=== PATIENT | male | born 1940 | race Caucasian/White ===

== ENCOUNTER → 2016-08-31 | Outpatient (CLI) | payer MEDICARE ==
[~2016-08-31] MED LIST: /TAMS4CA PO; ALLO300T PO; ASPI1TAB PO; BABY81CH OR; CARV3.12 PO; CEFT500T OR; CIPR25SS OR; CIPR500T4 OR; CITRTAB15 PO; CORE6.25 OR; COUM1TAB14 PO; FEBU40TA PO; FISH OIL CAPS PO; FLAG500T OR; HYDR25TA6 PO; LEVA250T PO; LISI20TA5 PO; PRIL40CA OR; SIMV10TA2 PO; TAMS0.4C2 PO; TYL PO; ZOCO40TA PO
[2016-08-31 19:35] LABS: CALCIUM LEVEL 8.3 MG/DL (8.8-10.2); CREATININE FOR GFR 8.26 MG/DL (0.70-1.30); GLOMERULAR FILTRATION RATE 6.7 (>42); POTASSIUM SERUM 3.9 MEQ/L (3.5-5.1)
== END ==
LOC: M SMT 15:10
PROVIDERS: ATTEND Urology
DX: N28.89 Other specified disorders of kidney and ureter (principal)

== ENCOUNTER → 2016-08-31 | Outpatient (CLI) | payer MEDICARE | LOC: M SMT 15:15 | PROVIDERS: ATTEND Internal Medicine Nephrology | DX: Z01.818 Encounter for other preprocedural examination (principal); N28.89 Other specified disorders of kidney and ureter ==

== ENCOUNTER 2016-09-14 20:25 | Emergency (ER) | payer MEDICARE ==
[~2016-09-14] VITALS: Ht 182.9 cm; Wt 81.6 kg
[2016-09-14] MEDS ORDERED: RENATAB5 (20:49)
[2016-09-14] MEDS ORDERED: MAGN400T2 (20:49)
[2016-09-14] MEDS ORDERED: SENE8.6T (20:49)
[2016-09-14] MEDS ORDERED: FOSR1000 (20:49)
[2016-09-14] MEDS ORDERED: WARF-58 (20:49)
[2016-09-14] MEDS ORDERED: CITRTAB15 PO (20:49)
[2016-09-14] MEDS ORDERED: ASPIRIN 81 MG CHEW TABLET PO ONE (21:30)
[2016-09-14 21:37] LABS: BASO % 0.5 % (0.0-1.0); EOS # 0.2 K/mm3 (0.0-0.50); EOS % 1.6 % (0.0-3.0); LARGE UNSTAINED CELL # 0.3 K/mm3 (0.0-0.4); LARGE UNSTAINED CELL % 2.6 % (0.0-4.0); LYMPH # 1.1 K/mm3 (1.5-4.5); LYMPH % 8.8 % (24.0-44.0); MEAN CORPUSCULAR HEMOGLOBIN 29.9 pg (27.0-33.0); MEAN CORPUSCULAR HGB CONC 32.1 g/dl (32.0-36.5); MEAN CORPUSCULAR VOLUME 93.2 fl (80.0-96.0); MONO # 0.8 K/mm3 (0.0-0.8); MONO % 7.9 % (0.0-5.0); NEUTROPHILS # 7.5 K/mm3 (1.8-7.7); NEUTROPHILS % 78.6 % (36.0-66.0); PLATELET COUNT, AUTOMATED 159 k/mm3 (150-450); WHITE BLOOD COUNT 9.5 K/mm3 (4.0-10.0)
[2016-09-14 21:43] LABS: INR 2.03
[2016-09-14 21:53] LABS: CALCIUM LEVEL 8.5 MG/DL (8.8-10.2); CREATININE FOR GFR 8.69 MG/DL (0.70-1.30); GLOMERULAR FILTRATION RATE 6.3 (>42); POTASSIUM SERUM 3.2 MEQ/L (3.5-5.1)
[2016-09-15 04:34] VITALS: BP 98/55
--- NOTE | 2016-09-15 06:16 | ECGEPIP ---
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
--- NOTE | 2016-09-19 19:49 | ECGEPIP ---
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 ATRIAL FIBRILLATION ELECTRONIC VENTRICULAR PACEMAKER -- CONTOUR ANALYSIS BASED ON INTRINSIC RHYTHM INTRAVENTRICULAR CONDUCTION DELAY PVCS CW 09/14/16 RATE INCREASED Electronically Signed On 09-19-2016 19:49:34 EDT by Kelin Hagen
== END 2016-09-15 04:44 | disposition home or self-care (01) ==
LOC: M ED 21:36
DX: R07.89 Other chest pain (principal); I48.91 Unspecified atrial fibrillation; I25.10 Atherosclerotic heart disease of native coronary artery without angina pectoris; N18.9 Chronic kidney disease, unspecified; Z99.2 Dependence on renal dialysis; Z79.899 Other long term (current) drug therapy; Z79.01 Long term (current) use of anticoagulants; Z79.82 Long term (current) use of aspirin; Z88.8 Allergy status to other drugs, medicaments and biological substances

== ENCOUNTER 2016-11-09 09:23 | Inpatient (IN) | payer MEDICARE ==
[~2016-11-09] VITALS: Ht 183.5 cm; Wt 87.9 kg
[~2016-11-09 09:23] MED LIST changes: +FOSR1000 PO; +MAGN400T2 PO; +RENATAB5 PO; +SENE8.6T PO; +WARF-58
[2016-11-09] MEDS ORDERED: ACETAMINOPHEN TAB 650MG DOSE (2X325MG) PO PRN (10:00)
[2016-11-09] MEDS ORDERED: zolPIDEM TARTRATE 5 MG TAB PO PRN (10:00)
[2016-11-09 10:10] VITALS: BP 99/62
[2016-11-09] MEDS ORDERED: WARF-58 PO ×2 (10:46→10:47)
[2016-11-09] MEDS ORDERED: FLOM5CAP PO (10:46)
[2016-11-09] MEDS ORDERED: CALC1CAP31 PO (10:52)
[2016-11-09] MEDS ORDERED: ISON300T4 PO (10:52)
[2016-11-09] MEDS ORDERED: VITA100066 PO (10:52)
[2016-11-09] MEDS: MULTIVITAMINS/MINERALS THERAP 1 TAB PO SCH (11:27)
[2016-11-09] MEDS: DOCUSATE SODIUM 100 MG CAP PO SCH ×2 (11:27→21:32)
[2016-11-09] MEDS: AMIODARONE 200 MG TAB (PACERONE) PO SCH ×3 (11:27→21:31)
[2016-11-09 12:00] VITALS: BP 83/50
[2016-11-09 12:11] LABS: BASO % 0.3 % (0.0-1.0); EOS # 0.1 K/mm3 (0.0-0.50); EOS % 1.8 % (0.0-3.0); LARGE UNSTAINED CELL # 0.3 K/mm3 (0.0-0.4); LARGE UNSTAINED CELL % 4.2 % (0.0-4.0); LYMPH # 0.9 K/mm3 (1.5-4.5); LYMPH % 12.2 % (24.0-44.0); MEAN CORPUSCULAR HEMOGLOBIN 30.6 pg (27.0-33.0); MEAN CORPUSCULAR VOLUME 95.7 fl (80.0-96.0); MONO # 0.7 K/mm3 (0.0-0.8); MONO % 8.7 % (0.0-5.0); NEUTROPHILS # 5.7 K/mm3 (1.8-7.7); NEUTROPHILS % 72.9 % (36.0-66.0); PLATELET COUNT, AUTOMATED 141 k/mm3 (150-450); RED CELL DISTRIBUTION WIDTH 14.4 % (11.5-14.5); WHITE BLOOD COUNT 7.8 K/mm3 (4.0-10.0)
[2016-11-09 12:16] LABS: INR 2.7
[2016-11-09 12:27] LABS: ALBUMIN 2.2 GM/DL (3.2-5.2); ALBUMIN/GLOBULIN RATIO 0.47 (1.00-1.93); BILIRUBIN,TOTAL 0.5 MG/DL (0.2-1.0); CALCIUM LEVEL 9.1 MG/DL (8.8-10.2); CREATININE FOR GFR 8.36 MG/DL (0.70-1.30); GLOMERULAR FILTRATION RATE 6.6 (>42); MAGNESIUM LEVEL 2.5 MG/DL (1.8-2.4); PHOSPHORUS LEVEL 6.7 MG/DL (2.5-4.9); POTASSIUM SERUM 4.1 MEQ/L (3.5-5.1); TOTAL PROTEIN 6.9 GM/DL (6.4-8.2)
--- NOTE | 2016-11-09 12:38 | REP ---
CHEST, TWO VIEWS: Two views of the chest are performed and compared to prior studies of 03/28/2015 as well as other prior exams. There is chronic mild elevation of the right hemidiaphragm. There is chronic mild bibasilar fibroatelectatic change. Ill-defined parenchymal opacity in the right costophrenic angle region is of uncertain significance and could represent a more acute area of atelectasis or infiltrate. Heart is normal in size. Mediastinal silhouette is unchanged. Left dual lead pacemaker is again noted. There are degenerative changes of the spine. IMPRESSION: Chronic fibroatelectatic changes. There appears to be a small ill-defined density in the right costophrenic angle region which may represent a small area of atelectasis or infiltrate. Followup recommended. Signed by Sesar Gregory MD 11/09/2016 12:44 P
[2016-11-09] MEDS ORDERED: AMIODARONE 200 MG TAB (PACERONE) PO ONE (12:45)
[2016-11-09] MEDS: LANTHANUM CARBONATE 500 MG CHEW TABLET PO SCH ×2 (12:54→17:36)
[2016-11-09 16:00] VITALS: BP 108/50
[2016-11-09] MEDS: VITAMIN D 1,000 INTERNATIONAL UNITS TABLET PO SCH (17:36)
[2016-11-09 19:18] VITALS: BP 90/60
--- NOTE | 2016-11-09 19:58 | HPE ---
DATE OF ADMISSION: 11/09/2016 ADMISSION HISTORY AND PHYSICAL ATTENDING PHYSICIAN: Dr. Chung Olivares CHIEF COMPLAINT: Increasing shortness of breath and positional lightheadedness. HISTORY: This 76-year-old father of five grown children, retired h[employer] , resident of [place], is well known to my cardiology practice with ischemic, hypertensive, and valvular heart disease complicated by abnormal EKG, conduction tissue disease/paroxysmal atrial fibrillation/dual-chamber pacemaker in situ and heart failure (systolic and diastolic). He presented to my office earlier today for a followup appointment and pacemaker check prior to tentative elective colonoscopy November 18, 2016. Upon his examination, he was in no apparent distress and actually walked into the office. Vital signs showed a heart rate of up to 150 beats per minute and regular with irregularity, blood pressure supine 88/50. Neck veins were not elevated. He did not have inspiratory rales or systemic edema but EKG showed underlying atrial fibrillation with recurrent runs of nonsustained ventricular tachycardia with average heart rate of 157 beats per minute. Appropriate ventricular sensing and pacing was documented. In light of his arrhythmia, reported symptoms and hypotension, he was transported to [facility] by ambulance and admitted to the telemetry floor for antiarrhythmic therapy. OTHER CARDINAL CARDIAC SYMPTOMS: Admits at this point to have increasing shortness of breath and ease of fatigue since his last appointment April 2016. Remarkably, he would still walk at his own pace for up to half an hour! With peritoneal dialysis, his weight has been stable. Claims to sleep well. Awakened at 4:00 a.m. with leg cramps. Has remained free of any effort related chest, jaw, or arm discomfort. Has been unaware of his heart action, though he reports his daily vital signs have shown heart rates ranging from 45-172 with systolic blood pressures ranging from 95-130. Despite this, he had not reported this to his providers. Admits to momentary positional lightheadedness but has not fallen. Some bruising but no significant bleeding problems on his current warfarin and aspirin therapies. Denies symptoms or sign of embolic phenomenon. Denies claudication. KNOWN PAST CARDIAC DISEASE/EVENTS/TESTS: Silent prior inferior wall myocardial infarction (IWMI). Serial pharmacological stress heart scans, last study September 01, 2016, showed no inducible chest pain or EKG change. The peak heart rate was up to 133 beats per minute, blood pressure 105/55 and note was made of frequent PVCs with appropriate pacemaker function. Nuclear imaging showed a mildly dilated left ventricle with inferior akinesis, left ventricular ejection fraction (LVEF) 35% question, moderate fixed inferior myocardial perfusion defect but no reversible abnormality. Left ventricular size appears to have increased and ejection fraction decreased since his last study of October 17, 2014, likely related to his increased ventricular ectopy. Last echocardiogram September 22, 2016, showed borderline left ventricular hypertrophy with inferior akinesis and moderate impairment of global resting left ventricular systolic function. Left atrium was mildly enlarged with Doppler evidence of an impairment of left ventricular (LV) diastolic function but only mildly elevated mean left atrial pressure. Normal right heart chamber sizes and contraction with only mild pulmonary hypertension. Normal inferior vena cava (IVC) size and collapse. Mildly dilated aortic root with mild to moderate aortic stenosis and very mild aortic insufficiency. Moderate mitral annular calcification without functional valvular abnormality. No pericardial effusion. Underwent dual-chamber pacemaker implantation September 24, 2010 ([employer], model [id number]) for intermittent high-grade atrioventricular (AV) block. CORONARY RISK FACTORS: Male gender. Age. Hypertension. Hypercholesterolemia. Prior smoker (1-1/2 packs per day for 50 years, quit in 2007) and family history of premature coronary heart disease. OTHER PAST MEDICAL/SURGICAL HISTORY: Appendectomy. Prior inguinal and umbilical herniorrhaphies. Prior hospitalization for peptic ulcer disease - nonhemorrhagic. Postcholecystectomy February 2011. Circumcision October 2012. Chronic renal insufficiency with AV fistula formation right upper arm June, and peritoneal dialysis catheter placement January 29, 2015. Currently peritoneal dialysis dependent renal failure. History of polycystic kidney disease. Prior prostatism. Smoking-induced chronic obstructive pulmonary disease(COPD). Bilateral carotid bruits. Lower extremity arterial ultrasound October 28, 2016 was technically difficult because of calcific shadowing with poor visualization of the left iliacs due to shadowing from his peritoneal dialysis catheter. No hemodynamically significant stenosis was suspected. SYSTEMS REVIEW: Denies any fever, chills or weight loss. Has reduced visual acuity. Wears glasses for reading. Some hearing loss, wears hearing aids in both ears. Effort dyspnea as mentioned, but no cough, hemoptysis or sputum. Denies any change in appetite, abdominal pain or change in bowel habit. No apparent GI bleeding. Reduced urinary stream but no dysuria or hematuria. Intermittent leg cramps as mentioned. Bilateral hip arthralgia. History of psoriasis. Intolerance to cold. Bruises easily. All other systems review is negative. MEDICATIONS: Carvedilol 3.125 mg twice a day, aspirin 81 mg daily, warfarin 3 mg as directed by Dr. Han, isoniazid 300 mg daily, magnesium oxide 400 mg twice a day, Flomax 0.4 mg daily, Uloric 40 mg three times a week by mouth, Fosrenol 1 gram by mouth three times a day, Heidi-Nayla one tablet daily, calcitriol 0.25 mcg daily, vitamin D3 1000 units daily, LiquaCel 1 ounce daily and Senexon-S 8.6-50 one tablet twice a day ALLERGIES: None known. PHYSICAL EXAMINATION: Constitutional: Pleasant, bright elderly male of medium body build. Did not appear in any acute distress as mentioned. Vital signs: Heart rate 150 beats per minute and regular with frequent irregularities. Blood pressure 88/50 supine and 95/45 measured in his left arm (right upper arm AV fistula) using a medium size cuff. Respiratory rate 16 per minute, weight 183 pounds, height 72 inches, body mass index (BMI) 25.1. Afebrile. Eyes: No conjunctival pallor or icterus. No xanthelasma. ENT/Mouth: Edentulous with upper and lower dentures. Normal oral moisture. No central cyanosis. Neck: Trachea midline. Thyroid normal in size. Jugular veins appear to be at the level of the sternal angle. Respiratory: Slightly increased anteroposterior chest diameter with well-healed pacemaker incision left subclavian region. Chest expansion was symmetrical. No inspiratory rales. Slight prolongation of expiration but no audible wheeze. Cardiovascular: Apical impulse not palpable. Heart sounds were quite variable related to his arrhythmia. No audible gallop or murmur. Normal carotid upstrokes but variable volume related to his arrhythmia. Has right upper arm dialysis arteriovenous (AV) fistula. Slightly reduced right radial but normal left radial pulse. Femoral pulses were symmetrical and normal. Pedal pulses appear to be slightly reduced. No current dependent edema. Extremities: No clubbing, peripheral cyanosis or splinter hemorrhages. GI: Soft, nontender abdomen, slightly protuberant because of dialysis fluid, dialysis catheter lower abdomen. No hepatosplenomegaly with liver span measuring 9 cm in the right midclavicular line. Rectal examination not indicated. Musculoskeletal: Normal gait. No obvious joint deformities. Normal appearing muscular strength and tone. Normal spine. Skin: Ecchymotic lesions over both forearms with some chronic atrophic changes both lower extremities. Neurologic/Psychologic: Bright, alert and oriented, gave a lucid history. Eye, facial and extremity movements appeared to be symmetrical and normal. LABORATORY DATA: Hemoglobin 11.9. Normal white blood cell count and platelet count. PT/INR 28.7/2.7 on his current warfarin therapy. Slight hyponatremia, sodium 133. Other electrolytes appear to be normal. BUN 117, creatinine 8.36, fasting glucose 106. Serum albumin 2.2 with serum calcium of 9.1 with phosphorus 6.7. Magnesium level was slightly elevated at 2.5. Troponin I was indeterminate at 0.27. Ultrasensitive TSH was normal at 2.6, total cholesterol 109, triglycerides 101. Normal total bilirubin. Marginally elevated SGOT but normal SGPT and alkaline phosphatase. Slightly elevated lactate dehydrogenase at 300 and total creatinine kinase was slightly elevated at 406. Chest x-ray: PA and left lateral study reviewed independently shows at least borderline cardiomegaly with CT ratio of 16.3:33.4. Slightly unfolded thoracic aorta but normal appearing pulmonary vasculature. Well inflated lung iraheta with slightly flattened diaphragms on the lateral projection. Dual-chamber pacemaker with pulse generator left subclavian region and stable bipolar pacing leads in the right atrium and right ventricular apex. Slight degenerative changes of his thoracic spine on the lateral projection. EKG: My office tracing at 8:48 a.m. showed underlying atrial fibrillation/flutter with appropriate ventricular paced beats alternating with frequent nonsustained runs of ventricular tachycardia (marked rightward axis and left bundle branch block configuration). Average heart rate was 157 beats per minute. His pacemaker was sensing and pacing appropriately. There was no question this ectopy was new from September 01, 2016. IMPRESSION/PLAN: 1. Recurrent nonsustained ventricular tachycardia: No clear etiology for his ventricular arrhythmia is identifiable. No acute ischemia. Current electrolytes are in balance. Ultrasensitive thyroid-stimulating hormone (TSH) is normal. Blood pressure is well controlled and he is compensated. The patient has been admitted to a telemetry unit for close observation, and the introduction of amiodarone antiarrhythmic therapy starting at 200 mg four times a day. Our plan is to monitor in the hospital for the next 4-5 days during amiodarone loading. 2. Paroxysmal atrial fibrillation: From his EKG today, he has developed recurrent atrial tachyarrhythmia since his EKG August 2016. Again, this may be contributing to his impaired sense of well being. His current rapid heart rates are actually due to his ventricular tachycardia not his atrial fibrillation. Has been free of any thromboembolic event or significant hemorrhagic complication on his current oral anticoagulation. He will remain on carvedilol, but our plan is to switch him from warfarin to Xarelto in light of the introduction of amiodarone therapy. 3. AV block/dual-chamber pacemaker in situ: We were unable to evaluate his pacemaker in light of his ventricular ectopy earlier today. Prior to his discharge home with regularization of his rhythm, I am confident we will be able to accomplish this. 4. 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 EKG abnormalities observed today are primarily related to his ventricular arrhythmia. His troponin I level was indeterminate. Followup EKG and Troponin I level will be obtained in the morning. For the time being, he remains on combination carvedilol and low dose aspirin. His simvastatin therapy was discontinued because of myalgia. 5. 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 I am cautiously optimistic this will improve with restorationism of his rhythm. Current blood pressure was somewhat soft because of his ventricular arrhythmia. As mentioned, electrolytes are in balance. 6. Chronic renal insufficiency/Peritoneal dialysis dependent. I have spoken with Dr. Han who has kindly agreed to be consulted to manage his peritoneal dialysis in hospital. As mentioned, he will remain on his low-dose carvedilol. 7. Nonrheumatic aortic valve disorder: Last echocardiogram earlier this year showed mild to moderate aortic stenosis with very mild aortic insufficiency along with moderate mitral annular calcification but no functional mitral valvular abnormality. In light of his arrhythmia today, I did not detect any significant murmur. No symptoms or signs of endocarditis. 8. Thoracic aortic aneurysm without rupture: An incidental finding on prior echocardiographic study last echocardiogram earlier this year showed again no change in the size of his aorta from previous echocardiographic examinations. I have discussed my plan with the patient who appears to understand and agree. Further investigations and treatment will depend on his response to these initial measures. Copy To: MIGDALIA Melendez Dr[address] Nephrology Dr. Michael Yoo, Gastroenterology [facility]
[2016-11-09] MEDS: MAGNESIUM OXIDE 400 MG TAB (MAG-OX) PO SCH (21:00)
--- NOTE | 2016-11-09 21:07 | CR ---
DATE OF CONSULTATION: 11/09/2016 Nephrology consultation for Chung Olivares MD REASON FOR CONSULTATION: Is to assist in the management of end-stage renal disease. HISTORY OF PRESENT ILLNESS: Mr. Cordova is a 76-year-old gentleman with multiple chronic medical problems. He has known history of end-stage renal disease secondary to polycystic kidneys. He also has history of systolic and diastolic congestive heart failure. He was seen in cardiology office by Dr. Olivares for a routine followup. He was noticed to have ventricular tachycardia on EKG due to which he is admitted to progressive care unit. The patient does have chronic history of congestive heart failure. He is scheduled for colonoscopy and needed cardiology clearance prior to procedure. Due to ventricular tachycardia he is now admitted to progressive care unit. The patient needs his peritoneal dialysis due to which nephrology consultation was requested. PAST MEDICAL AND SURGICAL HISTORY: Significant for: 1. History of coronary artery disease with prior inferior wall myocardial infarction (CT). 2. History of end-stage renal disease secondary to polycystic kidneys. 3. Anemia of chronic kidney disease. 4. Ischemic cardiomyopathy. 5. History of systolic and diastolic congestive heart failure. 6. History of secondary hyperparathyroidism. 7. History of appendectomy. 8. Inguinal and umbilical hernia repair. 9. History of cholecystectomy. 10. History of circumcision. 11. History of AV fistula creation. 12. History of peritoneal dialysis catheter placement. 13. History of chronic obstructive pulmonary disease (COPD). 14. History of carotid artery stenosis. MEDICATIONS: His home medications include Coreg 3.125 mg twice a day, aspirin 81 mg daily, warfarin 3 mg daily, INH 300 mg daily, magnesium oxide 400 mg twice a day, Flomax 0.4 mg daily, Uloric 40 mg three times a week, Fosrenol 1 gram three times a day, Heidi-Nayla one tablet daily, calcitriol 0.25 mcg daily, vitamin D 1000 units daily, Senokot one tablet twice a day, and Liqui-Gricelda 1 ounce daily. REVIEW OF SYSTEMS: The patient denies any fever or chills. He is slightly hard of hearing. He denies any nose or throat problems. Cardiovascular system is significant for frequent episodes of tachycardia even at home. He has chronic mild hypotension. Respiratory system is significant for COPD. Gastrointestinal (GI) system is negative for nausea, vomiting or diarrhea. Genitourinary () system is negative for dysuria or hematuria. Endocrine system is negative for diabetes or thyroid problems. Hematological system is significant for anemia of chronic kidney disease. Psychosocial system is negative for depression, anxiety. Neurological system is negative for seizures. Skin is negative for rash or ulcers. Musculoskeletal system is significant for chronic degenerative arthritis. PHYSICAL EXAMINATION: The patient is awake and alert and without any acute distress. Temperature is 97 degrees Fahrenheit, heart rate 130 per minute and respiratory rate 18 per minute. Blood pressure 99/62 mmHg and oxygen saturation 94%. He is currently on 2 liters oxygen. His head is atraumatic. Ears, nose and throat are unremarkable. Pupils equal and reactive to light and sclerae is anicteric. Neck is supple and JVD is mildly elevated. Heart sounds are tachycardiac and irregular. Lungs with diminished breath sounds at bases. Abdomen is distended with peritoneal dialysis fluid. There is no tenderness and bowel sounds are normal. Peritoneal dialysis catheter is intact without any signs of infection. Extremities have no cyanosis or clubbing. Skin has no rash or ulcers. Neurologically he is awake, alert and oriented times three. LABORATORY DATA: WBC count 7.8, hemoglobin 11.9 and hematocrit 37.1. Platelets 141. Sodium 133 and potassium 4.1. BUN 117 and creatinine 8.36. Phosphorus 6.7 and calcium 9.1. Magnesium 2.5. AST 42, ALT 18, alkaline phosphatase 58, LDH 300 and CPK 406. Total protein is 6.9 and albumin 2.2. TSH 2.59. PROBLEMS: 1. End-stage renal disease. The patient has been on peritoneal dialysis at home. We will continue with peritoneal dialysis and perform five exchanges per day with 2 liters bag. His adequacy testing has been done every 3 months and he seems to have adequate peritoneal dialysis with current prescription even though his BUN and creatinine look somewhat high. The patient does not have any overt uremic symptoms. 2. Hyponatremia. This is mild and related to end-stage renal disease. At present no intervention is indicated and will continue to monitor his electrolytes as indicated. 3. Anemia. His anemia is mild and does not need any intervention. 4. Ventricular tachycardia. Most likely related to ischemic heart disease. His electrolytes including calcium and magnesium are within normal range. His volume status also is reasonably well-compensated. The patient is being started on amiodarone by Dr. Olivares. 5. Gout. The patient has been doing well on Uloric 40 mg three times a week which will be continued. 6. BPH. The patient remains on Flomax 0.4 mg daily. 7. Hyperphosphatemia. The patient is on Fosrenol 1000 mg three times a day with meals. He will continue with low phosphorus diet. I thank you for involving me in the care of Mr. Cordova. I will follow him along with you.
[2016-11-09 21:27] VITALS: BP 95/57
[2016-11-09] MEDS: TAMSULOSIN 0.4 MG CAP PO SCH (21:32)
[2016-11-09] MEDS: CARVedilol 3.125 MG TAB PO SCH (21:32)
--- NOTE | 2016-11-09 21:53 | ECGEPIP ---
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
[2016-11-09] MEDS ORDERED: SLF 3 ML SYR IV PRN (22:30)
[2016-11-09 23:41] VITALS: BP 88/52
[2016-11-10] VITALS (7 sets, daily range): BP systolic 82–96; BP diastolic 52–62
[2016-11-10 06:33] LABS: INR 3.05
[2016-11-10 06:43] LABS: MAGNESIUM LEVEL 2.2 MG/DL (1.8-2.4)
[2016-11-10] MEDS: SLF 3 ML SYR IV SCH ×3 (06:47→20:14)
[2016-11-10] MEDS: LANTHANUM CARBONATE 500 MG CHEW TABLET PO SCH ×3 (07:13→17:21)
[2016-11-10] MEDS: AMIODARONE 200 MG TAB (PACERONE) PO SCH ×4 (09:02→20:13)
[2016-11-10] MEDS: CARVedilol 3.125 MG TAB PO SCH ×2 (09:03→20:15)
[2016-11-10] MEDS: ASPIRIN 81 MG CHEW TABLET PO SCH (09:03)
[2016-11-10] MEDS: CALCITRIOL 0.25 MCG CAP (S0169) PO SCH (09:03)
[2016-11-10] MEDS: DOCUSATE SODIUM 100 MG CAP PO SCH ×2 (09:03→20:13)
[2016-11-10] MEDS: MAGNESIUM OXIDE 400 MG TAB (MAG-OX) PO SCH ×2 (09:04→20:14)
[2016-11-10] MEDS: MULTIVITAMINS/MINERALS THERAP 1 TAB PO SCH (09:04)
[2016-11-10] MEDS: ISONIAZID 300 MG TAB PO SCH (09:09)
[2016-11-10 09:38] LABS: CALCIUM LEVEL 8.4 MG/DL (8.8-10.2); CREATININE FOR GFR 8.22 MG/DL (0.70-1.30); GLOMERULAR FILTRATION RATE 6.8 (>42); POTASSIUM SERUM 3.1 MEQ/L (3.5-5.1)
[2016-11-10] MEDS ORDERED: HEPARIN SOD (PORCINE) 5000 UNITS/ML VIAL PD ONE (10:30)
[2016-11-10] MEDS ORDERED: HEPARIN 1,000 UNITS/ML 10ML VIAL (FOR RADIOLOGY& DIALYSIS ONLY) XX ONE (13:00)
[2016-11-10] MEDS ORDERED: POTASSIUM CHLORIDE 10 MEQ SR TABLET PO ONE (14:45)
--- NOTE | 2016-11-10 16:16 | ECGEPIP ---
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
[2016-11-10] MEDS: VITAMIN D 1,000 INTERNATIONAL UNITS TABLET PO SCH (17:21)
[2016-11-10] MEDS: TAMSULOSIN 0.4 MG CAP PO SCH (20:14)
--- NOTE | 2016-11-10 20:22 | IPN ---
DATE: 11/10/2016 CARDIOLOGY PROGRESS NOTE SUBJECTIVE: The patient continues to be literally free of cardiovascular complaint on his limited activity in the room. Has been up to the bathroom without lightheadedness, shortness of breath, or chest discomfort. Appears to tolerate his medications at this point without adverse effect. OBJECTIVE: Pleasant, elderly male of medium body build laying comfortably flat. Heart rate currently 90 beats per minute and regular with regular irregularity. Blood pressure 102/60 supine, 90/54 sitting with legs dependent, respiratory rate 18, oxygen saturation 96% on room air. Afebrile. His weight today is slightly up from yesterday related to his peritoneal dialysis in situ. Slight peripheral cyanosis but no pallor or central cyanosis. Neck veins remain at the level of the sternal angle. Good air entry over both lung iraheta with no more than subtle bibasilar inspiratory rales that clear with a deep breath. No dependent edema. 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 No further strings of ventricular tachycardia as we have seen yesterday. EKG: Today's tracing reviewed independently again shows underlying atrial fibrillation with considerably more ventricular pacing with his amiodarone therapy, bigeminal PVCs. Underlying paced complexes showing left vera axis and LVBD configuration as before. This appearance did not appear to be changed. LABORATORY DATA PT/INR today was actually higher than yesterday at 31.6 and INR 3.05. Electrolytes showed a serum potassium of 3.1, but normal serum bicarbonate. Other electrolytes were normal with magnesium down to 2.2, holding his magnesium replacement at this time. BUN 108, creatinine 8.2, fasting glucose 104. Troponin I remains indeterminate at 0.24. IMPRESSION AND PLAN: 1. Recurrent nonsustained ventricular tachycardia: Gratifyingly, with amiodarone antiarrhythmic therapy, continues to still have fairly frequent low grade ventricular ectopic activity but no ventricular tachycardia. At this point, I believe it is safe for him to begin ambulating at least in his room. We will continue with amiodarone loading at 200 mg four times a day. 2. Paroxysmal atrial fibrillation: Tracing today again shows a sustained atrial fibrillation. I am hoping the course of this may respond to amiodarone therapy as well. His PT/INR today remains quite elevated, so we will not consider starting his Xarelto at this time. 3. AV block/dual-chamber pacemaker in situ: His device continues to function appropriately. Currently mode switched to VVI setting because of his underlying atrial fibrillation. The device is sensing and pacing appropriately. 4. 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 Troponin I level remains indeterminate because of his renal insufficiency. Remains on carvedilol and low-dose aspirin at this time. 5. 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 Slight hypokalemia but otherwise electrolyte balance. Blood pressure is somewhat soft on very low-dose carvedilol and Flomax. I am cautiously optimistic with control of his arrhythmia, left ventricular systolic function will improve. As mentioned, I believe it is safe at this point to allow the patient to begin to ambulate, but we will continue to keep him on classroom monitor with our amiodarone loading the next 4 days. MTDD
--- NOTE | 2016-11-10 20:53 | IPN ---
DATE: 11/10/2016 Mr. Cordova is seen this morning on his bedside. He is feeling well and denies any complaints. He reports that his peritoneal dialysis has been functioning very well. He denies any nausea, vomiting, dyspnea or chest pain. PHYSICAL EXAMINATION: Temperature 98.4 degrees Fahrenheit, heart rate 90 per minute and respiratory rate 18 per minute. Blood pressure 96/62 mmHg and oxygen saturation 96% on room air. Head is atraumatic. Neck is supple and without jugular venous distention (JVD) or thyroid enlargement. Ears, nose and throat are unremarkable. Pupils equal and reactive to light and sclerae is anicteric. Heart sounds are irregular in rhythm. Lungs clear to auscultation. Abdomen soft and filled with peritoneal dialysis solution. Bowel sounds are normal. Extremities have no cyanosis or clubbing. Skin has no rash or ulcers. Neurologically he is awake, alert and oriented times three. Today's labs show sodium level 134, potassium 3.1, BUN 108 and creatinine 8.22. Calcium 8.4 and phosphorus 6.0. Troponin is 0.24. Albumin 2.0. PROBLEMS: 1. End-stage renal disease. Patient will continue with peritoneal dialysis five exchanges per day. He is tolerating his dialysis treatment very well. 2. Hypokalemia, most likely related to decreased oral intake of potassium. The patient will be given one dose of 40 mEq potassium chloride today and we will recheck his electrolytes tomorrow morning. 3. Hyperphosphatemia. Slight improvement in the phosphorus level is noticed. We will continue with current phosphate binder and low phosphorus diet. Renal profile will be checked tomorrow morning. 4. Anemia. We will repeat his complete blood count (CBC) tomorrow and continue to monitor. No intervention is indicated at this point. 5. Ventricular tachycardia. The patient has improved ventricular rate and remains on amiodarone. 6. Hypotension. This is a chronic issue and the patient is asymptomatic. I will defer any intervention to cardiology.
[2016-11-11 03:55] VITALS: BP 86/52
[2016-11-11 05:34] LABS: MEAN CORPUSCULAR HEMOGLOBIN 30.7 pg (27.0-33.0); MEAN CORPUSCULAR HGB CONC 32.3 g/dl (32.0-36.5); MEAN CORPUSCULAR VOLUME 95.2 fl (80.0-96.0); RED CELL DISTRIBUTION WIDTH 14.5 % (11.5-14.5); WHITE BLOOD COUNT 5.6 K/mm3 (4.0-10.0)
[2016-11-11] MEDS: SLF 3 ML SYR IV SCH ×3 (05:45→21:37)
[2016-11-11 05:59] LABS: CALCIUM LEVEL 7.9 MG/DL (8.8-10.2); CREATININE FOR GFR 8.84 MG/DL (0.70-1.30); GLOMERULAR FILTRATION RATE 6.2 (>42); PHOSPHORUS LEVEL 5.8 MG/DL (2.5-4.9); POTASSIUM SERUM 3.7 MEQ/L (3.5-5.1)
[2016-11-11] MEDS: LANTHANUM CARBONATE 500 MG CHEW TABLET PO SCH ×3 (07:11→17:39)
[2016-11-11 08:00] VITALS: BP 87/52
[2016-11-11] MEDS: ASPIRIN 81 MG CHEW TABLET PO SCH (08:49)
[2016-11-11] MEDS: ISONIAZID 300 MG TAB PO SCH (08:49)
[2016-11-11] MEDS: MULTIVITAMINS/MINERALS THERAP 1 TAB PO SCH (08:49)
[2016-11-11] MEDS: FEBUXOSTAT 40 MG TABLET (ULORIC) PO SCH (08:49)
[2016-11-11] MEDS: MAGNESIUM OXIDE 400 MG TAB (MAG-OX) PO SCH ×2 (08:50→21:38)
[2016-11-11] MEDS: POTASSIUM CHLORIDE 10 MEQ SR TABLET PO SCH (08:50)
[2016-11-11] MEDS: CARVedilol 3.125 MG TAB PO SCH ×2 (08:50→21:38)
[2016-11-11] MEDS: DOCUSATE SODIUM 100 MG CAP PO SCH ×2 (08:50→21:37)
[2016-11-11] MEDS: AMIODARONE 200 MG TAB (PACERONE) PO SCH ×4 (08:50→21:38)
[2016-11-11] MEDS: CALCITRIOL 0.25 MCG CAP (S0169) PO SCH (08:50)
--- NOTE | 2016-11-11 10:29 | IPN ---
DATE: 11/11/2016 CARDIOLOGY PROGRESS NOTE SUBJECTIVE: The patient was up in the hallway walking short distance with assistance and claims to have felt somewhat unsteady, but otherwise has been feeling well. Denies chest discomfort, palpitations or shortness of breath. OBJECTIVE: Pleasant elderly male of medium body build, laying comfortably flat. Heart rate 82 beats per minute and regular with frequent irregularities. Blood pressure 86/50 supine, 90/50 sitting with legs dependent. respiratory rate 18 per minute, O2 saturation 98% on room air. Remains afebrile. His weight today is slightly higher than yesterday. Normal oral moisture. Trachea midline. Neck veins at the level of the sternal angle. Has no dependent edema. Good air entry over both lung iraheta with no adventitious sounds at this time. 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 Remains free of further ventricular tachycardia. LABORATORY DATA: Hemoglobin today is down to 10.4, normal white blood cell count. Platelet count 121,000. No PT/INR was drawn today. Serum sodium stable at 133, potassium improved from yesterday at 3.7. Other electrolytes are in balance, BUN is down to 96, creatinine stable at 8.8, serum calcium 7.9, but albumin is 2.0, phosphorus is down to 5.8. IMPRESSION/PLAN: 1. Recurrent nonsustained ventricular tachycardia: Remains free of further runs of ventricular tachycardia and is tolerating his amiodarone well at this time. Continue with amiodarone loading at 200 mg q.i.d. Will plan on monitoring him for an additional 2-3 days. 2. Paroxysmal atrial fibrillation: Unfortunately at this point, he still remains in atrial fibrillation, but his ventricular response is controlled on low-dose carvedilol and amiodarone. No PT/INR was obtained today as his value was quite elevated yesterday. A followup study has been requested the morning. 3. AV block/dual-chamber pacemaker in situ: His device continues to be functioning appropriately - pacing mode currently VVI. Will plan on completing a pacemaker check during this admission. 4. 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 No followup EKG was obtained today. At this point remains on low-dose carvedilol and aspirin antiplatelet therapy. 5. Hypertensive heart disease with heart failure (systolic and diastolic dysfunction): Remains compensated with his peritoneal dialysis. Somewhat soft blood pressure on his low-dose carvedilol and Flomax. I plan to speak with Dr. Han regarding his Flomax therapy. Will continue with the same amiodarone loading plan as mentioned above for additional 2-3 days.
[2016-11-11] MEDS: BISACODYL 5 MG TAB PO SCH (10:31)
[2016-11-11 12:00] VITALS: BP 70/50
[2016-11-11 13:30] VITALS: BP 82/54
[2016-11-11 16:00] VITALS: BP 84/58
[2016-11-11] MEDS: VITAMIN D 1,000 INTERNATIONAL UNITS TABLET PO SCH (17:39)
--- NOTE | 2016-11-11 18:19 | IPN ---
DATE: 11/11/2016 Mr. Cordova is seen this morning on his bedside. He is feeling well and denies any complaints at the time of my visit. His blood pressure has been below 100 mmHg systolic. The patient denies any nausea, vomiting, dyspnea or chest pain. He is receiving peritoneal dialysis five exchanges per day. PHYSICAL EXAMINATION: Temperature 97.0 degrees Fahrenheit, heart rate 109 per minute and respiratory rate 18 per minute. Blood pressure 87/52 mmHg and oxygen saturation 96% on room air. Head is atraumatic. Neck is supple and without jugular venous distension (JVD) or thyroid enlargement. Ears, nose and throat are unremarkable. Heart sounds are irregular and lungs clear to auscultation. Abdomen soft and nontender. Peritoneal dialysis catheter is intact. Extremities have no cyanosis or clubbing. Skin has no rash or ulcers. Neurologically, he is awake, alert and oriented times three. Today's labs show white blood cell (WBC) count 5.6, hemoglobin 10.4 and hematocrit 32.2. Sodium 133 and potassium 3.7. BUN 96 and creatinine 8.84. Calcium 7.9 and phosphorus 5.8. PROBLEMS: 1. End-stage renal disease. The patient continues with peritoneal dialysis five times per day. We are using 1.5% solution for all exchanges. 2. Hyponatremia. This is mild and stable. No intervention is indicated at this point. 3. Hypokalemia. Slight improvement in potassium level noted. The patient has been placed on potassium chloride 20 mEq daily and electrolytes will be checked again tomorrow morning. 4. Hypotension. This is a chronic issue which is slightly worse now due to the use of amiodarone and low-dose beta lico. The patient is receiving only 1.5% dialysis solution and volume status is well-compensated. We can give him a cup of broth and change his diet to regular in order to improve his blood pressure. His Flomax has already been stopped. I would defer to cardiology to consider stopping beta lico and continue with amiodarone alone for rate control. 5. Anemia. Anemia is stable and we will continue to monitor closely. We will give him a dose of Aranesp if he has any further drop in his hemoglobin level.
[2016-11-11 20:00] VITALS: BP 96/67
[2016-11-12] VITALS: BP 90/52
[2016-11-12 04:00] VITALS: BP 88/56
[2016-11-12] MEDS: SLF 3 ML SYR IV SCH ×3 (05:32→20:39)
[2016-11-12 05:44] LABS: MEAN CORPUSCULAR HEMOGLOBIN 30.6 pg (27.0-33.0); MEAN CORPUSCULAR HGB CONC 32.3 g/dl (32.0-36.5); RED CELL DISTRIBUTION WIDTH 14.4 % (11.5-14.5); WHITE BLOOD COUNT 6.1 K/mm3 (4.0-10.0)
[2016-11-12 05:50] LABS: INR 2.21
[2016-11-12 05:58] LABS: CALCIUM LEVEL 8.1 MG/DL (8.8-10.2); CREATININE FOR GFR 9.12 MG/DL (0.70-1.30); PHOSPHORUS LEVEL 5.4 MG/DL (2.5-4.9); POTASSIUM SERUM 3.7 MEQ/L (3.5-5.1)
[2016-11-12] MEDS: LANTHANUM CARBONATE 500 MG CHEW TABLET PO SCH ×3 (07:30→17:10)
[2016-11-12 08:00] VITALS: BP 91/64
[2016-11-12] MEDS: BISACODYL 5 MG TAB PO SCH ×2 (09:00→20:41)
[2016-11-12] MEDS: MAGNESIUM OXIDE 400 MG TAB (MAG-OX) PO SCH (09:00)
[2016-11-12] MEDS: DOCUSATE SODIUM 100 MG CAP PO SCH ×2 (09:08→20:38)
[2016-11-12] MEDS: ASPIRIN 81 MG CHEW TABLET PO SCH (09:08)
[2016-11-12] MEDS: CARVedilol 3.125 MG TAB PO SCH ×2 (09:08→20:38)
[2016-11-12] MEDS: MULTIVITAMINS/MINERALS THERAP 1 TAB PO SCH (09:08)
[2016-11-12] MEDS: CALCITRIOL 0.25 MCG CAP (S0169) PO SCH (09:08)
[2016-11-12] MEDS: ISONIAZID 300 MG TAB PO SCH (09:08)
[2016-11-12] MEDS: POTASSIUM CHLORIDE 10 MEQ SR TABLET PO SCH (09:09)
[2016-11-12] MEDS: AMIODARONE 200 MG TAB (PACERONE) PO SCH ×4 (09:09→20:37)
[2016-11-12 12:00] VITALS: BP 96/65
--- NOTE | 2016-11-12 13:55 | IPN ---
DATE: 11/12/2016 Mr. Cordova is seen this morning on his bedside. He is feeling well and denies any dyspnea, chest pain, nausea, vomiting or dizziness. He reports that he did not feel dizzy yesterday when his blood pressure was low. PHYSICAL EXAMINATION Temperature 98 degrees Fahrenheit, heart rate 70 per minute and respiratory rate 18 per minute. Blood pressure 91/64 mmHg and oxygen saturation 95% on room air. Head is atraumatic. Ears, nose and throat are unremarkable. Neck is supple and without jugular venous distention (JVD) or thyroid enlargement. Heart sounds are irregular rhythm. Lungs are clear to auscultation. Abdomen is soft and distended with peritoneal dialysis solution. There is no palpable organomegaly. Bowel sounds are normal. Extremities have no cyanosis or clubbing. Skin has no rash or ulcers. Neurologically, he is awake, alert, oriented times three. Today's labs show WBC count 6.1, hemoglobin 10.2 with hematocrit 31.6. Platelets 136. Sodium 133 and potassium 3.7. BUN 19 and creatinine 9.12. Magnesium level is 2.5. PROBLEMS: 1. End-stage renal disease. The patient has been on peritoneal dialysis, and we will continue with current prescription of five exchanges per day. 2. Hyponatremia. This is mild and stable and does not need any intervention. 3. Hypokalemia, potassium level is stable and the patient will continue with potassium chloride 20 mEq daily, which was started just yesterday. 4. Hypermagnesemia. The patient has been receiving magnesium supplement, which is now being stopped today as his magnesium level was 2.5 yesterday. 5. Hypotension. This is a chronic issue, which is made worse with low-dose of beta lico. His volume status is well-compensated. He has been switched to regular sodium diet and I have already stopped his Flomax. In case of any symptoms. We can consider adding low-dose midodrine. 6. Ventricular tachycardia. He is doing well now with amiodarone and low-dose beta lico. 7. Anemia. His anemia is slightly worse. I will give him one dose of Aranesp 100 mcg tomorrow morning.
[2016-11-12 16:00] VITALS: BP 109/67
[2016-11-12] MEDS: VITAMIN D 1,000 INTERNATIONAL UNITS TABLET PO SCH (17:10)
[2016-11-12 20:00] VITALS: BP 107/65
--- NOTE | 2016-11-12 20:43 | IPN ---
CARDIOLOGY PROGRESS NOTE: 11/12/2016 SUBJECTIVE: Today, the patient feels much improved. He has been able to walk in the [place] without shortness of breath and renewed energy. Has remained free of chest discomfort. Remains unaware of his heart action. No dizziness. Continues to tolerate his amiodarone without apparent adverse effect. OBJECTIVE: Pleasant elderly male of medium body build laying comfortably flat. Heart rate currently 70 beats per minute and regular, blood pressure 108/50 supine. Respiratory rate 18 per minute, O2 saturation 94% on room air. Afebrile. His weight is currently stable. Normal oral moisture. Trachea midline. Neck veins appear to be at the level of sternal angle, supine. Normal chest configuration and chest expansion. Remains free of dependent edema. 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 Has virtually no premature ventricular contractions (PVCs) at this time. LABORATORY DATA: Hemoglobin stable at 10.2. Normal white blood cell count and platelet count. PT/INR today off Coumadin since his admission is still in a therapeutic range and INR measuring 2.2. Electrolytes are in balance with a BUN currently 90, creatinine 9.1, fasting glucose was normal at 90. Serum calcium 8.1, with phosphorus at 5.4, albumin 2.0. IMPRESSION/PLAN: 1. Recurrent nonsustained ventricular tachycardia: At this point, following amiodarone loading, he is completely free of ventricular arrhythmia. This has had an obvious positive hemodynamic effect as mentioned above. We will plan on continuing his amiodarone for an additional 24 hours at 2 mg four times a day and plan on tentative discharge tomorrow with reduction of the dose to 2 mg three times a day for 2 weeks and then 200 mg twice a day for 1 month prior to considering one a tablet daily. 2. Paroxysmal atrial fibrillation: Happily with his amiodarone he is also converted from his atrial fibrillation to a sinus mechanism/atrially paced rhythm. His PT/INR remains in a therapeutic range having been off Coumadin for 3 days. Continues on low-dose carvedilol and aspirin. I did a fairly extensive online search regarding anticoagulation in patients on dialysis and interestingly studies to date have actually suggested no benefit of oral anticoagulation with respect to reduction in stroke risk in patients on hemodialysis or peritoneal dialysis. Eliquis oral anticoagulation has been used with the lower risk of bleeding than warfarin, but again no significant reduction in stroke risk in this population. At this point, my plan is to continue with aspirin antiplatelet therapy alone. His warfarin will not be resumed. We are hoping that amiodarone will preserve his organized atrial contraction and reduce his risk of stroke anyway. 3. AV block/dual-chamber pacemaker in situ: With his zoroastrian of sinus mechanism, we were able to perform a complete pacemaker testing and show that his intracardiac electrograms both of the atrium and ventricles are excellent at 4.4 mv and greater than 12 mv respectively. His pacing thresholds are also exceptionally low to 0.625 volts/0.4 ms in the atrium and 0.875 volts in the ventricle and 0.4 ms. Today, I activated his atrial fibrillation suppression program and I have also programmed on his auto intrinsic search hoping to favor spontaneous AV conduction. Continues to have ample battery voltage with estimated battery longevity of 5 years. 4. 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 I am very pleased with his freedom from symptomatic myocardial ischemia. A followup EKG will be obtained tomorrow morning. Will remain on low-dose carvedilol and aspirin. 5. Hypertensive heart disease with heart failure (systolic and diastolic dysfunction): Remains compensated on peritoneal dialysis. Blood pressure today off his Flomax and with zoroastrian of his normal rhythm has substantially improved from yesterday. I intend to discharge him tomorrow morning if he remains stable and we will arrange for an office followup appointment with EKG in approximately 2 weeks.
[2016-11-13] VITALS: BP 110/61
[2016-11-13 04:00] VITALS: BP 84/54
[2016-11-13] MEDS: SLF 3 ML SYR IV SCH (05:02)
[2016-11-13 05:54] LABS: ALBUMIN 2.1 GM/DL (3.2-5.2); ALBUMIN/GLOBULIN RATIO 0.49 (1.00-1.93); BILIRUBIN,TOTAL 0.5 MG/DL (0.2-1.0); CREATININE FOR GFR 9.26 MG/DL (0.70-1.30); GLOMERULAR FILTRATION RATE 5.9 (>42); POTASSIUM SERUM 4.3 MEQ/L (3.5-5.1); TOTAL PROTEIN 6.4 GM/DL (6.4-8.2)
[2016-11-13 07:20] VITALS: BP 90/57
[2016-11-13] MEDS: CALCITRIOL 0.25 MCG CAP (S0169) PO SCH (08:31)
[2016-11-13] MEDS: DOCUSATE SODIUM 100 MG CAP PO SCH (08:31)
[2016-11-13] MEDS: ASPIRIN 81 MG CHEW TABLET PO SCH (08:31)
[2016-11-13] MEDS: AMIODARONE 200 MG TAB (PACERONE) PO SCH ×2 (08:31→11:22)
[2016-11-13] MEDS: BISACODYL 5 MG TAB PO SCH (08:31)
[2016-11-13] MEDS: MULTIVITAMINS/MINERALS THERAP 1 TAB PO SCH (08:31)
[2016-11-13] MEDS: POTASSIUM CHLORIDE 10 MEQ SR TABLET PO SCH (08:31)
[2016-11-13] MEDS: FEBUXOSTAT 40 MG TABLET (ULORIC) PO SCH (08:32)
[2016-11-13] MEDS ORDERED: AMIO200T37 PO (08:54)
[2016-11-13 09:00] VITALS: BP 90/57
[2016-11-13] MEDS ORDERED: DARBEPOETIN 100 MCG/0.5 ML *NON-DIALYSIS* SYRINGE (J0881) SC SCH (09:00)
[2016-11-13] MEDS: CARVedilol 3.125 MG TAB PO SCH (09:00)
[2016-11-13] MEDS: LANTHANUM CARBONATE 500 MG CHEW TABLET PO SCH (09:02)
[2016-11-13] MEDS: ISONIAZID 300 MG TAB PO SCH (09:03)
--- NOTE | 2016-11-13 09:09 | REP ---
Chest x-ray: Two views. History: Followup atelectasis. Comparison chest x-ray November 09, 2016. Findings: There are mild fibrotic and interstitial markings in the bases bilaterally. These are slightly more prominent but not new when compared with the March 28, 2015 prior study. No acute infiltrate is appreciated. Pacemaker is noted in the right heart as before. The heart is at the upper range of normal in size. No free pleural effusion seen. No diffuse pulmonary edema noted. The aorta is calcific and tortuous. EKG electrodes are seen. 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 Pacemaker noted in borderline heart. Signed by Conrad Salter MD 11/13/2016 09:37 A
--- NOTE | 2016-11-13 09:14 | DSES ---
DATE OF ADMISSION: 11/09/2016 DATE OF DISCHARGE: ATTENDING PHYSICIAN: Dr. Chung Olivares CLINICAL SUMMARY: This 76-year-old retired resident of [place] is well-known to us with ischemic, hypertensive and valvular heart disease complicated by abnormal EKG, tachybrady syndrome/paroxysmal atrial fibrillation with dual-chamber pacemaker in situ. In the past 6 months, he has had considerable ventricular ectopy, which we believe this provoked left ventricular dysfunction recently documented on noninvasive testing. He presented for a followup appointment in my office on 11/09/2016 and despite the lack of palpitations or dizziness, was found to have a recurrent long runs of nonsustained ventricular tachycardia at 157 beats per minute. He was transferred to [facility] by ambulance. INVESTIGATIONS/COURSE IN HOSPITAL: He was admitted to a telemetry unit and following a baseline investigations, was started on amiodarone antiarrhythmic therapy at 200 mg four times a day. In light of the interaction between amiodarone and warfarin, we have discontinued his anticoagulation. Other medications continued the same. Dr. Han was consulted to help manage his peritoneal dialysis. Admission chest x-ray showed cardiomegaly with permanent pacemaker in stable position. No pulmonary venous congestion, chronic mild right hemidiaphragm elevation with chronic bibasilar fibroatelectatic changes. There was also the ill-defined parenchymal opacity, suspected to be an area of atelectasis. His EKG showed underlying atrial fibrillation, which is new from our last tracing April 2016 and recurrent nonsustained runs of ventricular tachycardia as mentioned above. His complete blood count shows stable normocytic normochromic anemia of 11.9. Normal white blood cell count, slightly low platelet count. His PT/INR on admission was 28.7/2.7. Electrolytes were in balance with slightly elevated serum magnesium of 2.5 on supplemental therapy. Serial Troponin I levels were all in indeterminate range of 0.27. Admission BUN 117, creatinine 8.4, random glucose 109. Liver function studies were normal except for lactate dehydrogenase, which was mildly elevated. His total CK was elevated 406, but serum albumin was low at 2.2. TSH was normal at 2.6, total cholesterol 109, triglyceride 101. His hemoglobin remained essentially stable having stopped his oral anticoagulation. Interestingly, 3 days after following stopping his oral anticoagulation, his PT/INR was still elevated at 2.2. Chemistries today at the time of his discharge again shows electrolyte balance. Magnesium is not measured. BUN 81, creatinine 9.3, fasting glucose 93. In light of relative hypotension, his Flomax was discontinued and adjustments were made to his peritoneal dialysis. However, today his blood pressure remains soft at 90/50 so I plan to discontinue his carvedilol as well. With his amiodarone loading therapy, his ventricular ectopy completely resolved and his atrial fibrillation converted to a consistent atrially paced rhythm. Complete pacemaker interrogation was performed showing excellent intracardiac electrograms and pacing thresholds. His slow rate is set at 70, we have activated the atrial fibrillation suppression mode. I have also programmed the auto intrinsic surge hoping to preserve spontaneous AV conduction with a narrower QRS complexes, likely to be associated with more effective left ventricular performance. In order to facilitate this and improve his blood pressure, his carvedilol therapy has been discontinued. At this point, he has been ambulating on the vera without problems and feels much more energetic at this point compared to his admission. FINAL DIAGNOSIS 1. Recurrent nonsustained ventricular tachycardia -- now resolved on amiodarone therapy. 2. Paroxysmal atrial fibrillation - converted with amiodarone therapy. As the literature currently suggests no benefit from oral anticoagulation in reducing stroke risk in patients is on dialysis, anticoagulation will not be administered. 3. Tachybrady syndrome/dual-chamber pacemaker in situ: His pacemaker is functioning appropriately with modifications to the program as mentioned above. In order to facilitate spontaneous AV conduction, his carvedilol has been discontinued at this time. 4. 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 Not a candidate for ANNETTE inhibition, intolerant of statin therapy, and now his carvedilol beta-lico has been discontinued because of relative hypotension and his AV conduction problems. Remains on aspirin alone. 5. Hypertensive heart disease (benign with heart failure)/heart failure (systolic and diastolic dysfunction/chronic) - fluid status managed well with peritoneal dialysis. Soft blood pressure as mentioned. Electrolytes currently remain in balance. DISCHARGE MEDICATIONS AND RECOMMENDATIONS: He will remain on his current modest salt and fluid intake restriction. Activity can be as tolerated. He will continue his peritoneal dialysis as directed by Dr. Han, nephrology. We will plan on seeing him in followup in our office in approximately 2 weeks' time. Current medications will include: - amiodarone 200 mg three times a day for the next 2 weeks, then 200 mg twice a day for 1 month then ultimately 200 mg daily. He is no longer on oral anticoagulation. He will be taking aspirin 81 mg daily. Other medications include: - isoniazid 300 mg daily - Uloric 40 mg three times a week by mouth - Fosrenol 1 gram by mouth three times a day - Renovite one tablet daily - calciferol 0.25 mcg daily - vitamin D3 1000 units daily - LiquaCel 1 ounce daily - Senexon-S 8.6/50 one tablet twice a day Should he notice any problems with dizziness, increasing shortness of breath, or chest pain, he has been encouraged contact our office promptly.
--- NOTE | 2016-11-13 17:27 | IPN ---
DATE: 11/13/2016 SUBJECTIVE: Mr. Cordova is seen this morning on his bedside. He is feeling well and denies any nausea, vomiting, dyspnea, chest pain, dizziness or lightheadedness. His peritoneal dialysis has been functioning well. He was initially admitted with ventricular tachycardia and over last couple of days, he has been without any arrhythmias. Dr. Olivares called me this morning and he has already stopped his Coumadin. The patient is also now going to be off Carvedilol and he remains on amiodarone alone. His blood pressure has been running on the low side and his Flomax was stopped a few days ago. He has been receiving peritoneal dialysis which is functioning very well. PHYSICAL EXAMINATION: VITAL SIGNS: Temperature 98 degrees Fahrenheit, heart rate 70 per minute, respiratory rate 20 per minute. Blood pressure 90/57 mmHg and oxygen saturation 96% on room air. HEENT: His head is atraumatic. Ears, nose and throat are unremarkable. NECK: Supple and without jugular venous distention (JVD) or thyroid enlargement. CARDIOVASCULAR: Heart sounds are regular now. LUNGS: With slightly diminished breath sounds at bases. ABDOMEN: Soft and nontender and bowel sounds are normal. Peritoneal dialysis catheter is intact. He does have peritoneal fluid in the form of ascites. EXTREMITIES: Have no cyanosis or clubbing. SKIN: Has no rash or ulcers. NEUROLOGIC: He is awake, alert and oriented times three. LABORATORY DATA: Today's labs show WBC count 6.1, hemoglobin 10.2 and hematocrit 31.6. Sodium 134 and potassium 4.3. BUN 81 and creatinine 9.26. Calcium level 8.0. Total protein 6.4 and albumin 2.1. PROBLEMS: 1. End-stage renal disease. The patient continues with peritoneal dialysis. He will return to his home dialysis prescription after discharge today. At present, his volume status is well-compensated and he will continue with 1.5% solution due to chronic hypotension. 2. Hypokalemia. Potassium level has improved and the patient will continue with potassium supplement of 20 mEq every day. His electrolytes will be rechecked next week. 3. Hyponatremia. This is very mild and slightly improved since yesterday. No intervention is indicated. 4. Anemia. His anemia slightly worsened over last few days. The patient will be given Aranesp 100 mcg one dose today. We will monitor him as outpatient. 5. Hypotension. This a chronic issue and all antihypertensives have already been stopped. He remains on amiodarone alone. The patient is asymptomatic so does not need any further intervention. DISPOSITION The patient is being discharged by cardiology. He will be followed up in dialysis clinic next week.
--- NOTE | 2016-11-14 10:41 | ECGEPIP ---
Stationary ECG Study 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
== END 2016-11-13 11:36 | disposition home or self-care (01) | DRG 308 ==
LOC: M PCU 10:00
PROVIDERS: ADMIT Internal Medicine Cardiovascular Disease; ATTEND Internal Medicine Cardiovascular Disease
DX: I47.2 Ventricular tachycardia (principal); N18.6 End stage renal disease; E87.1 Hypo-osmolality and hyponatremia; I13.2 Hypertensive heart and chronic kidney disease with heart failure and with stage 5 chronic kidney disease, or end stage renal disease; I50.42 Chronic combined systolic (congestive) and diastolic (congestive) heart failure; Q61.3 Polycystic kidney, unspecified; N25.81 Secondary hyperparathyroidism of renal origin; I48.0 Paroxysmal atrial fibrillation; Z95.0 Presence of cardiac pacemaker; Z79.899 Other long term (current) drug therapy; I35.0 Nonrheumatic aortic (valve) stenosis; I71.2 Thoracic aortic aneurysm, without rupture; D63.1 Anemia in chronic kidney disease; I25.5 Ischemic cardiomyopathy; J44.9 Chronic obstructive pulmonary disease, unspecified; N40.0 Benign prostatic hyperplasia without lower urinary tract symptoms; E83.39 Other disorders of phosphorus metabolism; E87.6 Hypokalemia; I95.9 Hypotension, unspecified

== ENCOUNTER → 2017-04-24 | Outpatient (CLI) | payer MEDICARE ==
[~2017-04-24] MED LIST changes: +AMIO200T PO; +AMIO200T37 PO; +CALC1CAP31 PO; +FLOM5CAP PO; +ISON300T4 PO; +LEVA1TAB PO; -LEVA250T PO; +MAG400TA PO; +VITA100066 PO; +WARF-58 PO
--- NOTE | 2017-04-27 11:11 | SLEEPCENT ---
DATE OF PROCEDURE: 04/24/2017 ORDERED BY: MIGDALIA Stack Nocturnal polysomnography was performed for assessment of sleep physiology in this patient with a history of excessive somnolence and nonrestorative sleep and extensive comorbidities. 4 hours and 16 minutes of data were reviewed. There were 133 minutes of sleep identified. Sleep latency was short at 3.5 minutes. Rapid eye movement (REM) was mildly prolonged at 152 minutes. Sleep architecture showed severe fragmentation. Overall sleep efficiency was 53.2%. The electrocardiogram showed what appeared to be atrial fibrillation with small complexes. In other portions of the records there was a bigeminal rhythm. Average heart rate 72 beats per minute. EEG showed fairly normal waveforms for awake and sleep stages. There were 111 respiratory events identified of 10 seconds in duration or greater for an apnea hypopnea index of 49.9. The events were primarily obstructive, not exclusive to sleep stage nor body posture. They were associated with oxygen desaturations into the 80s. There was some activity in the limb leads. Limb movement arousal index was 4.9. At 1230 hours, the watch repair technician was summoned to the room as the patient was experiencing abdominal pain. His was quite persistent and testing was stopped at this point and he was taken to the emergency department for further evaluation. IMPRESSION: Severe obstructive sleep apnea syndrome (G47.33). Apnea hypopnea index 49.9. RECOMMENDATION: The patient should be encouraged to return to the sleep disorder center for pressure therapy. In the interim, alcohol and sedative avoidance should be practiced and caution exercised during the operation of motor vehicles.
== END ==
LOC: M SLEEP 20:00
PROVIDERS: ATTEND Nurse Practitioner Adult Health
DX: G47.33 Obstructive sleep apnea (adult) (pediatric) (principal)

== ENCOUNTER 2017-04-25 01:46 | Inpatient (IN) | payer MEDICARE ==
[~2017-04-25] VITALS: Ht 182.9 cm; Wt 86.2 kg
[~2017-04-25 01:46] MED LIST changes: -AMIO200T PO; -MAG400TA PO
[2017-04-25] MEDS ORDERED: FLOM5CAP PO (02:06)
[2017-04-25] MEDS ORDERED: METOCLOPRAMIDE INJ 10MG/2ML VIAL (J2765) IV ONE (03:30)
[2017-04-25 03:38] LABS: BASO % 0.1 % (0.0-1.0); EOS # 0.1 10^3/uL (0.0-0.50); EOS % 0.5 % (0.0-3.0); IMMATURE GRANULOCYTE % 0.3 % (0-0); LYMPH # 1.4 10^3/uL (1.5-4.5); LYMPH % 9.6 % (24.0-44.0); MEAN CORPUSCULAR HEMOGLOBIN 31.7 pg (27.0-33.0); MEAN CORPUSCULAR HGB CONC 31.8 g/dl (32.0-36.5); MEAN CORPUSCULAR VOLUME 99.4 fl (80.0-96.0); MONO # 0.6 10^3/uL (0.0-0.8); MONO % 3.7 % (0.0-5.0); NEUTROPHILS # 12.7 10^3/uL (1.8-7.7); NEUTROPHILS % 85.8 % (36.0-66.0); PLATELET COUNT, AUTOMATED 186 10^3/uL (150-450); RED CELL DISTRIBUTION WIDTH 14.5 % (11.5-14.5); WHITE BLOOD COUNT 14.8 10^3/uL (4.0-10.0)
[2017-04-25 03:48] LABS: ALKALINE PHOSPHATASE 69 U/L (45-117); ALT/SGPT 16 U/L (12-78); ANION GAP 12 MEQ/L (8-16); AST/SGOT 32 U/L (7-37); BLOOD UREA NITROGEN 97 MG/DL (7-18); CALCIUM LEVEL 8.8 MG/DL (8.8-10.2); CARBON DIOXIDE LEVEL 29 MEQ/L (21-32); CHLORIDE LEVEL 96 MEQ/L (98-107); CREATININE FOR GFR 8.97 MG/DL (0.70-1.30); GLOMERULAR FILTRATION RATE 6.1 (>42); GLUCOSE, FASTING 175 MG/DL (83-110); POTASSIUM SERUM 3.3 MEQ/L (3.5-5.1); SODIUM LEVEL 137 MEQ/L (136-145)
[2017-04-25 03:49] LABS: ALBUMIN 2.4 GM/DL (3.2-5.2); ALBUMIN/GLOBULIN RATIO 0.56 (1.00-1.93); BILIRUBIN,DIRECT < 0.1 MG/DL (0.0-0.2); BILIRUBIN,TOTAL 0.3 MG/DL (0.2-1.0); TOTAL PROTEIN 6.7 GM/DL (6.4-8.2)
[2017-04-25] MEDS: MORPHINE 4 MG/ML 1ML SYRINGE IV PRN ×2 (04:06→05:40)
--- NOTE | 2017-04-25 04:10 | REPUSA ---
CLINICAL HISTORY: Abdominal pain. TECHNIQUE: Multiple axial, sagittal and coronal CT images were obtained through the abdomen and pelvi s without administration of oral or IV contrast material. COMMENTS: Comparison to prior exam on 03/24/2015. There is bilateral peribronchial interstitial thickening suggestive of bronchitis. Bilateral basilar interstitial by pleural thickening. Interval appearance of bilateral groundglass densities in the bases. Liver cirrhosis. Unchanged multiple hepatic cysts. Polycystic kidney disease. Unchanged. Enlarged kidneys with a large number of bilateral renal cysts. Prior cholecystectomy. Interval appearance of small amount of free fluid in the abdomen and pelvis. Peritoneal dialysis catheter is again noted. Multifocal thickening of the cord more prominent at the level of the transverse colon. Not present on prior exam. Unchanged prostatomegaly. Unchanged diffuse thickening of the wall of the bladder. Unchanged bilateral fat containing inguinal hernias. There is no intra or extrahepatic biliary ductal dilatation. The spleen is normal. The pancreas is of normal contour and attenuation characteristics. There is no evidence of adrenal mass. No renal or ureteral calculi are identified. There is no hydroureter or hydronephrosis. There is no evidence for appendicitis. There is no bowel wall thickening. No evidence for small or la rge bowel obstruction. There is no evidence of intrinsic or extrinsic bladder mass. Images of the lung bases show no evidence of pleural or parenchymal mass. There are no pleural effusi ons. The bony structures are free of lytic or blastic lesions. Multilevel degenerative changes are seen in volving the thoracolumbar spine. Scattered calcifications are seen involving the aorta and major branches compatible with atherosclero sis. IMPRESSION: Comparison to prior exam on 03/24/2015. Chronic bronchitis. Bilateral basilar interstitial by pleural thickening. Interval appearance of bilateral groundglass densities in the bases. Liver cirrhosis. Unchanged multiple hepatic cysts. Polycystic disease. Polycystic kidney disease. Unchanged. Enlarged kidneys with a large number of bilateral renal cysts. Prior cholecystectomy. Interval appearance of small amount of free fluid in the abdomen and pelvis. Peritoneal dialysis catheter is again noted. Multifocal thickening of the cord more prominent at the level of the transverse colon. Not present on prior exam. Unchanged prostatomegaly. Unchanged diffuse thickening of the wall of the bladder. Unchanged bilateral fat containing inguinal hernias. Thank you for your kind referral of this patient.
[2017-04-25 04:39] LABS: INR 1.01
[2017-04-25] MEDS ORDERED: ACETAMINOPHEN TAB 650MG DOSE (2X325MG) PO PRN (05:00)
[2017-04-25 05:02] LABS: BF MONONUCLEAR CELL % 5.5 % (0-0); BF POLYMORPHONUCLEAR CELL % 94.5 % (0-0); RBC BODY FLUID < 2 10^3/uL (<2); WBC BODY FLUID 9523 /uL (0-10)
[2017-04-25] MEDS ORDERED: RENATAB5 PO (05:02)
[2017-04-25] MEDS ORDERED: ISON300T4 PO (05:02)
[2017-04-25] MEDS ORDERED: AMIO200T PO (05:02)
[2017-04-25] MEDS ORDERED: MAG400TA PO (05:02)
[2017-04-25 05:06] LABS: BF DIFF IF INDICATED? YES (NO)
[2017-04-25] MEDS ORDERED: MEROPENEM INJ 1 GM in APPROPRIATE DILUENT 1 EA IV SCH ×6 (06:00)
[2017-04-25 06:21] VITALS: BP 125/61
[2017-04-25] MEDS ORDERED: VANCOMYCIN HCL 1,000 MG, VIAL MATE ADAPTER 1 EACH in D5W 250 ML IV ONE (08:30)
[2017-04-25] MEDS ORDERED: DILUENT IV SCH (09:00)
[2017-04-25] MEDS ORDERED: CEFOTAXIME SOD IV SCH (09:00)
[2017-04-25] MEDS: LANTHANUM CARBONATE 500 MG CHEW TABLET PO SCH ×3 (10:22→18:32)
[2017-04-25] MEDS: MORPHINE 2 MG/ML 1ML SYRINGE IV SCH ×2 (10:26→16:57)
[2017-04-25] MEDS: SENOKOT S TAB PO SCH ×2 (10:26→21:59)
[2017-04-25] MEDS: CALCITRIOL 0.25 MCG CAP (S0169) PO SCH (10:26)
[2017-04-25] MEDS: PANTOPRAZOLE 40MG TAB (PROTONIX) PO SCH (10:26)
[2017-04-25] MEDS: ASPIRIN 81 MG ENTERIC TAB PO SCH (10:26)
[2017-04-25] MEDS: AMIODARONE 200 MG TAB (PACERONE) PO SCH ×2 (10:27→21:59)
[2017-04-25] MEDS: ISONIAZID 300 MG TAB PO SCH (10:27)
[2017-04-25] MEDS ORDERED: GENTAMICIN SULF INJ 80MG/2ML VIAL (J1580) IP ONE (10:45)
[2017-04-25] MEDS ORDERED: VANCOMYCIN INTERMITTENT/PULSE DOSING BY CLINICAL PHARMACIST PER DOSING PROTOCOL XX SCH (11:15)
[2017-04-25] MEDS: POTASSIUM CHLORIDE 10 MEQ SR TABLET PO SCH (12:32)
--- NOTE | 2017-04-25 12:45 | HPE ---
DATE OF ADMISSION: 04/25/2017 The patient, Regine Cordova, is a 77-year-old male. The patient comes for chief complaint of sudden abdominal pain. HISTORY OF PRESENT ILLNESS: The patient was at a sleep study in our facility when he woke up suddenly in the middle of the night with screaming of abdominal pain. Onset was sudden with no apparent reason. The patient came down to the emergency department for evaluation. The patient stated that he believes that he is having bacterial peritonitis, although he has never had it before. In discussion with his gas generator operator, they told him that when he would get bacterial peritonitis that this is the way that it would present itself. The patient is obviously at risk at bacterial peritonitis, as the patient undergoes peritoneal dialysis. The patient is here in the emergency department. He noted that his family is not yet aware of his presence in the emergency department. The patient notes that his pain is diffuse. He ranks it as "very bad." He notes that he has not been feeling any better. The patient notes that the pain is present when he tries to move. The patient has a previous medical history of coronary artery disease, myocardial infarction with a dual chamber pacemaker. The patient also is a former smoker, quit in 2007, has 75 pack years. Patient with hypertension and hyperlipidemia. Patient also, as noted, gets hemodialysis with peritoneal dialysis. History of peptic ulcer disease. Surgical history is appendectomy, inguinal and umbilical hernias. Positive medical history with a history of polycystic kidney disease, chronic obstructive pulmonary disease (COPD), vascular disease. Patient with allergies to atorvastatin. The patient denies significant family history. We will review earlier documentation to see if any other findings are present. The patient's home medications include: - amiodarone - aspirin - calcitriol - cholecalciferol - Uloric - phosphoenol - cinoxacin - tamsulosin REVIEW OF SYSTEMS: Patient without any other acute complaints aside from the sudden onset of abdominal pain. PHYSICAL EXAMINATION: The patient is resting comfortably when I came in. Last vitals on telemetry show within normal limits on multiple checks. As documented, blood pressure 103/51, pulse oximetry 95% on room air, temperature 97.9, pulse rate is 77. The patient is alert and oriented times three. Normal affect. Normal mood. Patient unable to move without extreme pain. Patient is having difficulty sitting up for appropriate pulmonary examination; however, rolling on the side hurts more so pulmonary examination on the peripheral lung iraheta on both the left and the right show good air movement; however, cannot ascertain full lung field examination. Patient without any shortness of breath and in extreme discomfort. Do not believe it necessary at this time to do a full lung field examination. Abdomen is exquisitely tender to even the lightest palpation in all quadrants of the abdomen. Patient is able to move both right and left leg with good strength. Patient with good range of motion on his right and left arm. Patient with obvious AV graft on his right arm, not clotted. The patient's abdomen shows where there is peritoneal dialysis it is distended. The port appears clean. There is however a small red eschar at the entrance to the port. LABORATORY EXAM: WBC is 14.8, RBC 3.38, hemoglobin and hematocrit is 10.7/33.6, platelet count is 186. Chemistry shows sodium 137, potassium 3.3, chloride 96, carbon dioxide 29, BUN and creatinine 9.7/8.97, fasting glucose 175. Liver enzymes within normal limits. PT 13.5, INR 1.02, PTT 28.2. Other body sources: Abdominal fluid pending. IMAGING: Abdominal and pelvic CT impression: Comparison from prior examination on 03/24/2017, chronic bronchitis, bilateral basilar interstitial and pleural thickening, interval appearance of bilateral ground glass densities at the base, liver cirrhosis, unchanged multiple hepatic cysts, polycystic disease, polycystic kidney disease, unchanged enlarged kidneys from large number of bilateral renal cysts, prior cholecystectomy. Interval appearance, a small amount of free fluid in the abdomen and pelvis. Peritoneal dialysis catheter is again noted. Multifocal thickening of the cord, prominent level of transverse colon, not present on prior examination. Unchanged prostatomegaly. Unchanged diffuse thickening of the wall of the bladder. Unchanged bilateral fat containing inguinal hernias. Thank you for your kind referral of the patient. ASSESSMENT AND PLAN: The patient is a 77-year-old male who comes in with sudden onset of abdominal pain. We are admitting under the strong impression that the patient may be having early onset of sudden bacterial peritonitis. Sending abdominal fluid for analysis. Initial plan is to start cefotaxime, replaced with meropenem secondary to restriction of the nature of cefotaxime and lack of large supply at this time. No need for bolus fluid at this time. The patient is hemodialysis patient and the patient is not septic, lactic acid is normal, the patient is not febrile or have tachycardia. For the patient's coronary artery disease, continue home medications as noted. For the patient's chronic kidney disease, continue home medications. For the patient's benign prostatic hypertrophy (BPH), continue home medications. For the patient's chronic constipation, continue home medications. Given the patient's need for IV antibiotics and severe nature of SBP, I believe the patient most likely to be here for greater than two midnights. Deep vein thrombosis (DVT) prophylaxis. The patient will be on intermittent pneumatic compression. There is a strong possibility of the need for intervention and therefore chemical anticoagulation would not be the appropriate step at this time. Consider GI versus surgical consultation in the morning.
[2017-04-25 14:00] VITALS: BP 123/59
[2017-04-25] MEDS: BISACODYL 5 MG TAB PO PRN (17:57)
--- NOTE | 2017-04-25 18:57 | CR ---
DATE OF CONSULTATION: 04/25/2017 REQUESTING PHYSICIAN: Kari Arnold MD CONSULTING PHYSICIAN: Cait Cullen MD REASON FOR CONSULTATION: Management of end-stage renal disease on peritoneal dialysis, and peritonitis. CHIEF COMPLAINT: Patient presented to the hospital yesterday with sudden onset of abdominal pain. HISTORY OF PRESENT ILLNESS: Regine Cordova is a 77-year-old male with a past medical history of polycystic kidney disease, end-stage renal disease on peritoneal dialysis, and multiple other comorbidities as mentioned below. Patient was actually getting a sleep study at [facility] overnight, but he suddenly woke up at night screaming of abdominal pain with associated nausea. There was no vomiting, patient also reported chills. Patient was brought to the emergency room for further workup. Initial peritoneal fluid cell count and culture were sent and patient was started on empiric antibiotics. Today morning, peritoneal fluid cell count came back to be more than 9000. Nephrology service was called for further help in the management of end-stage renal disease, peritoneal dialysis, and acute peritonitis in this patient. Patient reports that about 3-4 days ago, he briefly disconnected, manipulated his arteriovenous (AV) catheter, and reconnected it during the peritoneal process and he thinks that that might have caused peritonitis. Patient reported that ever since he came to the emergency room with the IV antibiotics there is slight improvement in his abdominal pain and his comfort. PAST MEDICAL HISTORY: Patient has a past medical history of polycystic kidney disease, polycystic liver disease, end-stage renal disease, coronary artery disease, and congestive heart failure, along with peptic ulcer disease. PAST SURGICAL HISTORY: Patient has a history of dual chamber pacemaker placement, status post peritoneal dialysis (PD) catheter placement, status post right upper arm AV fistula placement, history of appendectomy in the past, status post inguinal and umbilical hernia repairs. ALLERGIES: Patient is allergic to ATORVASTATIN. FAMILY HISTORY: Patient denies any significant family history of cancers or inherited disorder. SOCIAL HISTORY: Patient lives at home. He denies any illicit drug abuse or alcohol abuse. REVIEW OF SYSTEMS: CONSTITUTIONAL: Patient reported chills when he came to the hospital. He denies any recent weight loss or weight gain. EYES: He denies any blurry vision or double vision. EARS/NOSE/THROAT (ENT): He denies any dysphagia, odynophagia, or ear discharge. CARDIOVASCULAR: He denies any chest pain or palpitations at this time. RESPIRATORY: He denies any shortness of breath or cough. GASTROINTESTINAL (GI): Patient reports a moderate amount of abdominal pain tenderness. GENITOURINARY: He denies any dysuria or hematuria. MUSCULOSKELETAL: He denies any muscle aches and pains. CENTRAL NERVOUS SYSTEM: He denies any history of stroke or seizures. SKIN: He denies any rashes or ulcers. HEMATOLOGICAL/ONCOLOGICAL: Patient denies any easy bleeding or bruising. ENDOCRINE: Patient reports secondary hyperparathyroidism. PSYCHIATRIC: He denies any depression or anxiety. All other review of systems is negative. PHYSICAL EXAMINATION: GENERAL: Patient is awake, alert, oriented times three, laying in bed, mild painful distress. VITAL SIGNS: Temperature is 99 degrees Fahrenheit, blood pressure 123/59, pulse is 70, respiratory rate of 18, saturating 99% on nasal cannula at 3 liters. Intake and output: Urine output recorded so far is 100 mL since overnight. HEAD and NECK EXAM: Extraocular muscles intact. Pupils equally round and reactive to light. Mucous membranes are moist. Neck is supple, there is no jugular venous distention (JVD). CARDIOVASCULAR: S1, S2, irregular rate. No murmur, rub, or gallop. RESPIRATORY: Chest is clear to auscultation bilaterally. Bilateral equal air entry. No rales or rhonchi. ABDOMEN: Soft, mildly distended, diffusely tender all over to deep palpation. There is rebound tenderness as well. Left lower quadrant peritoneal dialysis catheter was observed. There is no bleeding or discharge from the PD access site. MUSCULOSKELETAL: No clubbing or cyanosis. Pulses are 2+. CENTRAL NERVOUS SYSTEM: No focal neurological deficit. Power is 5/5 in all extremities. SKIN: No rashes or ulcers. LYMPH NODES: No significant cervical, axillary, or inguinal lymphadenopathy. PSYCHIATRIC: Normal mood and affect. LABORATORY REVIEW: CBC showed a WBC 14.8, hemoglobin 10.7, platelets 186. INR is 1. Peritoneal fluid was cloudy, WBC count is 9523, and polymorphonuclear cells were 94%. BMP showed sodium 137, potassium 3.3, chloride 96, bicarbonate 29, BUN 97, creatinine is 8.9, lactic acid 1.9, albumin is 2.4. Microbiology: Peritoneal fluid and blood culture are pending at this time. IMAGING: CT scan of the abdomen and pelvis was done overnight that showed liver cirrhosis, multiple hepatic cysts, polycystic kidney disease, status post cholecystectomy, bilateral fat containing inguinal hernias. CURRENT INPATIENT MEDICATIONS: Patient's medications were all reviewed by me. He was on meropenem 1 gram IV every 8 hours, I changed the dose to 1 gram IV daily because of renal failure. He was also given one dose of vancomycin 1 gram IV. He is on amiodarone 200 mg by mouth twice a day, aspirin 81 mg daily, calcitriol 0.25 mcg by mouth daily, Senokot one tablet by mouth twice a day, Uloric 40 mg by mouth Wednesday, Wednesday, Wednesday, isoniazid 300 mg by mouth daily, gentamicin one dose was ordered by me 80 mg intraperitoneal times one dose. He is on lanthanum 1 gram by mouth with meals, magnesium oxide 400 mg by mouth daily, Reglan as needed, morphine 2 mg IV every 4 hours as needed for pain, Protonix 40 mg by mouth daily, he was also given potassium chloride 20 mEq by mouth daily, Flomax 0.4 mg by mouth every evening, and vitamin D 1000 units by mouth daily. ASSESSMENT: 77-year-old male with past medical history of end-stage renal disease on hemodialysis secondary to polycystic kidney disease admitted at this time because of acute peritonitis. PLAN: 1. Acute peritonitis. Patient has more than 9000 white blood cells (WBCs) and 94% of them are polymorphonuclear which is diagnostic of acute peritonitis. The patient has been empirically started on IV meropenem, I have decreased the dose to 1 gram IV daily. I am going to give him a dose of intraperitoneal gentamicin 80 mg today and 40 mg daily. I would have preferred giving intraperitoneal vancomycin, however patient has already received IV vancomycin 1 gram times one dose so I am not going to repeat it at this time. Continue peritoneal fluid cell count daily. Followup the blood cultures and peritoneal cultures. If the cell counts do not drop below 3000 by , then I would add an antifungal as well. Patient admits to using wrong technique about 3-4 days ago, however given the sudden nature of the severe abdominal pain during sleep study, cyst rupture is a possibility as well, however treatment will be the same. 2. End-stage renal disease on peritoneal dialysis. Peritoneal dialysis regimen at home is peritoneal dialysis (PD) cycler. He uses 18 liters of fluid at nighttime and 1500 mL of daytime fill. However, over here he has been started on five exchanges of 2 liters each, all 1.5%. Further change in the regimen will be done as needed. 3. Secondary hyperparathyroidism. Continue current dose of calcitriol 0.25 mcg by mouth daily. 4. 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 Continue current dose of Uloric 40 mg by mouth every Wednesday, Wednesday, Wednesday. 5. Chronic kidney disease-mineral bone disease. Continue current dose lanthanum 1 gram by mouth twice a day with meals for hyperphosphatemia. 6. Hypokalemia. It is secondary to end-stage renal disease and peritoneal dialysis. I have started the patient on low dose of potassium chloride 20 mEq by mouth daily. 7. Anemia in end-stage renal disease. Patient's hemoglobin is 10.7 which is optimal at this time. No need of Aranesp administration at this time. Thank you for involving us in the care of this patient. We shall be happy to follow the patient along with you tomorrow morning.
[2017-04-25] MEDS ORDERED: DOCUSATE SODIUM 100 MG CAP PO SCH (21:00)
--- NOTE | 2017-04-25 21:40 | ECGEPIP ---
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
[2017-04-25 22:00] VITALS: BP 115/61
[2017-04-25] MEDS: VITAMIN D 1,000 INTERNATIONAL UNITS TABLET PO SCH (22:00)
[2017-04-25] MEDS: TAMSULOSIN 0.4 MG CAP PO SCH (22:00)
[2017-04-25] MEDS: MAGNESIUM OXIDE 400 MG TAB (MAG-OX) PO SCH (22:00)
[2017-04-26 06:00] VITALS: BP 102/57
[2017-04-26] MEDS: MEROPENEM INJ 1 GM in APPROPRIATE DILUENT 1 EA IV SCH (06:45)
[2017-04-26 08:29] LABS: RBC BODY FLUID < 2 10^3/uL (<2); WBC BODY FLUID 4586 /uL (0-10)
[2017-04-26] MEDS: LANTHANUM CARBONATE 500 MG CHEW TABLET PO SCH ×3 (08:40→18:18)
[2017-04-26] MEDS: AMIODARONE 200 MG TAB (PACERONE) PO SCH ×2 (08:48→21:21)
[2017-04-26] MEDS: SENOKOT S TAB PO SCH ×2 (08:48→21:21)
[2017-04-26] MEDS: CALCITRIOL 0.25 MCG CAP (S0169) PO SCH (08:48)
[2017-04-26] MEDS: ASPIRIN 81 MG ENTERIC TAB PO SCH (08:49)
[2017-04-26] MEDS: POTASSIUM CHLORIDE 10 MEQ SR TABLET PO SCH (08:49)
[2017-04-26] MEDS: FEBUXOSTAT 40 MG TABLET (ULORIC) PO SCH (08:49)
[2017-04-26] MEDS: PANTOPRAZOLE 40MG TAB (PROTONIX) PO SCH (08:49)
[2017-04-26] MEDS: ISONIAZID 300 MG TAB PO SCH (08:50)
[2017-04-26] MEDS ORDERED: DARBEPOETIN 100 MCG/0.5 ML *NON-DIALYSIS* SYRINGE (J0881) SC SCH (09:00)
[2017-04-26] MEDS ORDERED: GENTAMICIN SULF INJ 80MG/2ML VIAL (J1580) IP SCH (09:00)
[2017-04-26 09:20] LABS: BASO % 0.2 % (0.0-1.0); EOS # 0.1 10^3/uL (0.0-0.50); IMMATURE GRANULOCYTE % 0.4 % (0-0); LYMPH # 0.9 10^3/uL (1.5-4.5); LYMPH % 7.3 % (24.0-44.0); MEAN CORPUSCULAR HEMOGLOBIN 32.1 pg (27.0-33.0); MEAN CORPUSCULAR HGB CONC 32.2 g/dl (32.0-36.5); MEAN CORPUSCULAR VOLUME 99.7 fl (80.0-96.0); MONO % 8.3 % (0.0-5.0); NEUTROPHILS # 9.7 10^3/uL (1.8-7.7); NEUTROPHILS % 82.8 % (36.0-66.0); PLATELET COUNT, AUTOMATED 142 10^3/uL (150-450); RED CELL DISTRIBUTION WIDTH 14.9 % (11.5-14.5); WHITE BLOOD COUNT 11.7 10^3/uL (4.0-10.0)
[2017-04-26 09:23] LABS: ALBUMIN 1.9 GM/DL (3.2-5.2); CALCIUM LEVEL 8.2 MG/DL (8.8-10.2); CREATININE FOR GFR 9.65 MG/DL (0.70-1.30); GLOMERULAR FILTRATION RATE 5.6 (>42); PHOSPHORUS LEVEL 5.3 MG/DL (2.5-4.9); POTASSIUM SERUM 4.2 MEQ/L (3.5-5.1)
--- NOTE | 2017-04-26 09:52 | PHACANCOPD ---
PHARMACY VANCOMYCIN DOSING Pt Demographics Demographics Patient Age:77 , Weight:83.000 , Gender: male Adjusted Body Weight Date: 04/26/17, Adjusted Body Weight: Kg Events Past 24 Hours Events Past 24 Hours: YES: Fever, Elevation in WBC, NO: Dialysis, Diuretic Therapy, Change in CrCl, Pending Diagnostics, Pending Procedures, Other Vancomycin Vancomycin Target Ranges: 15-20 mcg/ml Vancomycin Load Y/N: Yes Load Dose Date Time Vancomycin Load Dose: 1G Date: 04/25 Time: 1030 Vancomycin Dose Date: 04/26/17. Current Vancomycin Dose: [INTERMITTENT] Intermittent Dosing?: Yes Labs Labs Vital Signs Label Value Date Time Patient Temperature 99.5 degrees F 04/25/17 2200 Temperature Source Temporal 04/25/17 2200 Patient Temperature 98.4 degrees F 04/26/17 0600 Temperature Source Temporal 04/26/17 0600 Patient Temperature 99.0 degrees F 04/25/17 1400 Temperature Source Temporal 04/25/17 1400 Item Value Date Time White Blood Count 14.8 10^3/uL H 04/25/17 0256 White Blood Count 11.7 10^3/uL H 04/26/17 0618 Random Vancomycin Level 11.0 UG/ML 04/26/17 0621 Creatinine 8.97 MG/DL H 04/25/17 0256 Creatinine 9.65 MG/DL H 04/26/17 0621 Micro Microbiology 04/25/17 Blood Culture - Preliminary, Resulted No growth after 24 hours . All specim... 04/25/17 Blood Culture - Preliminary, Resulted No growth after 24 hours . All specim... 04/25/17 Body Fluid Culture, Received Pending Creatinine Clearance Date:04/26/17. Creatinine Clearance: . Assessment and Plan Maintaining Current Dose?: No Reason for dose change: Trough too low Pharmacist Note Pharmacist Note Date: 04/26/17. Pharmacist note: Patient received 1G Vanco on 04/25@1030 in the ED Patient's random came back this AM at 11mcg/dl. This is below our target goal of 15-20mcg/ml. Pt was receiving peritoneal dialysis. I have dosed another 500mg dose for 1000 and have scheduled another random for tomorrow AM. We will continue to monitor and dose as needed [facility] Apr 26, 2017 09:52
[2017-04-26] MEDS ORDERED: VANCOMYCIN HCL 500 MG in D5W MINI-BAG PLUS 100 ML IV ONE (10:00)
--- NOTE | 2017-04-26 10:21 | IPNPDOC ---
Date Seen The patient was seen on 04/26/17. Progress Note SUBJECTIVE: Patient is a 77-year-old male with past medical history of : ESRD on PD; CAD; BPH; chronic constipation; ; presenting on 04/25/2017 with sudden abdominal pain. Today patient was seen bedside and states he is feeling much better. At this time he still complains of some abdominal pain when moving or sitting up, but denies pain at rest. He states he was nauseous and vomited last night. Presently he denies any nausea. He has not had a bowel movement since Wednesday, but normally has one every day. He denies lightheadedness, dizziness, headache , shortness of breath, difficulty breathing, chest pain. OBJECTIVE PHYSICAL EXAMINATION: VITAL SIGNS: Please see below. GENERAL: Elderly male lying supine in bed in no apparent distress HEENT: Atraumatic, normocephalic. EOMI CARDIOVASCULAR: Normal s1/s2, no noted rubs, murmurs, or gallops RESPIRATORY: Crackles appreciated in the right lower lung zonel, adequate inspiratory and expiratory airway excursion ABDOMINAL: Tender to touch with mild guarding. Distended. Normoactive bowel sounds. Peritoneal dialysis port noted in lower left, with some erythema noted EXTREMITIES: Moves all extremities. No peripheral edema noted. AV fistula noted with strong thrill and bruit in right upper arm NEUROLOGICAL: CN II-XII grossly intact PSYCHOLOGICAL: Very pleasant mood and affect. LABORATORY DATA: Please see below. MICROBIOLOGY: Please see below. IMAGING: CT Abdomen & Pelvis without contrast Impression: Comparison to prior exam on 03/24/2015. Chronic bronchitis. Bilateral basilar interstitial by pleural thickening. Interval appearance of bilateral groundglass densities in the bases. Liver cirrhosis. Unchanged multiple hepatic cysts. Polycystic disease. Polycystic kidney disease. Unchanged. Enlarged kidneys with a large number of bilateral renal cysts. Prior cholecystectomy. Interval appearance of small amount of free fluid in the abdomen and pelvis. Peritoneal dialysis catheter is again noted. Multifocal thickening of the cord more prominent at the level of the transverse colon. Not present on prior exam. Unchanged prostatomegaly. Unchanged diffuse thickening of the wall of the bladder. Unchanged bilateral fat containing inguinal hernias. DVT prophylaxis ordered?: Sequentials ASSESSMENT AND PLAN: This is a 77-year-old male with acute peritonitis. PROBLEMS: 1. Acute PD peritonitis: - Nephrology consulted - Meropenem 1gm IV 50mL at 100mLs/hr every 24 hours - Vancomycin 500mg infused over 1 hour IV; one dose - Gentamicin 40mg intraperitoneal every day - Morphine 2mg IV every 4 hours 2. ESRD: - Continue peritoneal dialysis 3. Secondary hyperparathyroidism - Following nephrology recommendation, continue current dose of calcitriol 0.25mcg by mouth daily 4. 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 Hypokalemia - Secondary to ESRD and peritoneal dialysis - Nephrology started potassium chloride 20mEq by mouth daily 7. Anemia - Secondary to ESRD - Following nephrology recommendation, no intervention is needed at this time 8. Coronary artery disease - Amiodarone 200mg by mouth twice a day - Aspirin 81mg by mouth daily 9. Benign prostatic hypertrophy - Tamsulosin 0.4mg by mouth every day at nighttime 10. Chronic constipation - Magnesium 400mg by mouth every day at nighttime - Bisacodyl 5mg by mouth every day as needed for constipation - Senna/Docusate 1 tablet by mouth twice a day 11. PPI Prophylaxis - Pantoprazole 40mg by mouth daily 12. Pain or fever - Acetaminophen 650mg by mouth every 4 hours as needed for mild pain or fever DISPOSITION: Admitted to the medical-surgical unit. Continue with daily peritoneal fluid analysis. If not < 3000 by then could consider initiating anti-fungal. VS, I&O, 24H, Fishbone Vital Signs/I&O Vital Signs Date Time Temp Pulse Resp B/P (MAP) Pulse Ox O2 Delivery O2 Flow Rate FiO2 04/26/17 06:00 98.4 75 18 102/57 (72) 98 Nasal Cannula 2.0 I&O- Last 24 Hours up to 6 AM 04/27/17 06:00 Intake Total 2000 ml Output Total 1635 ml Balance 365 ml Laboratory Data 24H LABS Laboratory Tests 2 04/26/17 06:18: Immature Granulocyte % (Auto) 0.4H, White Blood Count 11.7H, Red Blood Count 2.99L, Hemoglobin 9.6L, Hematocrit 29.8L, Mean Corpuscular Volume 99.7H, Mean Corpuscular Hemoglobin 32.1, Mean Corpuscular Hemoglobin Concent 32.2, Red Cell Distribution Width 14.9H, Platelet Count 142L, Neutrophils (%) (Auto) 82.8H, Lymphocytes (%) (Auto) 7.3L, Monocytes (%) (Auto) 8.3H, Eosinophils (%) (Auto) 1.0, Basophils (%) (Auto) 0.2, Neutrophils # (Auto) 9.7H, Lymphocytes # (Auto) 0.9L, Monocytes # (Auto) 1.0H, Eosinophils # (Auto) 0.1, Basophils # (Auto) 0.0 , Immature Granulocyte # (Auto) 0.1H, Nucleated Red Blood Cells % (auto) 0.0 04/26/17 06:21: Blood Urea Nitrogen 99H, Creatinine 9.65H, Sodium Level 137, Potassium Level 4.2 #, Chloride Level 98, Carbon Dioxide Level 29, Anion Gap 10, Glomerular Filtration Rate 5.6L, Calcium Level 8.2L, Phosphorus Level 5.3H, Albumin 1.9#L, Random Vancomycin Level 11.0 04/26/17 06:50: Body Fluid WBC (Auto) 4586H, Body Fluid RBC (Auto) < 2, Body Fluid Mononuclear Cells % Auto 375.0H, Fluid Polymorphonuclear Cell % Auto 4211.0H, Peritoneal Fluid Source PERITONEAL, Peritoneal Fluid Color WHITE, Peritoneal Fluid Appearance HAZY CBC/BMP Laboratory Tests 04/26/17 06:18 Red Blood Count 2.99 L, Mean Corpuscular Volume 99.7 H, Mean Corpuscular Hemoglobin 32.1, Mean Corpuscular Hemoglobin Concent 32.2, Red Cell Distribution Width 14.9 H, Neutrophils (%) (Auto) 82.8 H, Lymphocytes (%) (Auto ) 7.3 L, Monocytes (%) (Auto) 8.3 H, Eosinophils (%) (Auto) 1.0, Basophils (%) ( Auto) 0.2, Neutrophils # (Auto) 9.7 H, Lymphocytes # (Auto) 0.9 L, Monocytes # ( Auto) 1.0 H, Eosinophils # (Auto) 0.1, Basophils # (Auto) 0.0 04/26/17 06:21 Anion Gap 10 Microbiology Microbiology 04/25/17 Blood Culture - Preliminary, Resulted No growth after 24 hours . All specim... 04/25/17 Blood Culture - Preliminary, Resulted No growth after 24 hours . All specim... 04/25/17 Body Fluid Culture, Received Pending JD ROSALES DO Apr 26, 2017 09:53 MALINA SPRINGER MD Apr 27, 2017 06:34
--- NOTE | 2017-04-26 12:55 | IPN ---
DATE: 04/26/2017 SUBJECTIVE: The patient was seen and examined at the bedside this morning. Over the last 24 hour has been noted. The patient's peritoneal fluid cell count is improving. He also reports that his abdominal pain is better. He does report an episode of nausea and vomiting last night. REVIEW OF SYSTEMS: The patient denies any fever, chills or rigors. He denies any chest pain or shortness of breath. He does report moderate amount of pain in the abdomen but it is significantly better as compared with yesterday. He does report increased appetite. The rest of the review of system is negative. OBJECTIVE: VITAL SIGNS: Temperature 98.4 degrees Fahrenheit, blood pressure 102/57, pulse 75, respiratory rate 18, saturating 98% on nasal cannula at 2 liters. Intake and output: Urine output is recorded as 300 mL and he is 460 mL negative according to the peritoneal dialysis. Bedside weight is not available. GENERAL: The patient is awake, alert, oriented times three laying in bed. No apparent distress. HEAD/NECK: Extraocular muscles intact. Pupils equal, round, and reactive to light. Mucous membranes are moist. Neck is supple. There is no jugular venous distention. CARDIOVASCULAR: S1, S2, regular rate. No murmur, rub or gallop. RESPIRATORY: Chest is clear to auscultation bilaterally. Bilateral clear air entry. No rales or rhonchi. ABDOMEN: Soft, moderately tender to deep palpation in the right lower quadrant. Left lower quadrant tenderness is better. He has a catheter in the left lower quadrant with no signs of infection at the exit site. MUSCULOSKELETAL: No clubbing or cyanosis. Pulses are 2+. 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 Power is 5/5 in all extremities. SKIN: No rashes or ulcers. PSYCH: Normal mood and affect. LAB REVIEW: CBC showed a WBC of 11.7 which is better than yesterday. Hemoglobin 9.6, platelets 142. Peritoneal fluid cell count is 4586 and out of that polymorphonuclear cells were 4200. BMP showed sodium 137, potassium 4.2, chloride 98, bicarbonate 29, BUN 99, creatinine 9.6, calcium 8.2, phosphorus 5.3, albumin 1.9. Random vancomycin was 11 this morning. Microbiology: Blood cultures is negative so far. Peritoneal fluid culture is pending. CURRENT INPATIENT MEDICATIONS: Patient's medications are all reviewed by me. He got 500 mg of IV vancomycin today. He continues to be on IV meropenem. I have given him another dose of gentamicin 40 mg intraperitoneally today. There is no other change in the medications today as compared with yesterday. ASSESSMENT: 77-year-old male with a past medical history of endstage renal disease on peritoneal dialysis secondary to polycystic kidney disease admitted this time because of acute peritonitis. PLAN: 1. Acute peritonitis associated with peritoneal dialysis: The patient's symptoms are getting better. His white cell count is coming down. Continue empiric treatment with IV vancomycin and IV meropenem. The patient is getting intraperitoneal gentamicin as well. He got another dose today. Follow the cultures and will taper the antibiotics as needed according to the cultures. 2. Endstage renal disease and peritoneal dialysis: His PD regimen was changed yesterday. Six exchanges of 2 liters each all 1.5%. 3. Anemia secondary to endstage renal disease: Patient will be given a dose of Aranesp today. 4. Hyperphosphatemia: Secondary to mineral bone disease. Continue current dose of lanthanum 1 gram by mouth with meals. 5. Latent tuberculosis: I checked the outpatient PD center records. The patient follows up with infectious disease in [place]. He has finished 6 months of isoniazid. He needs 3 more months of isoniazid therapy.
[2017-04-26] MEDS: BISACODYL 5 MG TAB PO PRN (13:24)
[2017-04-26 14:00] VITALS: BP 118/60
[2017-04-26] MEDS: MORPHINE 2 MG/ML 1ML SYRINGE IV SCH (14:38)
[2017-04-26 15:07] LABS: BF MONONUCLEAR CELL % 8.2 % (0-0)
[2017-04-26 15:08] LABS: BF POLYMORPHONUCLEAR CELL % 91.8 % (0-0)
[2017-04-26 15:09] LABS: BF DIFF IF INDICATED? YES (NO)
[2017-04-26] MEDS: TAMSULOSIN 0.4 MG CAP PO SCH (21:21)
[2017-04-26] MEDS: MAGNESIUM OXIDE 400 MG TAB (MAG-OX) PO SCH (21:21)
[2017-04-26] MEDS: VITAMIN D 1,000 INTERNATIONAL UNITS TABLET PO SCH (21:21)
[2017-04-26 22:00] VITALS: BP 131/65
[2017-04-27] MEDS: MEROPENEM INJ 1 GM in APPROPRIATE DILUENT 1 EA IV SCH (05:54)
[2017-04-27 06:00] VITALS: BP 120/64
[2017-04-27 06:11] LABS: BASO % 0.2 % (0.0-1.0); EOS # 0.2 10^3/uL (0.0-0.50); EOS % 2.8 % (0.0-3.0); IMMATURE GRANULOCYTE % 0.2 % (0-0); LYMPH # 0.4 10^3/uL (1.5-4.5); LYMPH % 4.5 % (24.0-44.0); MEAN CORPUSCULAR HEMOGLOBIN 31.7 pg (27.0-33.0); MEAN CORPUSCULAR HGB CONC 32.3 g/dl (32.0-36.5); MONO # 0.5 10^3/uL (0.0-0.8); MONO % 6.3 % (0.0-5.0); NEUTROPHILS # 7.3 10^3/uL (1.8-7.7); PLATELET COUNT, AUTOMATED 140 10^3/uL (150-450); RED CELL DISTRIBUTION WIDTH 14.6 % (11.5-14.5); WHITE BLOOD COUNT 8.5 10^3/uL (4.0-10.0)
[2017-04-27 06:29] LABS: CALCIUM LEVEL 8.3 MG/DL (8.8-10.2); CREATININE FOR GFR 8.72 MG/DL (0.70-1.30); GLOMERULAR FILTRATION RATE 6.3 (>42); POTASSIUM SERUM 4.2 MEQ/L (3.5-5.1); VANCOMYCIN RANDOM 12.5 UG/ML
[2017-04-27] MEDS: LANTHANUM CARBONATE 500 MG CHEW TABLET PO SCH ×3 (07:39→17:55)
--- NOTE | 2017-04-27 08:09 | PHACANCOPD ---
PHARMACY VANCOMYCIN DOSING Pt Demographics Demographics Patient Age:77 , Weight:83.000 , Gender: male Adjusted Body Weight Date: 04/26/17, Adjusted Body Weight: Kg Events Past 24 Hours Events Past 24 Hours: YES: Dialysis, Diuretic Therapy, Change in CrCl, Fever, Elevation in WBC, Pending Diagnostics, Pending Procedures, Other Vancomycin Vancomycin Target Ranges: 15-20 mcg/ml Vancomycin Load Y/N: Yes Load Dose Date Time Vancomycin Load Dose: 1G Date: 04/25 Time: 1030 Vancomycin Dose Date: 04/26/17. Current Vancomycin Dose: [INTERMITTENT] Intermittent Dosing?: Yes Labs Micro Microbiology 04/25/17 Blood Culture - Preliminary, Resulted 04/25/17 Blood Culture - Preliminary, Resulted No Growth after 48 hours. All Specime... 04/25/17 Body Fluid Culture - Final, Complete Streptococcus Viridans Group Creatinine Clearance Date:04/26/17. Creatinine Clearance: . Assessment and Plan Maintaining Current Dose?: Yes Reason for dose change: No Dose Change Pharmacist Note Pharmacist Note Date: 04/27/17. Pharmacist note: patient random vancomycin level came in this AM at 12.5mcg/ml. A 500mg dose is scheduled this morning @1000 and another random is scheduled for tomorrow AM. We will continue to monitor and adjust dose as needed. Date: 04/26/17. Pharmacist note: Patient received 1G Vanco on 04/25@1030 in the ED Patient's random came back this AM at 11mcg/dl. This is below our target goal of 15-20mcg/ml. Pt was receiving peritoneal dialysis. I have dosed another 500mg dose for 1000 and have scheduled another random for tomorrow AM. We will continue to monitor and dose as needed LYNN [facility]IVER [facility] Apr 27, 2017 08:09
[2017-04-27] MEDS: ASPIRIN 81 MG ENTERIC TAB PO SCH (09:43)
[2017-04-27] MEDS: CALCITRIOL 0.25 MCG CAP (S0169) PO SCH (09:44)
[2017-04-27] MEDS: AMIODARONE 200 MG TAB (PACERONE) PO SCH ×2 (09:44→20:50)
[2017-04-27] MEDS: POTASSIUM CHLORIDE 10 MEQ SR TABLET PO SCH (09:44)
[2017-04-27] MEDS: ISONIAZID 300 MG TAB PO SCH (09:44)
[2017-04-27] MEDS: PANTOPRAZOLE 40MG TAB (PROTONIX) PO SCH (09:44)
[2017-04-27] MEDS: SENOKOT S TAB PO SCH ×2 (09:45→20:49)
[2017-04-27] MEDS: MIRALAX *UNIT DOSE* 17GM PACKET PO PRN (09:48)
[2017-04-27 10:00] VITALS: BP 120/62
[2017-04-27] MEDS: CEFTRIAXONE SOD 1 GM in APPROPRIATE DILUENT 1 EA IV SCH (10:00)
[2017-04-27] MEDS ORDERED: VANCOMYCIN HCL 500 MG in D5W MINI-BAG PLUS 100 ML IV ONE (10:00)
--- NOTE | 2017-04-27 10:18 | IPNPDOC ---
Date Seen The patient was seen on 04/27/17. Progress Note SUBJECTIVE: Patient is a 77-year-old male with past medical history of : ESRD on PD; CAD; BPH; chronic constipation; ; presenting on 04/25/2017 with sudden abdominal pain. Today, the patient was seen bedside; while concerned with his peritonitis, he is also very concerned about his constipation, as he has not had a bowel movement since 04/23/2017 and normally has one everyday. He also maintains the complaint of shortness of breath; he has an appointment at the pulmonary clinic (he is not sure which physician) on Wednesday04/30/2017 to follow up on the sleep study performed 04/24/2017. He states that although the sleep study was interrupted by the onset of the peritonitis, he was informed that they still collected enough information to make a determination on the results. At present , he denies fever, chills, lightheadedness, dizziness, headache, chest pain, nausea, vomiting. OBJECTIVE PHYSICAL EXAMINATION: VITAL SIGNS: Please see below. GENERAL: Elderly appearing male lying supine in bed in no apparent distress. HEENT: Atraumatic normocephalic. EOMI. Neck supple CARDIOVASCULAR: Regular rate; Grade III/ holosystolic murmur best heard over the apex. RESPIRATORY: Crackles noted bilaterally in the bases; lung sounds clear on the right middle and upper lobes and left upper lobe. ABDOMINAL: Distended, tender, some guarding. Normoactive bowel sounds EXTREMITIES: Moves all extremities NEUROLOGICAL: CN II-XII grossly intact. PSYCHOLOGICAL: Very pleasant mood and affect. LABORATORY DATA: Please see below. MICROBIOLOGY: Please see below. IMAGING: CT Abdomen & Pelvis without contrast Impression: Comparison to prior exam on 03/24/2015. Chronic bronchitis. Bilateral basilar interstitial by pleural thickening. Interval appearance of bilateral groundglass densities in the bases. Liver cirrhosis. Unchanged multiple hepatic cysts. Polycystic disease. Polycystic kidney disease. Unchanged. Enlarged kidneys with a large number of bilateral renal cysts. Prior cholecystectomy. Interval appearance of small amount of free fluid in the abdomen and pelvis. Peritoneal dialysis catheter is again noted. Multifocal thickening of the cord more prominent at the level of the transverse colon. Not present on prior exam. Unchanged prostatomegaly. Unchanged diffuse thickening of the wall of the bladder. Unchanged bilateral fat containing inguinal hernias. DVT prophylaxis ordered?: Sequentials ASSESSMENT AND PLAN: This is a 77-year-old male with acute peritonitis. PROBLEMS: 1. Acute PD peritonitis: - Nephrology consulted - Abdominal cultures returned with Streptococcus viridans; antibiotic changed to IV Rocephin - Gentamicin and Meropenem discontinued based culture results - Morphine 2mg IV every 4 hours - Pending daily peritoneal cell count 2. ESRD: - Continue peritoneal dialysis as directed by nephrology 3. Constipation - Dulcolax 5mg by mouth daily as needed for constipation - Senokot 1 tablet by mouth twice a day - Add Miralax for continued constipation - Magnesium 400mg by mouth every day at nighttime 4. Secondary hyperparathyroidism - Following nephrology recommendation, continue current dose of calcitriol 0.25mcg by mouth daily 5. 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 Hypokalemia - Secondary to ESRD and peritoneal dialysis - Repeated labs yesterday and today both returned at 4.2mEq/L 8. Anemia - Secondary to ESRD - Following nephrology recommendation, Aranesp 100mcg subcutaneous injection was given yesterday 9. Coronary artery disease - Aspirin 81mg by mouth daily 10. Benign prostatic hypertrophy - Tamsulosin 0.4mg by mouth every day at nighttime 11. Latent tuberculosis - Managed by infectious disease in [place] - On Isoniazid 300mg by mouth daily; has completed 6 months of therapy, and requires 3 more months of therapy 12. Chronic atrial fibrillation - Rate is currently noted to be regular - Amiodarone 200mg by mouth twice a day 12. PPI Prophylaxis - Pantoprazole 40mg by mouth daily 13. Pain or fever - Acetaminophen 650mg by mouth every 4 hours as needed for mild pain or fever DISPOSITION: Admitted to the medical-surgical unit. Continue with daily peritoneal fluid analysis. If not < 3000 by then could consider initiating anti-fungal. VS, I&O, 24H, Fishbone Vital Signs/I&O Vital Signs Date Time Temp Pulse Resp B/P (MAP) Pulse Ox O2 Delivery O2 Flow Rate FiO2 04/27/17 06:00 97.7 84 19 120/64 (82) 94 Nasal Cannula 2.0 Laboratory Data 24H LABS Laboratory Tests 2 04/27/17 05:48: Immature Granulocyte % (Auto) 0.2H, White Blood Count 8.5, Red Blood Count 3.03L , Hemoglobin 9.6L, Hematocrit 29.7L, Mean Corpuscular Volume 98.0H, Mean Corpuscular Hemoglobin 31.7, Mean Corpuscular Hemoglobin Concent 32.3, Red Cell Distribution Width 14.6H, Platelet Count 140L, Neutrophils (%) (Auto) 86.0H, Lymphocytes (%) (Auto) 4.5L, Monocytes (%) (Auto) 6.3H, Eosinophils (%) (Auto) 2.8, Basophils (%) (Auto) 0.2, Neutrophils # (Auto) 7.3, Lymphocytes # (Auto) 0.4L, Monocytes # (Auto) 0.5, Eosinophils # (Auto) 0.2, Basophils # (Auto) 0.0, Immature Granulocyte # (Auto) 0.0, Nucleated Red Blood Cells % (auto) 0.0, Anion Gap 10, Glomerular Filtration Rate 6.3L, Blood Urea Nitrogen 90H, Creatinine 8.72H, Sodium Level 136, Potassium Level 4.2, Chloride Level 97L, Carbon Dioxide Level 29, Calcium Level 8.3L, Random Vancomycin Level 12.5 CBC/BMP Laboratory Tests 04/27/17 05:48 Red Blood Count 3.03 L, Mean Corpuscular Volume 98.0 H, Mean Corpuscular Hemoglobin 31.7, Mean Corpuscular Hemoglobin Concent 32.3, Red Cell Distribution Width 14.6 H, Neutrophils (%) (Auto) 86.0 H, Lymphocytes (%) (Auto ) 4.5 L, Monocytes (%) (Auto) 6.3 H, Eosinophils (%) (Auto) 2.8, Basophils (%) ( Auto) 0.2, Neutrophils # (Auto) 7.3, Lymphocytes # (Auto) 0.4 L, Monocytes # ( Auto) 0.5, Eosinophils # (Auto) 0.2, Basophils # (Auto) 0.0, Calcium Level 8.3 L Microbiology Microbiology 04/25/17 Blood Culture - Preliminary, Resulted 04/25/17 Blood Culture - Preliminary, Resulted No Growth after 48 hours. All Specime... 11/19/17 Body Fluid Culture, Received Pending JD ROSALES DO Apr 27, 2017 07:25
[2017-04-27 11:32] LABS: BF MONONUCLEAR CELL % 49.7 % (0-0); BF POLYMORPHONUCLEAR CELL % 50.3 % (0-0); RBC BODY FLUID < 2 10^3/uL (<2); WBC BODY FLUID 133 /uL (0-10)
[2017-04-27 11:35] LABS: BF DIFF IF INDICATED? YES (NO); PERITONEAL FL COLOR COLORLESS (COLORLESS)
[2017-04-27 14:00] VITALS: BP 130/70
--- NOTE | 2017-04-27 14:45 | IPN ---
DATE: 04/27/2017 SUBJECTIVE: Patient was seen and examined at the bedside today morning. Patient reports that he is significantly getting better. His pain in the abdomen is improving. His WBC count and cell count in the peritoneal fluid is also improving; however, patient does report constipation. REVIEW OF SYSTEMS: The patient denies any fever, chills or rigors. He denies any chest pain, shortness of breath or cough. He does report a mild amount of pain. He denies any dysuria or hematuria. Patient reports constipation and he has not moved his bowels for the last four days. The rest of review of systems is negative. OBJECTIVE: VITAL SIGNS: Temperature 98.4 degrees Fahrenheit, blood pressure 120/62, pulse 70, respiratory rate 16, saturating 94% on nasal cannula at 2 liters. INTAKE AND OUTPUT: Patient is 965 mL negative according to PD intake and output yesterday. Bed scale weight is not available. PHYSICAL EXAMINATION: GENERAL: Patient is awake, alert, oriented times three laying in bed. No apparent distress. HEAD/NECK: Extraocular muscles intact. Pupils equally round and reactive to light. Mucous membranes are moist. Neck is supple. There is no jugular venous distention. CARDIOVASCULAR: S1, S2, regular rate. No murmur, rub or gallop. RESPIRATORY: Chest is clear to auscultation bilaterally. Bilateral equal air entry. No rales or rhonchi. ABDOMEN: Soft, mildly tender to deep palpation in the right lower quadrant. He has a left lower quadrant peritoneal dialysis catheter. No drainage or crusting on the exit site. MUSCULOSKELETAL: No clubbing or cyanosis. Pulses are 2+. 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 Power is 5/5 in all extremities. SKIN: No rashes or ulcers. PSYCH: Normal mood and affect. LAB REVIEW: CBC showed a WBC of 8.5, hemoglobin 9.6, platelets 140. Peritoneal fluid cell count is 133 and 50% were polymorphonuclear. BMP done today showed sodium 136, potassium 4.2, chloride 97, bicarbonate 29, BUN 90, creatinine 8.7, calcium 8.3. Random vancomycin level today morning is 12.5. Microbiology: Peritoneal fluid culture came back positive for Streptococcus viridans which is sensitive penicillin, clindamycin, Levaquin, vancomycin and third generation cephalosporins. CURRENT INPATIENT MEDICATIONS: Patient's medications were all reviewed by me. I stopped the meropenem and IV vancomycin now. Intraperitoneal gentamicin has also been stopped. The patient has been switched to IV Rocephin at this time. Patient was also given a dose of MiraLAX today morning. ASSESSMENT: 77-year-old male with a past medical history of endstage renal disease on peritoneal dialysis secondary to polycystic kidney disease admitted this time because of acute peritonitis. PLAN: 1. Acute peritonitis. Patient was empirically being treated with meropenem, IV vancomycin and intraperitoneal gentamicin. Cultures came back positive for Streptococcus viridans. Antibiotic has been switched to IV ceftriaxone. I would have preferred to give fluoroquinolones to this patient, but he is on amiodarone and there is a high risk of QT prolongation in combination with amiodarone, so when the patient is discharged home he has to be discharged on oral cephalosporin. The patient needs to finish a total of two weeks course of antibiotic for streptococcal infection. 2. Endstage renal disease on peritoneal dialysis. Continue current PD regimen, six exchanges of 2 liters each all 1.5%. 3. Anemia secondary to endstage renal disease. Patient was given a dose of Aranesp yesterday. Hemoglobin is 9.6, which is slightly suboptimal. 4. Constipation. Patient was given a dose of MiraLAX. I also ordered one dose of soap suds enema after PD exchange today in the afternoon. DISPOSITION: Patient's peritonitis is improving. If the patient feels better by tomorrow morning he should be able to be discharged on oral antibiotics within the next 24-48 hours.
[2017-04-27] MEDS: MORPHINE 2 MG/ML 1ML SYRINGE IV SCH (14:57)
--- NOTE | 2017-04-27 20:25 | ECHO ---
DATE OF PROCEDURE: 04/27/2017 AGE: 77 GENDER: Male HEIGHT: 72 inches WEIGHT: 183 pounds BODY SURFACE AREA: 2.05 m2 PATIENT LOCATION: Inpatient, [address] [place] [address], room 4230 REFERRING PHYSICIAN: Dr. Juno Wood INDICATION: Bacteremia. 2-D MEASUREMENTS: RV: 4.5 cm LV: 5.8 cm Septum: 1.2 cm Posterior wall: 1.2 cm Aortic root: 4.3 cm LA: 4.7 cm LVEF: 60 - 65% DOPPLER MEASUREMENTS: AV: 3.5 m/s LVOT: 0.84 m/s LVOT diameter: 2.4 cm Mean AV gradient: 28 mmHg MV-E: 95, A: 110, EA ratio: 0.8 Early mitral deceleration time: 144 ms E prime: 7.1, A prime: 12, E/A prime ratio: 13.4 PV: 0.8 cm/s Pulmonary artery acceleration time: 88 ms RVSP: 46 mmHg IVC: 2.0 cm COMMENTS: Consistent atrially paced rhythm with spontaneous AV conduction and narrow QRS complexes. Moderately dilated left atrium and mildly dilated left ventricle. Moderately dilated right heart chambers. LV wall thickness was borderline hypertrophied symmetrically. On real-time imaging from the parasternal and apical projections there appeared to be a localized area of hypo- to akinesis in the inferolateral wall, but other left ventricular tavares move normally or were hyperkinetic. Slightly thickened mitral annulus, but normal leaflet thickness and excursion with no posterior systolic buckling. Three equal size aortic cusps with moderately thickened cusp edges and what appeared to be slight reduction in cusp separation. At least mildly dilated aortic root, but normal proximal ascending aorta. Pacing leads could be visualized traversing right heart structures. No separate intracardiac mass or pericardial effusion. Color flow Doppler study taken from the parasternal and apical projections showed mild aortic, trace mitral and mild tricuspid insufficiency. Guided continuous wave Doppler of his aortic valve and pulsed Doppler study of his LV outflow tract taken from the apical long axis and five chamber projection showed an increased peak systolic velocity and mean gradient with dimensionless index of 0.24 in keeping with at least a moderate degree of calcific aortic stenosis. Pulsed and continuous wave Doppler of his LV inflow tract taken from the apical four-chamber projection showed normal diastolic filling velocities against mitral stenosis. There was a more prominent late diastolic/atrial dependent filling pattern. Diastolic dysfunction was further confirmed by tissue Doppler of his mitral annulus with current estimated mean left atrial pressure upper limits of normal to slightly increased. Pulsed and continuous wave Doppler of his pulmonary trunk showed a normal peak systolic velocity against RV outflow tract obstruction, but an abbreviated pulmonary artery acceleration time in keeping with a degree of pulmonary vascular hypertension. Guided continuous wave Doppler of his tricuspid valve allowed our estimation of his right ventricular systolic pressure (at least moderately increased). His inferior vena cava was currently of normal size with normal respiratory collapse against an elevated central venous pressure. CONCLUSIONS: Moderate calcific aortic stenosis with mild insufficiency. Could not visualize a pedunculated vegetation but could not rule out a sessile vegetation with certainty. Normal appearing and functioning mitral valve. Other valvular structures also appeared to be normal. Borderline hypertrophied and at least mildly dilated left ventricle with localized inferolateral wall motion abnormality in keeping with prior myocardial injury. Preserved global resting systolic function. Moderately dilated left atrium with Doppler evidence of an impairment of LV diastolic function with a current estimated mean left atrial pressure upper limits of normal to slightly increased. Moderately dilated right heart chambers with Doppler evidence of at least moderate pulmonary retention. Normal IVC size and collapse against an elevated central venous pressure at this time.
[2017-04-27] MEDS: VITAMIN D 1,000 INTERNATIONAL UNITS TABLET PO SCH (20:49)
[2017-04-27] MEDS: MAGNESIUM OXIDE 400 MG TAB (MAG-OX) PO SCH (20:50)
[2017-04-27] MEDS: TAMSULOSIN 0.4 MG CAP PO SCH (20:50)
[2017-04-27 22:00] VITALS: BP 138/65
[2017-04-28] MEDS: BISACODYL 5 MG TAB PO PRN (02:41)
[2017-04-28 06:00] VITALS: BP 139/66
[2017-04-28 06:21] LABS: BASO % 0.1 % (0.0-1.0); EOS # 0.2 10^3/uL (0.0-0.50); IMMATURE GRANULOCYTE % 0.6 % (0-0); LYMPH # 0.5 10^3/uL (1.5-4.5); MEAN CORPUSCULAR HEMOGLOBIN 32.2 pg (27.0-33.0); MEAN CORPUSCULAR HGB CONC 32.7 g/dl (32.0-36.5); MEAN CORPUSCULAR VOLUME 98.7 fl (80.0-96.0); MONO # 0.6 10^3/uL (0.0-0.8); MONO % 7.6 % (0.0-5.0); NEUTROPHILS # 6.7 10^3/uL (1.8-7.7); NEUTROPHILS % 82.7 % (36.0-66.0); PLATELET COUNT, AUTOMATED 147 10^3/uL (150-450); RED CELL DISTRIBUTION WIDTH 14.6 % (11.5-14.5); WHITE BLOOD COUNT 8.1 10^3/uL (4.0-10.0)
[2017-04-28 06:29] LABS: CALCIUM LEVEL 8.1 MG/DL (8.8-10.2); CREATININE FOR GFR 8.39 MG/DL (0.70-1.30); GLOMERULAR FILTRATION RATE 6.6 (>42); POTASSIUM SERUM 3.9 MEQ/L (3.5-5.1)
[2017-04-28 08:07] LABS: BF MONONUCLEAR CELL % 63.6 % (0-0); BF POLYMORPHONUCLEAR CELL % 36.4 % (0-0); RBC BODY FLUID < 2 10^3/uL (<2); WBC BODY FLUID 22 /uL (0-10)
[2017-04-28 08:08] LABS: BF DIFF IF INDICATED? YES (NO); PERITONEAL FL COLOR COLORLESS (COLORLESS)
[2017-04-28] MEDS: ISONIAZID 300 MG TAB PO SCH (08:32)
[2017-04-28] MEDS: CALCITRIOL 0.25 MCG CAP (S0169) PO SCH (08:32)
[2017-04-28] MEDS: PANTOPRAZOLE 40MG TAB (PROTONIX) PO SCH (08:32)
[2017-04-28] MEDS: AMIODARONE 200 MG TAB (PACERONE) PO SCH ×2 (08:32→21:12)
[2017-04-28] MEDS: LANTHANUM CARBONATE 500 MG CHEW TABLET PO SCH ×3 (08:32→17:57)
[2017-04-28] MEDS: POTASSIUM CHLORIDE 10 MEQ SR TABLET PO SCH (08:32)
[2017-04-28] MEDS: SENOKOT S TAB PO SCH ×2 (08:32→21:12)
[2017-04-28] MEDS: FEBUXOSTAT 40 MG TABLET (ULORIC) PO SCH (08:32)
[2017-04-28] MEDS: ASPIRIN 81 MG ENTERIC TAB PO SCH (08:32)
--- NOTE | 2017-04-28 10:46 | IPNPDOC ---
Date Seen The patient was seen on 04/28/17. Progress Note SUBJECTIVE: Patient is a 77-year-old male with past medical history of : ESRD on PD; CAD; BPH; chronic constipation; presenting on 04/25/2017 with sudden abdominal pain. Today, he was seen bedside and reported no complaints. He states he did have a bowel movement yesterday; he also vomited once this morning. He states the abdominal discomfort/distention is less than previous days. During our conversation, he also stated that he has become short of breath at significantly shorter distances over the last month, from walking 15 minutes at a time without weakness, where as now he becomes weak at less than 20-25 feet; however, it is currently stable with no acute change. He states he already has an appointment scheduled with pulmonology on Wednesday; he also states he has an appointment with cardiology next week. At this time he denies lightheadedness, dizziness, headache, chest pain, shortness of breath, difficulty breathing, abdominal pain, nausea. OBJECTIVE PHYSICAL EXAMINATION: VITAL SIGNS: Please see below. GENERAL: Elderly appearing male lying supine in bed in no apparent distress. HEENT: Atraumatic normocephalic. EOMI. Neck supple CARDIOVASCULAR: Regular rate; Grade III/ holosystolic murmur best heard over the apex. RESPIRATORY: Crackles noted bilaterally in the bases; lung sounds clear on the right middle and upper lobes and left upper lobe. ABDOMINAL: Decreased distention compared to previous days; tender only to deep palpation of the lower left quadrant. No noted guarding. Normoactive bowel sounds EXTREMITIES: Moves all extremities NEUROLOGICAL: CN II-XII grossly intact. PSYCHOLOGICAL: Very pleasant mood and affect. LABORATORY DATA: Please see below. MICROBIOLOGY: Please see below. IMAGING: CT Abdomen & Pelvis without contrast Impression: Comparison to prior exam on 03/24/2015. Chronic bronchitis. Bilateral basilar interstitial by pleural thickening. Interval appearance of bilateral groundglass densities in the bases. Liver cirrhosis. Unchanged multiple hepatic cysts. Polycystic disease. Polycystic kidney disease. Unchanged. Enlarged kidneys with a large number of bilateral renal cysts. Prior cholecystectomy. Interval appearance of small amount of free fluid in the abdomen and pelvis. Peritoneal dialysis catheter is again noted. Multifocal thickening of the cord more prominent at the level of the transverse colon. Not present on prior exam. Unchanged prostatomegaly. Unchanged diffuse thickening of the wall of the bladder. Unchanged bilateral fat containing inguinal hernias. ECHOCARDIOGRAM: Moderate calcific aortic stenosis with mild insufficiency. Could not visualize a pedunculated vegetation but could not rule out a sessile vegetation with certainty. Normal appearing and functioning mitral valve. Other valvular structures also appeared to be normal. Borderline hypertrophied and at least mildly dilated left ventricle with localized inferolateral wall motion abnormality in keeping with prior myocardial injury. Preserved global resting systolic function. Moderately dilated left atrium with Doppler evidence of an impairment of LV diastolic function with a current estimated mean left atrial pressure upper limits of normal to slightly increased. Moderately dilated right heart chambers with Doppler evidence of at least moderate pulmonary retention. Normal IVC size and collapse against an elevated central venous pressure at this time. DVT prophylaxis ordered?: Sequentials ASSESSMENT AND PLAN: This is a 77-year-old male with acute peritonitis. PROBLEMS: 1. Acute PD peritonitis: - Nephrology consulted - Continue IV Rocephin - Continue with exchange transfusion of six exchanges of 2L each, totaling 12L daily; currently at equilibrium; could consider concentrating exchanges - Peritoneal cell count of 22; no need for anti-fungal coverage - Blood culture results positive, one tube; if positive for Streptococcus viridans could consider extended antibiotic therapy for endocarditis; see TTE results 2. ESRD: - Continue peritoneal dialysis as directed by nephrology 3. Constipation - Received soap-suds enema; bowel movement recorded - Dulcolax 5mg by mouth daily as needed for constipation - Senokot 1 tablet by mouth twice a day - Magnesium 400mg by mouth every day at nighttime 4. Secondary hyperparathyroidism - Following nephrology recommendation, continue current dose of calcitriol 0.25mcg by mouth daily 5. 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 Anemia - Secondary to ESRD - Continue with Aranesp 8 Coronary artery disease - Aspirin 81mg by mouth daily 9. Benign prostatic hypertrophy - Tamsulosin 0.4mg by mouth every day at nighttime 10. Latent tuberculosis - Managed by infectious disease in [place] - On Isoniazid 300mg by mouth daily; has completed 6 months of therapy, and requires 3 more months of therapy 11. Chronic atrial fibrillation - Rate is currently noted to be regular - Amiodarone 200mg by mouth twice a day 12. PPI Prophylaxis - Pantoprazole 40mg by mouth daily 13. Pain or fever - Acetaminophen 650mg by mouth every 4 hours as needed for mild pain or fever DISPOSITION: Admitted to the medical-surgical unit. Continue with daily peritoneal fluid analysis. Could consider extended antibiotic therapy based on blood culture results. VS, I&O, 24H, Fishbone Vital Signs/I&O Vital Signs Date Time Temp Pulse Resp B/P (MAP) Pulse Ox O2 Delivery O2 Flow Rate FiO2 04/28/17 06:00 98.3 89 19 139/66 (90) 90 Room Air 04/27/17 22:00 2.0 Laboratory Data 24H LABS Laboratory Tests 2 04/27/17 11:15: Body Fluid WBC (Auto) 133H, Body Fluid RBC (Auto) < 2, Body Fluid Mononuclear Cells % Auto 49.7H, Fluid Polymorphonuclear Cell % Auto 50.3H, Peritoneal Fluid Source PERITONEAL, Peritoneal Fluid Color COLORLESS, Peritoneal Fluid Appearance CLEAR 04/28/17 05:54: Immature Granulocyte % (Auto) 0.6H, White Blood Count 8.1, Red Blood Count 3.01L , Hemoglobin 9.7L, Hematocrit 29.7L, Mean Corpuscular Volume 98.7H, Mean Corpuscular Hemoglobin 32.2, Mean Corpuscular Hemoglobin Concent 32.7, Red Cell Distribution Width 14.6H, Platelet Count 147L, Neutrophils (%) (Auto) 82.7H, Lymphocytes (%) (Auto) 6.0L, Monocytes (%) (Auto) 7.6H, Eosinophils (%) (Auto) 3.0, Basophils (%) (Auto) 0.1, Neutrophils # (Auto) 6.7, Lymphocytes # (Auto) 0.5L, Monocytes # (Auto) 0.6, Eosinophils # (Auto) 0.2, Basophils # (Auto) 0.0, Immature Granulocyte # (Auto) 0.1H, Nucleated Red Blood Cells % (auto) 0.0, Anion Gap 8, Glomerular Filtration Rate 6.6L, Blood Urea Nitrogen 77H, Creatinine 8.39H, Sodium Level 134L, Potassium Level 3.9, Chloride Level 96L, Carbon Dioxide Level 30, Calcium Level 8.1L 04/28/17 06:45: Body Fluid WBC (Auto) 22H, Body Fluid RBC (Auto) < 2, Body Fluid Mononuclear Cells % Auto 63.6H, Fluid Polymorphonuclear Cell % Auto 36.4H, Peritoneal Fluid Source PERITONEAL, Peritoneal Fluid Color COLORLESS, Peritoneal Fluid Appearance CLEAR CBC/BMP Laboratory Tests 04/28/17 05:54 Red Blood Count 3.01 L, Mean Corpuscular Volume 98.7 H, Mean Corpuscular Hemoglobin 32.2, Mean Corpuscular Hemoglobin Concent 32.7, Red Cell Distribution Width 14.6 H, Neutrophils (%) (Auto) 82.7 H, Lymphocytes (%) (Auto ) 6.0 L, Monocytes (%) (Auto) 7.6 H, Eosinophils (%) (Auto) 3.0, Basophils (%) ( Auto) 0.1, Neutrophils # (Auto) 6.7, Lymphocytes # (Auto) 0.5 L, Monocytes # ( Auto) 0.6, Eosinophils # (Auto) 0.2, Basophils # (Auto) 0.0, Calcium Level 8.1 L Microbiology Microbiology 04/25/17 Blood Culture - Preliminary, Resulted 04/25/17 Blood Culture - Preliminary, Resulted No Growth after 72 hours. All specime... 04/25/17 Body Fluid Culture - Final, Complete Streptococcus Viridans Group JD ROSALES DO Apr 28, 2017 09:37
[2017-04-28] MEDS: CEFTRIAXONE SOD 1 GM in APPROPRIATE DILUENT 1 EA IV SCH (11:19)
[2017-04-28] MEDS: EUCERIN 120GM CREAM TOP SCH ×2 (12:30→21:13)
[2017-04-28 14:00] VITALS: BP 127/62
--- NOTE | 2017-04-28 15:24 | REP ---
Clinical: Bacterial peritonitis. Technique: PA and lateral. Comparison: 11/13/2016. Findings: Bibasilar atelectasis/infiltrates and small pleural effusions are appreciated (right greater than left). Mediastinum and cardiac silhouette are stable. Underlying chronic interstitial changes noted. No pneumothorax. Skeletal structures are intact. Impression: Acute bibasilar infiltrates and pleural effusions consistent with pneumonia. Signed by Farhan Berman MD 04/28/2017 03:05 P
[2017-04-28] MEDS: VITAMIN D 1,000 INTERNATIONAL UNITS TABLET PO SCH (21:12)
[2017-04-28] MEDS: MAGNESIUM OXIDE 400 MG TAB (MAG-OX) PO SCH (21:12)
[2017-04-28] MEDS: TAMSULOSIN 0.4 MG CAP PO SCH (21:12)
[2017-04-28 22:00] VITALS: BP 143/71
[2017-04-29 06:00] VITALS: BP 117/64
[2017-04-29 07:02] LABS: BASO % 0.6 % (0.0-1.0); EOS # 0.6 10^3/uL (0.0-0.50); EOS % 8.1 % (0.0-3.0); IMMATURE GRANULOCYTE % 0.8 % (0-0); LYMPH # 0.8 10^3/uL (1.5-4.5); LYMPH % 11.7 % (24.0-44.0); MEAN CORPUSCULAR HEMOGLOBIN 31.3 pg (27.0-33.0); MEAN CORPUSCULAR HGB CONC 31.5 g/dl (32.0-36.5); MEAN CORPUSCULAR VOLUME 99.4 fl (80.0-96.0); MONO # 0.7 10^3/uL (0.0-0.8); NEUTROPHILS # 4.9 10^3/uL (1.8-7.7); NEUTROPHILS % 68.8 % (36.0-66.0); PLATELET COUNT, AUTOMATED 159 10^3/uL (150-450); RED CELL DISTRIBUTION WIDTH 14.3 % (11.5-14.5); WHITE BLOOD COUNT 7.1 10^3/uL (4.0-10.0)
[2017-04-29 07:16] LABS: CALCIUM LEVEL 8.1 MG/DL (8.8-10.2); CREATININE FOR GFR 8.25 MG/DL (0.70-1.30); GLOMERULAR FILTRATION RATE 6.7 (>42); POTASSIUM SERUM 4.2 MEQ/L (3.5-5.1)
[2017-04-29] MEDS: LANTHANUM CARBONATE 500 MG CHEW TABLET PO SCH ×3 (07:43→17:38)
[2017-04-29] MEDS: EUCERIN 120GM CREAM TOP SCH ×2 (09:00→21:13)
--- NOTE | 2017-04-29 09:18 | IPN ---
DATE OF SERVICE: 04/28/2017 SUBJECTIVE: Patient was seen and examined at the bedside today morning. Patient reports that he got enemas and MiraLAX yesterday. He moved his bowels. His pain in abdomen is getting better. His peritonitis is also improving. White cell count is coming down. Patient is afebrile and hemodynamically stable. REVIEW OF SYSTEMS: Patient denies any fever, chills, rigors, headache, chest pain, shortness of breath. He reports mild abdominal pain and he reports constipation revealed yesterday. Rest of review of system is negative. OBJECTIVE: VITAL SIGNS: Temperature is 97.7 degrees Fahrenheit. Blood pressure is 128/65. Pulse is 69. Respiratory rate of 19. Saturating 96% on nasal cannula at 2 liters. INTAKE AND OUTPUT: Urine output is not recorded well. He is 100 mL negative so far, since last night with peritoneal dialysis. Weight on the bed scale is 89.9 kg. PHYSICAL EXAMINATION: GENERAL: Patient is awake, alert, oriented times three, laying in bed, in no apparent distress. HEAD/NECK EXAM: Extraocular muscles intact. Pupils equally round and reactive to light. Mucous membranes are moist. Neck is supple. There is no jugular venous distention (JVD). CARDIOVASCULAR: S1, S2, regular rate. No murmur, rub or gallop. RESPIRATORY: Chest is clear to auscultation bilaterally. Bilateral equal air entry. No rales or rhonchi. ABDOMEN: Is soft, mildly tender to deep palpation in the suprapubic region. Patient has a left lower quadrant peritoneal dialysis catheter. No drainage at the exit site. MUSCULOSKELETAL: No clubbing or cyanosis. Pulses are 2+. CENTRAL NERVOUS SYSTEM (ASSISTANT MANAGER): No focal neurological deficit. Power is 5/5 in all extremities. SKIN: No rashes or ulcers. PSYCHIATRIC: Normal mood and affect. LABORATORY REVIEW: CBC showed a WBC 8.1, hemoglobin 9.7, platelets are 147. Peritoneal fluid: WBC count is 22. BMP done today showed sodium 134, potassium 3.9, chloride 96, bicarbonate is 30, BUN 77, creatinine is 8.3, calcium 8.1. Microbiology: Peritoneal fluid with Streptococcus viridans and 1 of 2 blood cultures drawn on 04/25/2017 preliminary is growing gram-positive cocci in pairs and clusters. IMAGING: A chest x-ray was done today morning, which showed acute bibasilar infiltrates. CURRENT INPATIENT MEDICATIONS: Patient's medications were all reviewed by me. Patient is currently on IV Rocephin. IV vancomycin, intraperitoneal gentamicin and IV meropenem have been stopped at this time. There is no other change in the medications today as compared with yesterday. ASSESSMENT: 77-year-old male with past medical history of end-stage renal disease on peritoneal dialysis secondary to polycystic kidney disease admitted this time because of acute peritonitis. PLAN: 1. Acute peritonitis. Patient's peritoneal fluid cultures are growing Staphylococcus viridans. Antibiotic was changed to ceftriaxone. Patient has to finish a total of 2 weeks of antibiotics for peritonitis. 2. Positive blood cultures. Patient has 1 out of 2 positive blood cultures. Preliminary report is showing it is gram-positive cocci in pair and clusters. Blood culture also shows strep viridans. Given history of patient's pacing wires in the heart, this will be treated as infective endocarditis with 6 weeks of IV antibiotics. 3. End-stage renal disease on peritoneal dialysis. Continue current peritoneal dialysis (PD) regimen, six exchanges in 24 hours, 2 liters each, all 1.5%. 3. Anemia secondary to end-stage renal disease. Patient's hemoglobin is 9.6. Continue current dose of Aranesp 100 mcg subcu on Wednesday. 4. Constipation. Patient was given MiraLAX and soap suds enemas. He moved his bowels. His constipation is relieved today.
[2017-04-29] MEDS ORDERED: BISACODYL 5 MG TAB PO PRN (09:30)
[2017-04-29] MEDS ORDERED: BISACODYL 10 MG SUPP PR PRN (09:30)
[2017-04-29] MEDS: ISONIAZID 300 MG TAB PO SCH (10:18)
[2017-04-29] MEDS: PANTOPRAZOLE 40MG TAB (PROTONIX) PO SCH (10:18)
[2017-04-29] MEDS: ASPIRIN 81 MG ENTERIC TAB PO SCH (10:18)
[2017-04-29] MEDS: CEFTRIAXONE SOD 1 GM in APPROPRIATE DILUENT 1 EA IV SCH (10:18)
[2017-04-29] MEDS: AMIODARONE 200 MG TAB (PACERONE) PO SCH ×2 (10:19→21:11)
[2017-04-29] MEDS: CALCITRIOL 0.25 MCG CAP (S0169) PO SCH (10:19)
[2017-04-29] MEDS: SENOKOT S TAB PO SCH ×2 (10:19→21:11)
[2017-04-29] MEDS: POTASSIUM CHLORIDE 10 MEQ SR TABLET PO SCH (10:19)
--- NOTE | 2017-04-29 10:52 | IPNPDOC ---
Date Seen The patient was seen on 04/29/17. Progress Note SUBJECTIVE: Patient is a 77-year-old male with bacterial peritonitis. He is evaluated at bedside this morning. He denies any acute complaints. States that he is past due for his peritoneal exchange and morning medications. He denies shortness of breath, chest pain, fever, night sweats, chills. Prescribed Eucerin cream for patient upper extremity which he states makes his arms red. Blood culture x1 is positive for Micrococcus luteus. Peritoneal culture was positive for Streptococcus viridans. OBJECTIVE PHYSICAL EXAMINATION: VITAL SIGNS: Please see below. GENERAL: Elderly male, wearing hospital gown, appears stated age, no acute distress HEENT: Atraumatic, normocephalic, PERRL, EOMI, oral mucosa appears pink and moist, nasal septum appears midline, nasal cannula in place, nares are patent CARDIOVASCULAR: Regular rate, grade III/ holosystolic murmur appreciated most prominently over the apex RESPIRATORY: Crackles noted bilaterally in the bases; lung sounds clear on the right middle and upper lobes and left upper lobe. ABDOMINAL: Soft, non-tender, non-distended, bowel sounds appreciated, no organomegaly appreciated, no guarding, no rebound, peritoneal catheter appreciated in the lower quadrant near midline with associated scar tissue, no bleeding or edema EXTREMITIES: Radial and posterior tibial pulses appreciated, equal, symmetrical , +2, multiple excoriations appreciated on the lower extremities bilaterally, psoriatic appearing skin noted on the upper extremities bilaterally, upper extremities are some erythematous; however, the plaques previously appreciated seem to be improved NEUROLOGICAL: CN II-XII grossly intact PSYCHOLOGICAL: Alert and conversant, pleasant LABORATORY DATA: Please see below. MICROBIOLOGY: Please see below. DVT prophylaxis ordered?: Knee high sequential compression ASSESSMENT AND PLAN: This is a 77-year-old male with acute peritonitis. PROBLEMS: 1. Acute bacterial peritonitis due to peritoneal dialysis: Continue to appreciate the valued input from Nephrology. Based on peritoneal culture results will continue with IV Rocephin; at time of discharge patient should be continued on two weeks of oral cephalosporin. Continue with exchange transfusions, six transfusions of 2L each, totaling 12L daily; based on peritoneal cell count, no anti-fungal therapy recommended. Blood culture is positive for Micrococcus luteus, which is associated with catheter-associated infections. Will obtain another set of blood cultures, 20 minutes apart. 2. ESRD: Continue peritoneal dialysis as described above. 3. Constipation: Received soap-suds enema; bowel movement recorded. Continue wtih Dulcolax, Senokot, and Magnesium. 4. Secondary hyperparathyroidism: Likely secondary to ESRD. Continue with Calcitriol. 5. 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 6. 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 7. Anemia: Likely secondary to ESRD. Continue with Aranesp. 8 Coronary artery disease: Continue with ASA. 9. Benign prostatic hypertrophy: Continue with Tamsulosin. 10. Latent tuberculosis: Managed by infectious disease in [place]. Continue with INH; requires 3 more months of therapy. 11. Chronic atrial fibrillation: Rate controlled. Continue with Amiodarone. 12. Pain or fever: Continue with Acetaminophen, as needed. DISPOSITION: Admitted to the medical-surgical unit. Continue with daily peritoneal fluid analysis and peritoneal exchanges. Continue to appreciated nephrology's input and assistance. Obtaining second set of blood cultures. VS, I&O, 24H, [facility] Vital Signs/I&O Vital Signs Date Time Temp Pulse Resp B/P (MAP) Pulse Ox O2 Delivery O2 Flow Rate FiO2 04/29/17 06:00 98.3 77 17 117/64 (81) 97 Nasal Cannula 2.0 I&O- Last 24 Hours up to 6 AM 04/30/17 06:00 Intake Total 0 ml Output Total 0 ml Balance 0 ml Laboratory Data 24H LABS Laboratory Tests 2 04/29/17 06:42: Immature Granulocyte % (Auto) 0.8H, White Blood Count 7.1, Red Blood Count 3.10L , Hemoglobin 9.7L, Hematocrit 30.8L, Mean Corpuscular Volume 99.4H, Mean Corpuscular Hemoglobin 31.3, Mean Corpuscular Hemoglobin Concent 31.5L, Red Cell Distribution Width 14.3, Platelet Count 159, Neutrophils (%) (Auto) 68.8H, Lymphocytes (%) (Auto) 11.7L, Monocytes (%) (Auto) 10.0H, Eosinophils (%) (Auto ) 8.1H, Basophils (%) (Auto) 0.6, Neutrophils # (Auto) 4.9, Lymphocytes # (Auto ) 0.8L, Monocytes # (Auto) 0.7, Eosinophils # (Auto) 0.6H, Basophils # (Auto) 0.0, Immature Granulocyte # (Auto) 0.1H, Nucleated Red Blood Cells % (auto) 0.0 , Anion Gap 9, Glomerular Filtration Rate 6.7L, Blood Urea Nitrogen 68H, Creatinine 8.25H, Sodium Level 134L, Potassium Level 4.2, Chloride Level 96L, Carbon Dioxide Level 29, Calcium Level 8.1L CBC/BMP Laboratory Tests 04/29/17 06:42 Red Blood Count 3.10 L, Mean Corpuscular Volume 99.4 H, Mean Corpuscular Hemoglobin 31.3, Mean Corpuscular Hemoglobin Concent 31.5 L, Red Cell Distribution Width 14.3, Neutrophils (%) (Auto) 68.8 H, Lymphocytes (%) (Auto) 11.7 L, Monocytes (%) (Auto) 10.0 H, Eosinophils (%) (Auto) 8.1 H, Basophils (% ) (Auto) 0.6, Neutrophils # (Auto) 4.9, Lymphocytes # (Auto) 0.8 L, Monocytes # (Auto) 0.7, Eosinophils # (Auto) 0.6 H, Basophils # (Auto) 0.0, Calcium Level 8.1 L Microbiology Microbiology 04/25/17 Blood Culture - Final, Complete Micrococcus Luteus 04/25/17 Blood Culture - Preliminary, Resulted No Growth after 72 hours. All specime... 04/25/17 Body Fluid Culture - Final, Complete Streptococcus Viridans Group JD ROSALES DO Apr 29, 2017 10:52
[2017-04-29 11:37] LABS: RBC BODY FLUID < 2 10^3/uL (<2); WBC BODY FLUID 20 /uL (0-10)
[2017-04-29 11:38] LABS: PERITONEAL FL COLOR COLORLESS (COLORLESS)
[2017-04-29 11:39] LABS: BF DIFF IF INDICATED? YES (NO)
[2017-04-29] MEDS ORDERED: VANCOMYCIN 1000 MG/20 ML VIAL (J3370) IP ONE ×2 (13:15→22:00)
[2017-04-29 14:00] VITALS: BP 123/66
[2017-04-29] MEDS: MIRALAX *UNIT DOSE* 17GM PACKET PO PRN (16:08)
[2017-04-29] MEDS: MAGNESIUM OXIDE 400 MG TAB (MAG-OX) PO SCH (21:12)
[2017-04-29] MEDS: VITAMIN D 1,000 INTERNATIONAL UNITS TABLET PO SCH (21:12)
[2017-04-29] MEDS: TAMSULOSIN 0.4 MG CAP PO SCH (21:12)
[2017-04-29 22:00] VITALS: BP 133/66
[2017-04-30 06:00] VITALS: BP 125/76
[2017-04-30 06:05] LABS: BASO % 0.5 % (0.0-1.0); EOS # 0.7 10^3/uL (0.0-0.50); EOS % 9.3 % (0.0-3.0); IMMATURE GRANULOCYTE % 1.3 % (0-0); LYMPH # 0.9 10^3/uL (1.5-4.5); LYMPH % 11.5 % (24.0-44.0); MEAN CORPUSCULAR HEMOGLOBIN 30.9 pg (27.0-33.0); MEAN CORPUSCULAR HGB CONC 31.6 g/dl (32.0-36.5); MEAN CORPUSCULAR VOLUME 97.5 fl (80.0-96.0); MONO # 0.7 10^3/uL (0.0-0.8); MONO % 8.8 % (0.0-5.0); NEUTROPHILS # 5.3 10^3/uL (1.8-7.7); NEUTROPHILS % 68.6 % (36.0-66.0); PLATELET COUNT, AUTOMATED 166 10^3/uL (150-450); RED CELL DISTRIBUTION WIDTH 14.2 % (11.5-14.5); WHITE BLOOD COUNT 7.7 10^3/uL (4.0-10.0)
[2017-04-30 06:21] LABS: CALCIUM LEVEL 8.2 MG/DL (8.8-10.2); CREATININE FOR GFR 8.14 MG/DL (0.70-1.30); GLOMERULAR FILTRATION RATE 6.8 (>42)
[2017-04-30 07:26] LABS: RBC BODY FLUID < 2 10^3/uL (<2); WBC BODY FLUID 3 /uL (0-10)
[2017-04-30] MEDS: LANTHANUM CARBONATE 500 MG CHEW TABLET PO SCH ×3 (07:26→16:56)
[2017-04-30 07:27] LABS: BF DIFF IF INDICATED? NO (NO); PERITONEAL FL COLOR COLORLESS (COLORLESS)
[2017-04-30] MEDS: AMIODARONE 200 MG TAB (PACERONE) PO SCH ×2 (09:00→21:09)
[2017-04-30] MEDS: CALCITRIOL 0.25 MCG CAP (S0169) PO SCH (09:14)
[2017-04-30] MEDS: FEBUXOSTAT 40 MG TABLET (ULORIC) PO SCH (09:14)
[2017-04-30] MEDS: ASPIRIN 81 MG ENTERIC TAB PO SCH (09:15)
[2017-04-30] MEDS: SENOKOT S TAB PO SCH ×2 (09:15→21:09)
[2017-04-30] MEDS: POTASSIUM CHLORIDE 10 MEQ SR TABLET PO SCH (09:15)
[2017-04-30] MEDS: ISONIAZID 300 MG TAB PO SCH (09:15)
[2017-04-30] MEDS: CEFTRIAXONE SOD 1 GM in APPROPRIATE DILUENT 1 EA IV SCH (09:16)
[2017-04-30] MEDS: EUCERIN 120GM CREAM TOP SCH ×2 (09:17→21:09)
--- NOTE | 2017-04-30 10:34 | IPN ---
DATE OF SERVICE: 04/29/2017 MR. Cordova is seen this morning on his bedside. He has known history of end-stage renal disease secondary to polycystic kidneys and has been on peritoneal dialysis. He was admitted due to sepsis and found to have acute bacterial peritonitis. In addition, he also had positive blood culture and there was a concern about possibility of endocarditis as the patient has a pacemaker with wires. He has been receiving intraperitoneal and intravenous antibiotics. REVIEW OF SYSTEMS: He denies any fever or chills. He remains weak but not in any acute distress. Ears, nose and throat are unremarkable. He denies any headache at present. Cardiovascular system is significant for a history of hypotension and congestive heart failure. Previously he was known to have low ejection fraction. At present he denies any dyspnea or chest pain. He does have a pacemaker in place. Respiratory system is negative for cough or hemoptysis. GI system is negative for nausea, vomiting or diarrhea. He is currently being treated for bacterial peritonitis. system is negative for dysuria or hematuria. He does have polycystic kidneys. Endocrine system is negative for diabetes or thyroid problems. Hematologic system is significant for chronic anemia related to end-stage renal disease. Psychosocial system negative for depression or anxiety. Neurological system is negative for seizures or stroke. Skin is significant for psoriasis and rash on his upper extremities. PHYSICAL EXAMINATION: Temperature 98.3 degrees Fahrenheit, heart rate 78 per minute and respiratory rate 18 per minute. Blood pressure 117/64 mmHg and oxygen saturation 97% on 2 liters oxygen. Head is atraumatic. Pupils are equal and reactive to light and sclera is anicteric. Ears, nose and throat are unremarkable. Neck is supple and thyroid enlargement is not noted. His neck veins are mildly distended. There is no oral thrush or ulcers. Heart sounds are regular with systolic murmur grade 2/6. There is no pericardial friction rub. Lungs have few basilar crackles bilaterally. Abdomen: Soft, distended with peritoneal dialysis fluid. Dialysis catheter is intact. Bowel sounds are normal. Extremities have no cyanosis or clubbing. Bilateral upper extremity rash and edema is noted. Skin: Has pleuritic rash and some erythema on upper extremities. Neurologically he is awake, alert and oriented times three. LABORATORY DATA: His peritoneal fluid culture was positive for strep viridans while one set of blood culture has come back positive for micrococcus but the other one is still negative. His WBC count is 7.1, hemoglobin 9.7 and hematocrit 30.8. Sodium 134 and potassium 4.2. BUN 68 and creatinine 8.25. Peritoneal dialysis cell count showed 20 WBCs and less than 2 RBCs. PROBLEMS: 1. Bacterial peritonitis. The patient remains on antibiotics intraperitoneally. We will give him a dose of vancomycin again. His vancomycin level was 12.5 on April 27. 2. Bacteremia, most likely this was a contaminant as blood cultures did not show streptococcus. He has been on intravenous Rocephin and we will continue for a couple of more days and then stop it. 3. End-stage renal disease. The patient remains on peritoneal dialysis and will continue with the same. At present, six exchanges per day are being performed. 4. Congestive heart failure/hypervolemia. His volume status is slightly decompensated. We will switch his peritoneal dialysis to 20.5% and 1.5% bags alternatively. 5. Anemia. The patient remains on Aranesp 100 mcg once a week which will be continued.
--- NOTE | 2017-04-30 10:53 | IPNPDOC ---
Date Seen The patient was seen on 04/30/17. Progress Note SUBJECTIVE: Patient is a 77-year-old male with bacterial peritonitis. He is evaluated at bedside this morning. He denies any acute complaints. Denies fever, chest pain, night sweats, chills. States that the lotion to his arms for psoriasis has improved the pruritis. Nephrology has infused IV Vancomycin via his peritoneal catheter. Blood cultures x1 positive for Micrococcus luteus and peritoneal culture positive for Streptococcus viridans. OBJECTIVE PHYSICAL EXAMINATION: VITAL SIGNS: Please see below. GENERAL: Elderly male, wearing hospital gown, appears stated age, no acute distress HEENT: Atraumatic, normocephalic, PERRL, EOMI, oral mucosa appears pink and moist, nasal septum appears midline, nasal cannula in place, nares are patent CARDIOVASCULAR: Regular rate, grade III/ holosystolic murmur appreciated most prominently over the apex RESPIRATORY: Crackles noted bilaterally in the bases; lung sounds clear on the right middle and upper lobes and left upper lobe. ABDOMINAL: Soft, non-tender, non-distended, bowel sounds appreciated, no organomegaly appreciated, no guarding, no rebound, peritoneal catheter appreciated in the lower quadrant near midline with associated scar tissue, no bleeding or edema EXTREMITIES: Radial and posterior tibial pulses appreciated, equal, symmetrical , +2, multiple excoriations appreciated on the lower extremities bilaterally, erythematous, psoriatic plaques noted on the upper extremities bilaterally, AV fistula appreciated in right antecubital region NEUROLOGICAL: CN II-XII grossly intact PSYCHOLOGICAL: Alert and conversant, pleasant LABORATORY DATA: Please see below. MICROBIOLOGY: Please see below. DVT prophylaxis ordered?: Knee high sequential compression ASSESSMENT AND PLAN: This is a 77-year-old male with acute peritonitis. PROBLEMS: 1. Acute bacterial peritonitis due to peritoneal dialysis: Continue to appreciate the valued input from Nephrology. Per recommendations, IV Vancomycin has been infused into peritoneal catheter and should be done every 5 days for 2 weeks. Continue with exchange transfusions, six transfusions of 2L each, totaling 12L daily; based on peritoneal cell count, no anti-fungal therapy recommended. Blood culture is positive for Micrococcus luteus, which is associated with catheter-associated infections. Recommendations included treatment with Vancomycin, PCN, Gentamicin, or Clindamycin. Will obtain another set of blood cultures, 20 minutes apart. Per verbal discussion with bacteriology, repeat blood cultures have been negative. 2. ESRD: Continue peritoneal dialysis as described above. 3. Constipation: Received soap-suds enema; bowel movement recorded. Continue with Dulcolax, Senokot, and Magnesium. 4. Secondary hyperparathyroidism: Likely secondary to ESRD. Continue with Calcitriol. 5. 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 6. 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 7. Anemia: Likely secondary to ESRD. Continue with Aranesp. 8 Coronary artery disease: Continue with ASA. 9. Benign prostatic hypertrophy: Continue with Tamsulosin. 10. Latent tuberculosis: Managed by infectious disease in [place]. Continue with INH; requires 3 more months of therapy. 11. Chronic atrial fibrillation: Rate controlled. Continue with Amiodarone. 12. Pain or fever: Continue with Acetaminophen, as needed. DISPOSITION: Admitted to the medical-surgical unit. Continue with daily peritoneal fluid analysis and peritoneal exchanges. Continue to appreciated nephrology's input and assistance. Second set of blood cultures are negative. Potential discharge in 24 hours. VS, I&O, 24H, [facility] Vital Signs/I&O Vital Signs Date Time Temp Pulse Resp B/P (MAP) Pulse Ox O2 Delivery O2 Flow Rate FiO2 04/30/17 06:00 98.2 75 18 125/76 (92) 94 Room Air 04/29/17 21:00 2.0 I&O- Last 24 Hours up to 6 AM 05/01/17 06:00 Intake Total 2000 ml Output Total 2620 ml Balance -620 ml Laboratory Data 24H LABS Laboratory Tests 2 04/29/17 11:00: Body Fluid WBC (Auto) 20H, Body Fluid RBC (Auto) < 2, Body Fluid Mononuclear Cells % Auto 85.0H, Fluid Polymorphonuclear Cell % Auto 15.0H, Peritoneal Fluid Source PERITONEAL, Peritoneal Fluid Color COLORLESS, Peritoneal Fluid Appearance CLEAR 04/30/17 05:51: Immature Granulocyte % (Auto) 1.3H, White Blood Count 7.7, Red Blood Count 3.24L , Hemoglobin 10.0L, Hematocrit 31.6L, Mean Corpuscular Volume 97.5H, Mean Corpuscular Hemoglobin 30.9, Mean Corpuscular Hemoglobin Concent 31.6L, Red Cell Distribution Width 14.2, Platelet Count 166, Neutrophils (%) (Auto) 68.6H, Lymphocytes (%) (Auto) 11.5L, Monocytes (%) (Auto) 8.8H, Eosinophils (%) (Auto) 9.3H, Basophils (%) (Auto) 0.5, Neutrophils # (Auto) 5.3, Lymphocytes # (Auto) 0.9L, Monocytes # (Auto) 0.7, Eosinophils # (Auto) 0.7H, Basophils # (Auto) 0.0 , Immature Granulocyte # (Auto) 0.1H, Nucleated Red Blood Cells % (auto) 0.0, Anion Gap 7L, Glomerular Filtration Rate 6.8L, Blood Urea Nitrogen 66H, Creatinine 8.14H, Sodium Level 135L, Potassium Level 4.0, Chloride Level 97L, Carbon Dioxide Level 31, Calcium Level 8.2L 04/30/17 06:27: Body Fluid WBC (Auto) 3, Body Fluid RBC (Auto) < 2, Peritoneal Fluid Source PERITONEAL, Peritoneal Fluid Color COLORLESS, Peritoneal Fluid Appearance CLEAR CBC/BMP Laboratory Tests 04/30/17 05:51 Red Blood Count 3.24 L, Mean Corpuscular Volume 97.5 H, Mean Corpuscular Hemoglobin 30.9, Mean Corpuscular Hemoglobin Concent 31.6 L, Red Cell Distribution Width 14.2, Neutrophils (%) (Auto) 68.6 H, Lymphocytes (%) (Auto) 11.5 L, Monocytes (%) (Auto) 8.8 H, Eosinophils (%) (Auto) 9.3 H, Basophils (%) (Auto) 0.5, Neutrophils # (Auto) 5.3, Lymphocytes # (Auto) 0.9 L, Monocytes # ( Auto) 0.7, Eosinophils # (Auto) 0.7 H, Basophils # (Auto) 0.0, Calcium Level 8.2 L Microbiology Microbiology 04/29/17 Blood Culture, Received Pending 04/29/17 Blood Culture, Received Pending 04/25/17 Blood Culture - Final, Complete Micrococcus Luteus 04/25/17 Blood Culture - Final, Complete NO GROWTH AFTER 5 DAYS 04/25/17 Body Fluid Culture - Final, Complete Streptococcus Viridans Group BOBBYJD Apr 30, 2017 10:53
[2017-04-30 14:00] VITALS: BP 124/60
[2017-04-30] MEDS: TAMSULOSIN 0.4 MG CAP PO SCH (21:09)
[2017-04-30] MEDS: MAGNESIUM OXIDE 400 MG TAB (MAG-OX) PO SCH (21:09)
[2017-04-30] MEDS: VITAMIN D 1,000 INTERNATIONAL UNITS TABLET PO SCH (21:09)
[2017-04-30 22:00] VITALS: BP 104/57
--- NOTE | 2017-05-01 05:32 | IPN ---
DATE OF SERVICE: 04/30/2017 Mr. Cordova is seen this morning on his bedside. He continues to have complaint of swelling on his upper extremities, but denies any dyspnea or chest pain. The patient denies any nausea, vomiting, abdominal pain or diarrhea. He is tolerating his peritoneal dialysis very well. He reports that he had good appetite and ate well this morning. He was initially admitted with bacterial peritonitis and then there was a question of bacteremia as one of the blood cultures came back positive. However, it turned out to be a contaminant as a second blood culture was negative and two more sets of cultures were drawn yesterday which have been negative so far. The patient was given intraperitoneal vancomycin and gentamicin last evening to continue his treatment for peritonitis. PHYSICAL EXAMINATION: Temperature 98.2 degrees Fahrenheit, heart rate 75 per minute and respiratory rate 18 per minute. Blood pressure 125/76 mmHg and oxygen saturation 94% on room air. His head is atraumatic. Neck is supple and without jugular venous distention (JVD) or thyroid enlargement. Pupils equal and reactive to light and sclera is anicteric. There is no oral thrush or ulcers. Heart sounds are regular and lungs sound clear to auscultation. Abdomen soft and nontender. Peritoneal dialysis catheter is in place. Bowel sounds are normal. Extremities have no cyanosis or clubbing. Right arm arteriovenous (AV) fistula is patent. Skin has rash on both upper extremities. Neurologically, he is awake, alert and oriented times three. Today's labs show WBC count 7.7, hemoglobin 10.0 and hematocrit 31.6. Platelets 166. Sodium 135 and potassium 4.0. BUN 66 and creatinine 8.12. PROBLEMS: 1. Bacterial peritonitis. The patient has been doing very well. He received one dose of vancomycin and we will continue with intraperitoneal vancomycin to complete 2 weeks of therapy. 2. Bacteremia. Most likely a contaminant. His intravenous antibiotic can be stopped from a renal standpoint. Two more sets of blood cultures are negative so far. 3. End-stage renal disease. The patient will continue with peritoneal dialysis and he is getting six exchanges per day. He does have some peripheral edema, so we are using 2.5% solution for all exchanges today. 4. History of ventricular tachycardia. The patient remains stable on amiodarone 200 mg twice a day. 5. Anemia. His anemia has been stable and he receives Aranesp 100 mcg once a week. 6. Disposition. From a renal standpoint, the patient can be discharged to home and followup at outpatient dialysis clinic.
[2017-05-01 05:56] LABS: BASO % 0.5 % (0.0-1.0); EOS # 0.9 10^3/uL (0.0-0.50); EOS % 11.2 % (0.0-3.0); IMMATURE GRANULOCYTE % 1.6 % (0-0); LYMPH # 1.1 10^3/uL (1.5-4.5); LYMPH % 13.1 % (24.0-44.0); MEAN CORPUSCULAR HEMOGLOBIN 31.3 pg (27.0-33.0); MEAN CORPUSCULAR VOLUME 97.9 fl (80.0-96.0); MONO # 0.7 10^3/uL (0.0-0.8); MONO % 8.8 % (0.0-5.0); NEUTROPHILS # 5.4 10^3/uL (1.8-7.7); NEUTROPHILS % 64.8 % (36.0-66.0); PLATELET COUNT, AUTOMATED 175 10^3/uL (150-450); RED CELL DISTRIBUTION WIDTH 14.4 % (11.5-14.5); WHITE BLOOD COUNT 8.3 10^3/uL (4.0-10.0)
[2017-05-01 06:00] VITALS: BP 107/56
[2017-05-01 06:21] LABS: CALCIUM LEVEL 8.6 MG/DL (8.8-10.2); CREATININE FOR GFR 8.45 MG/DL (0.70-1.30); GLOMERULAR FILTRATION RATE 6.5 (>42); POTASSIUM SERUM 4.2 MEQ/L (3.5-5.1)
[2017-05-01] MEDS: LANTHANUM CARBONATE 500 MG CHEW TABLET PO SCH (06:55)
[2017-05-01 07:03] LABS: RBC BODY FLUID < 2 10^3/uL (<2)
[2017-05-01 07:04] LABS: BF DIFF IF INDICATED? NO (NO); PERITONEAL FL COLOR COLORLESS (COLORLESS); WBC BODY FLUID 4 /uL (0-10)
[2017-05-01] MEDS: SENOKOT S TAB PO SCH (08:32)
[2017-05-01] MEDS: ASPIRIN 81 MG ENTERIC TAB PO SCH (08:33)
[2017-05-01] MEDS: POTASSIUM CHLORIDE 10 MEQ SR TABLET PO SCH (08:33)
[2017-05-01] MEDS: AMIODARONE 200 MG TAB (PACERONE) PO SCH (08:33)
[2017-05-01] MEDS: ISONIAZID 300 MG TAB PO SCH (08:33)
[2017-05-01] MEDS: CALCITRIOL 0.25 MCG CAP (S0169) PO SCH (08:33)
[2017-05-01] MEDS: EUCERIN 120GM CREAM TOP SCH (08:34)
--- NOTE | 2017-05-01 12:05 | DS.PDOC ---
Discharge Summary General Date of Admission Apr 25, 2017 at 04:50 Date of Discharge 05/01/2017 Attending Physician: MALINA SPRINGER MD Specialist/Consultants Involve: KARINE HANNON MD Discharge Summary PROCEDURES PERFORMED DURING STAY: Transthoracic echocardiogram CONCLUSIONS: Moderate calcific aortic stenosis with mild insufficiency. Could not visualize a pedunculated vegetation but could not rule out a sessile vegetation with certainty. Normal appearing and functioning mitral valve. Other valvular structures also appeared to be normal. Borderline hypertrophied and at least mildly dilated left ventricle with localized inferolateral wall motion abnormality in keeping with prior myocardial injury. Preserved global resting systolic function. Moderately dilated left atrium with Doppler evidence of an impairment of LV diastolic function with a current estimated mean left atrial pressure upper limits of normal to slightly increased. Moderately dilated right heart chambers with Doppler evidence of at least moderate pulmonary retention. Normal IVC size and collapse against an elevated central venous pressure at this time DISCHARGE DIAGNOSES: 1. PD peritonitis. 2. End stage renal disease on peritoneal dialysis. 3. Hypokalemia. 4. Anemia. 5. Constipation. 6. Hyperphosphatemia. 7. Secondary hyperparathyroidism. 8. Chronic gout. 9. Mineral bone disease. 10. Latent tuberculosis. 11. Benign prostatic hyperplasia. 12. Paroxysmal Atrial fibrillation. 13. Coronary artery disease. 14. History of frequent runs of nonsustained ventricular tachycardia tach and systolic congestive heart failure now resolved after amiodarone treatment. 15. 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 16. Pulmonary hypertension 17. Aortic stenosis. 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 COMPLICATIONS/CHIEF COMPLAINT: Bacterial Peritonitis. HISTORY OF PRESENT ILLNESS: Mr. Cordova is a 77-year-old male who was at a sleep study in our facility when he woke up suddenly in the middle of the night with screaming of abdominal pain. Onset was sudden with no apparent reason. The patient came down to the emergency department for evaluation. The patient stated that he believes that he is having bacterial peritonitis, although he has never had it before. In discussion with his wellfield technician, they told him that when he would get bacterial peritonitis that this is the way that it would present itself. The patient is obviously at risk at bacterial peritonitis, as the patient undergoes peritoneal dialysis. The patient is here in the emergency department. He noted that his family is not yet aware of his presence in the emergency department. The patient notes that his pain is diffuse. He ranks it as "very bad." He notes that he has not been feeling any better. The patient notes that the pain is present when he tries to move. HOSPITAL COURSE: Patient was admitted for acute bacterial peritonitis. Abdominal fluid was sent for analysis. He was started on Meropenem. Nephrology was consulted (see consultation below). Home medications were continued. He was given Morphine as needed for pain. For constipation, he was given Dulcolax, Senokot S, MiraLax, and eventually a soap-suds enema. This relieved the constipation. Patient appeared to have an underlying skin disorder , which he says is psoriasis. Provided Eucerin cream to be applied to upper extremities which alleviated the patient's pruritis. It was recommended that patient follow-up with primary care provider for further management of questionable psoriasis. Patient improved clinically, and although a guarded prognosis, patient was stable at time of discharge. Nephrology consult: Empirically started on IV Meropenem 1g daily as well as IP Gentamicin 80mg and then 40mg daily. Continue peritoneal cell count with follow -up blood (1x Micrococcus luteus; repeat blood cultures were negative)) and peritoneal cultures (Streptococcus viridans). If peritoneal cell count remain elevated then anti-fungal therapy may be needed (cell count decreased appropriately with therapy). Antibiotics were adjusted to IV Ceftriaxone due to culture results. Antibiotic therapy will need to be continued for 2 weeks. Based on patient's pacemaker and 1x positive blood culture it was suggested that antibiotic therapy may need to be continued for 6 weeks to prevent against endocarditis. Updated blood cultures were both negative. Peritoneal dialysis started on five exchanges fo 2L each, all 1.5%. Adjusted based on worsening CHF. Dialysis switched to 2.5%. IP Vancomycin instilled every 5 days and will need to continue for 2 weeks of therapy. Continued Calcitriol for secondary hyperparathyroidism. Continued with Uloric for chronic gout. Continued with Lanthanum for hyperphosphatemia due to mineral bone disease secondary to chronic kidney disease. Initiated low dose Potassium as hypokalemia developed secondary to ESRD and peritoneal dialysis. Received Aranesp due to anemia secondary to ESRD. Patient continued with Isoniazid due to latent TB. Will need to continue with INH for 3 more months of therapy. Constipation developed and patient was given MiraLax and a soap suds enema. DISCHARGE MEDICATIONS: Please see below. ALLERGIES: Please see below. PHYSICAL EXAMINATION ON DISCHARGE: VITAL SIGNS: Please see below. GENERAL: Elderly male, wearing hospital gown, appears stated age, no acute distress HEENT: Atraumatic, normocephalic, PERRL, EOMI, oral mucosa appears pink and moist, nasal septum appears midline, nasal cannula in place, nares are patent CARDIOVASCULAR: Regular rate, grade III/ holosystolic murmur appreciated most prominently over the apex RESPIRATORY: Crackles noted bilaterally in the bases; lung sounds clear on the right middle and upper lobes and left upper lobe. ABDOMINAL: Soft, non-tender, non-distended, bowel sounds appreciated, no organomegaly appreciated, no guarding, no rebound, peritoneal catheter appreciated in the lower quadrant near midline with associated scar tissue, no bleeding or edema EXTREMITIES: Radial and posterior tibial pulses appreciated, equal, symmetrical , +2, multiple excoriations appreciated on the lower extremities bilaterally, erythematous, psoriatic plaques noted on the upper extremities bilaterally, AV fistula appreciated in right antecubital region SKIN: Multiple areas of circular erythema appreciated on upper extremities, lower extremities have multiple areas of excoriation NEUROLOGICAL: CN II-XII grossly intact PSYCHOLOGICAL: Alert and conversant, pleasant LABORATORY DATA: Please see below. IMAGING: CT abdomen and pelvis without contrast IMPRESSION: Comparison to prior exam on 03/24/2015. Chronic bronchitis. Bilateral basilar interstitial by pleural thickening. Interval appearance of bilateral groundglass densities in the bases. Liver cirrhosis. Unchanged multiple hepatic cysts. Polycystic disease. Polycystic kidney disease. Unchanged. Enlarged kidneys with a large number of bilateral renal cysts. Prior cholecystectomy. Interval appearance of small amount of free fluid in the abdomen and pelvis. Peritoneal dialysis catheter is again noted. Multifocal thickening of the cord more prominent at the level of the transverse colon. Not present on prior exam. Unchanged prostatomegaly. Unchanged diffuse thickening of the wall of the bladder. Unchanged bilateral fat containing inguinal hernias. Chest x-ray IMPRESSION: Acute bibasilar infiltrates and pleural effusions consistent with pneumonia. PROGNOSIS: Stable, but guarded ACTIVITY: As tolerated. DIET: Renal diet. DISCHARGE PLAN: Problem: Managing health at home Goal: Improve health & wellness Instructions: Follow DC Instruction DISPOSITION: Home. DISCHARGE INSTRUCTIONS: 1. Continue with intraperitoneal Vancomycin every 5 days for the next two weeks ; next IP Vancomycin will be on 05/04/17; follow-up with nephrology at the hemodialysis center to receive infusion 1. Continue with Isoniazid for three more months. ITEMS TO FOLLOWUP ON ON OUTPATIENT: 1. Intraperitoneal Vancomycin. 2. ESRD and peritoneal dialysis. 3. Latent tuberculosis. DISCHARGE CONDITION: Stable, but guarded. TIME SPENT ON DISCHARGE: Greater than 45 minutes. Vital Signs/I&Os Vital Signs Date Time Temp Pulse Resp B/P (MAP) Pulse Ox O2 Delivery O2 Flow Rate FiO2 05/01/17 06:00 98.4 77 18 107/56 (73) 93 Room Air 04/30/17 21:00 2.0 I&O- Last 24 Hours up to 6 AM 05/02/17 06:00 Intake Total 2000 ml Output Total 2910 ml Balance -910 ml Laboratory Data Labs 24H Laboratory Tests 2 05/01/17 05:44: Immature Granulocyte % (Auto) 1.6H, White Blood Count 8.3, Red Blood Count 3.29L , Hemoglobin 10.3L, Hematocrit 32.2L, Mean Corpuscular Volume 97.9H, Mean Corpuscular Hemoglobin 31.3, Mean Corpuscular Hemoglobin Concent 32.0, Red Cell Distribution Width 14.4, Platelet Count 175, Neutrophils (%) (Auto) 64.8, Lymphocytes (%) (Auto) 13.1L, Monocytes (%) (Auto) 8.8H, Eosinophils (%) (Auto) 11.2H, Basophils (%) (Auto) 0.5, Neutrophils # (Auto) 5.4, Lymphocytes # (Auto) 1.1L, Monocytes # (Auto) 0.7, Eosinophils # (Auto) 0.9H, Basophils # (Auto) 0.0 , Immature Granulocyte # (Auto) 0.1H, Nucleated Red Blood Cells % (auto) 0.0, Anion Gap 8, Glomerular Filtration Rate 6.5L, Blood Urea Nitrogen 58H, Creatinine 8.45H, Sodium Level 136, Potassium Level 4.2, Chloride Level 98, Carbon Dioxide Level 30, Calcium Level 8.6L 05/01/17 06:41: Body Fluid WBC (Auto) 4, Body Fluid RBC (Auto) < 2, Peritoneal Fluid Source PERITONEAL, Peritoneal Fluid Color COLORLESS, Peritoneal Fluid Appearance CLEAR CBC/BMP Laboratory Tests 05/01/17 05:44 Red Blood Count 3.29 L, Mean Corpuscular Volume 97.9 H, Mean Corpuscular Hemoglobin 31.3, Mean Corpuscular Hemoglobin Concent 32.0, Red Cell Distribution Width 14.4, Neutrophils (%) (Auto) 64.8, Lymphocytes (%) (Auto) 13.1 L, Monocytes (%) (Auto) 8.8 H, Eosinophils (%) (Auto) 11.2 H, Basophils (% ) (Auto) 0.5, Neutrophils # (Auto) 5.4, Lymphocytes # (Auto) 1.1 L, Monocytes # (Auto) 0.7, Eosinophils # (Auto) 0.9 H, Basophils # (Auto) 0.0, Calcium Level 8.6 L Microbiology Microbiology 04/29/17 Blood Culture - Preliminary, Resulted No growth after 24 hours . All specim... 04/29/17 Blood Culture - Preliminary, Resulted No growth after 24 hours . All specim... 04/25/17 Blood Culture - Final, Complete Micrococcus Luteus 04/25/17 Blood Culture - Final, Complete NO GROWTH AFTER 5 DAYS 04/25/17 Body Fluid Culture - Final, Complete Streptococcus Viridans Group Discharge Medications Scheduled (Senexon-S 8.6-50 mg) 1 Tab Tab, 1 TAB PO BID, (Reported) (Heidi-Nayla) 1 Tab Tab, 1 TAB PO QPM, (Reported) Amiodarone HCl (Amiodarone HCl) 200 Mg Tab, 200 MG PO BID, (Reported) Aspirin (Aspirin 81) 81 Mg Tab, 81 MG PO DAILY, (Reported) Calcitriol (Calcitriol) 0.25 Mcg Cap, 0.25 MCG PO DAILY, (Reported) Cholecalciferol (Vitamin D) 1,000 Unit Tab, 1,000 UNIT PO QPM, (Reported) Febuxostat (Uloric) 40 Mg Tab, 40 MG PO 3XW, (Reported) MON, WED, WED Isoniazid (Isoniazid) 300 Mg Tab, 300 MG PO DAILY, (Reported) Lanthanum Carbonate (Fosrenol) 1,000 Mg Chw, 1,000 MG PO PC, (Reported) Magnesium Oxide (Magnesium Oxide) 400 Mg Tab, 400 MG PO QPM, (Reported) Tamsulosin Hydrochloride (Flomax) 0.4 Mg Cap, 0.4 MG PO QPM, (Reported) Allergies Coded Allergies: Atorvastatin (Verified Allergy, Unknown, 01/29/15) JD ROSALES DO May 01, 2017 09:08 MALINA SPRINGER MD May 04, 2017 22:30
== END 2017-05-01 10:45 | disposition home or self-care (01) | DRG 867 ==
LOC: M ED 01:46 → M ED INP 04:50 → M MSPAV 06:21
PROVIDERS: ADMIT Internal Medicine; ATTEND Internal Medicine Nephrology
PROC: 3E1M39Z Irrigation of Peritoneal Cavity using Dialysate, Percutaneous Approach (ICD-10-PCS; principal; 2017-04-25)
DX: T80.29XA Infection following other infusion, transfusion and therapeutic injection, initial encounter (principal); K65.0 Generalized (acute) peritonitis; N18.6 End stage renal disease; Q61.3 Polycystic kidney, unspecified; N25.81 Secondary hyperparathyroidism of renal origin; G47.33 Obstructive sleep apnea (adult) (pediatric); R76.11 Nonspecific reaction to tuberculin skin test without active tuberculosis; I25.2 Old myocardial infarction; I25.10 Atherosclerotic heart disease of native coronary artery without angina pectoris; Z95.0 Presence of cardiac pacemaker; J44.9 Chronic obstructive pulmonary disease, unspecified; N40.0 Benign prostatic hyperplasia without lower urinary tract symptoms; K59.00 Constipation, unspecified; I50.9 Heart failure, unspecified; M10.30 Gout due to renal impairment, unspecified site; E87.6 Hypokalemia; D63.1 Anemia in chronic kidney disease; E83.39 Other disorders of phosphorus metabolism; I48.2 Chronic atrial fibrillation; B95.5 Unspecified streptococcus as the cause of diseases classified elsewhere; L40.9 Psoriasis, unspecified; Z99.2 Dependence on renal dialysis; Z88.8 Allergy status to other drugs, medicaments and biological substances; Z79.899 Other long term (current) drug therapy; Z79.82 Long term (current) use of aspirin; Z87.891 Personal history of nicotine dependence; Y84.1 Kidney dialysis as the cause of abnormal reaction of the patient, or of later complication, without mention of misadventure at the time of the procedure

== ENCOUNTER → 2017-05-23 | Outpatient (CLI) | payer MEDICARE ==
[~2017-05-23] MED LIST changes: +AMIO200T PO; +MAG400TA PO
--- NOTE | 2017-05-27 21:28 | SLEEPCENT ---
DATE OF PROCEDURE: 05/23/2017 REFERRING PHYSICIAN: Rajni Khan Nocturnal polysomnography was performed for the titration of pressure therapy in this patient with a history of severe obstructive sleep apnea syndrome, apnea hypopnea index of 49. For testing a ResMed Quattro full face mask of medium size was used, 5 cm of water pressure was initially applied to the circuit and the lights were extinguished. 8 hours and 36 minutes of data were reviewed. There were 438 minutes of sleep identified. Sleep latency was short at 2 minutes. Rapid eye movement (REM) latency was short at 52 minutes. Sleep architecture was good with REM cycles. Overall sleep efficiency was 86%. The patient's electrocardiogram showed what appeared to be atrial fibrillation, possibly a pace-made rhythm. Average heart rate over the course of the study was 70 beats per minute. EEG showed reasonably normal waveforms for awake and sleep. Respiratory events were best palliated with CPAP at a pressure of +7. Some limb activity noted, but arousal index from limb events was only 4.9. IMPRESSION: Obstructive sleep apnea syndrome (G47.33). RECOMMENDATION: Nightly use of pressure therapy 7 cm of water.
== END ==
LOC: M SLEEP 19:45
PROVIDERS: ATTEND Nurse Practitioner Adult Health
DX: G47.33 Obstructive sleep apnea (adult) (pediatric) (principal)

== ENCOUNTER → 2017-08-12 | Outpatient (CLI) | payer MEDICARE | LOC: M SMT 11:03 | DX: I50.32 Chronic diastolic (congestive) heart failure (principal) | CPT/HCPCS: 71046 ==

== ENCOUNTER → 2017-11-22 | Outpatient (CLI) | payer MEDICARE ==
[2017-11-22 13:03] LABS: BASO # 0.1 10^3/uL (0.0-0.2); BASO % 0.8 % (0.0-1.0); EOS # 0.3 10^3/uL (0.0-0.50); EOS % 3.8 % (0.0-3.0); HEMOGLOBIN 11.1 g/dl (13.5-17.5); IMMATURE GRANULOCYTE % 0.5 % (0-3.0); LYMPH # 1.6 10^3/uL (1.5-4.5); LYMPH % 21.3 % (24.0-44.0); MEAN CORPUSCULAR HGB CONC 31.7 g/dl (32.0-36.5); MEAN CORPUSCULAR VOLUME 107.4 fl (80.0-96.0); MONO # 0.7 10^3/uL (0.0-0.8); NEUTROPHILS # 4.6 10^3/uL (1.8-7.7); NEUTROPHILS % 63.6 % (36.0-66.0); PLATELET COUNT, AUTOMATED 148 10^3/uL (150-450); RED BLOOD COUNT 3.26 10^6/uL (4.30-6.10); RED CELL DISTRIBUTION WIDTH 14.7 % (11.5-14.5); WHITE BLOOD COUNT 7.3 10^3/uL (4.0-10.0)
[2017-11-22 13:52] LABS: ALBUMIN 3.5 GM/DL (3.2-5.2); ANION GAP 13 MEQ/L (8-16); BLOOD UREA NITROGEN 74 MG/DL (7-18); CALCIUM LEVEL 9.2 MG/DL (8.8-10.2); CARBON DIOXIDE LEVEL 27 MEQ/L (21-32); CHLORIDE LEVEL 100 MEQ/L (98-107); GLOMERULAR FILTRATION RATE 6.8 (>42); GLUCOSE, FASTING 91 MG/DL (70-100); PHOSPHORUS LEVEL 5.3 MG/DL (2.5-4.9); SODIUM LEVEL 140 MEQ/L (136-145)
[2017-11-22 13:54] LABS: CREATININE FOR GFR 8.13 MG/DL (0.70-1.30)
[2017-11-22 13:57] LABS: POTASSIUM SERUM 5.5 MEQ/L (3.5-5.1)
== END ==
LOC: M SMT 10:32
DX: I35.0 Nonrheumatic aortic (valve) stenosis (principal)
CPT/HCPCS: 80069

== ENCOUNTER → 2018-03-09 | Outpatient (CLI) | payer MEDICARE | LOC: M RAD 08:53 | DX: R18.8 Other ascites (principal) | CPT/HCPCS: 76705 ==

== ENCOUNTER → 2018-05-11 | Outpatient (CLI) | payer MEDICARE ==
[~2018-05-11] MED LIST changes: +FLOM0.4C39 PO; -FLOM5CAP PO; +ISOVUE-300 61% 50ML VIAL (Q9967) As Ordered ONE; -LEVA1TAB PO; +LEVA250T13 PO; +LIDOCAINE 2% MDV 20 ML VIAL As Ordered ONE; +MIDAZOLAM INJ 2 MG/2 ML VIAL (J2250) As Ordered ONE; +MIDO2.5T PO; +NEPHTAB PO; +fentaNYL 100 MCG/2 ML INJECTION (J3010) As Ordered ONE
--- NOTE | 2018-05-26 07:46 | REPIR ---
DATE OF PROCEDURE: 05/11/2018 PREPROCEDURE DIAGNOSIS: End stage renal disease, dysfunctional right basilic vein transposition arteriovenous fistula. POSTPROCEDURE DIAGNOSIS: End stage renal disease, dysfunctional right basilic vein transposition arteriovenous fistula. PROCEDURE: Right basilic vein transposition arteriovenous fistulogram, retrograde right brachial artery angiogram, right basilic vein angioplasty with 10 x 8 balloon, right axillary vein angioplasty with 10 x 8 balloon. SURGEON: Dr. Eryn Vernon BIRTH ATTENDANT: Josh Srivastava and Lizet Justin. INDICATION: The patient is an 78-year-old male with end-stage renal disease who dialyzes through a right basilic vein transposition arteriovenous fistula which is aneurysmal as well as pulsatile and has difficulty with cannulation with excessive bleeding on decanalization. The patient will undergo a fistulogram with possible angioplasty, stent and/or atherectomy. Risks, benefits and alternative treatment options were discussed with the patient. ANESTHESIA: Local with sedation with 2 mg Versed, 50 mcg of fentanyl and 2 mL of 2% lidocaine. FLUORO TIME: 1.1 minutes. CONTRAST: 4 mL. SEDATION TIME: Was from 12:08 p.m. to 12:31 p.m. for a total of 23 minutes. Sedation was administered by myself through the access of the arteriovenous fistula. Cardiopulmonary monitoring was performed by the registered nurse in the room under my direct supervision. I was present for and directed the entire case. COMPLICATIONS: None. DRAINS: None. SPECIMENS: None. IMPLANTS: None. PROCEDURE: The patient was taken to the angiography suite, placed supine on the angiography room table and then prepped and draped in a standard surgical fashion. The right basilic vein transposition arteriovenous fistula was cannulated with a micropuncture needle after anesthetizing the overlying skin with 2% lidocaine. The micropuncture wire was advanced to the micropuncture needle which was upsized to a micropuncture sheath. A fistulogram was performed showing the basilic vein to be patent to the junction of the axillary vein where there was an approximate 80% stenosis. The wire was used to cross the lesion after which the basilic vein and axillary vein were angioplastied with 10 x 8 balloon with a prolonged inflation time. During inflation of the 10 x 8 balloon, a retrograde brachial artery angiogram was performed showing no intervention was required. Completion fistulogram showed resolution of the stenosis with excellent flow through the basilic vein into the axillary vein and centrally with no central venous stenosis noted. Catheters and wires were removed. A #2-0 pursestring Prolene suture was placed at the cannulation site for hemostasis. Dressings were then applied. The patient tolerated the procedure well. All instrument, sponge and needle counts were correct at the end of the case. There were no complications. Dr. Vernon was present for and directed the entire case. The patient was transferred to the holding area and subsequently discharged in stable condition. The fistula which was pulsatile prior to the intervention had an easily palpable thrill at the completion of the intervention. RADIOLOGY SUPERVISION INTERPRETATION: The fistulogram showed stenosis at the basilic vein/axillary vein junction with the remainder of the central venous system patent. The basilic vein and axillary vein underwent angioplasty with a 10 x 8 balloon with a followup fistulogram showing resolution of the stenosis. The retrograde brachial artery angiogram performed during inflation of the 10 x 8 balloon showed the remainder of the basilic vein to be patent to the brachial artery with good flow in the brachial artery proximal and distal to the arteriovenous anastomosis with no stenosis at the arteriovenous anastomosis. CONCLUSION: The patient underwent successful angioplasty of the right basilic vein and axillary vein with resolution of the stenosis and sikh of a thrill to the arteriovenous fistula which was pulsatile prior to the intervention.
== END | disposition home or self-care (01) ==
LOC: M IRPRO 09:18
PROVIDERS: ATTEND Surgery Vascular Surgery
DX: T82.858A Stenosis of other vascular prosthetic devices, implants and grafts, initial encounter (principal); N18.6 End stage renal disease
CPT/HCPCS: 36902; 99152; 99153; C1725; C1769; C1894; J2250; J3010; Q9967

== ENCOUNTER → 2019-03-09 | Outpatient (CLI) | payer MEDICARE ==
[~2019-03-09] MED LIST changes: -/TAMS4CA PO; -ASPI1TAB PO; +ASPI81TA26 PO; -FEBU40TA PO; +FEBU40TA4 PO; +ISON300T18 PO; -ISON300T4 PO; -ISOVUE-300 61% 50ML VIAL (Q9967) As Ordered ONE; -LIDOCAINE 2% MDV 20 ML VIAL As Ordered ONE; -MIDAZOLAM INJ 2 MG/2 ML VIAL (J2250) As Ordered ONE; +NEPH1TAB11 PO; -NEPHTAB PO; -SENE8.6T PO; +SENN1TAB38 PO; -fentaNYL 100 MCG/2 ML INJECTION (J3010) As Ordered ONE
== END ==
LOC: M SMT 11:21
PROVIDERS: ATTEND Internal Medicine Cardiovascular Disease
DX: E03.2 Hypothyroidism due to medicaments and other exogenous substances (principal)

== ENCOUNTER → 2019-11-10 | Outpatient (CLI) | payer MEDICARE ==
[~2019-11-10] MED LIST changes: +ISOVUE-300 61% 50ML VIAL As Ordered ONE; +LIDOCAINE 1% MDV 20ML VIAL As Ordered ONE; +MIDAZOLAM INJ 2MG/2ML VIAL (J2250 PER 1MG) As Ordered ONE; +SYNT50TA PO; +VELT1POW PO; +fentaNYL 100 MCG/2 ML INJECTION (J3010) As Ordered ONE
[2019-11-10 15:00] VITALS: BP 149/69
--- NOTE | 2019-11-10 17:15 | ROOPDOC ---
[facility] Report Of Operation Report of Operation DATE OF PROCEDURE: 11/10/19 *PROCEDURE CANCELED* Patient was seen and examined in our preop area. He told me that he has had no trouble with his dialysis, but that the nurses are worried because his right upper extremity brachiocephalic AV fistula is aneurysmal. I ultrasounded his right upper extremity, and although his cephalic vein is very large, I do not see any areas of stenosis through and up to the lateral subclavian vein. I did discuss with him that it is possible he has a central veins stenosis, but with such a great thrill in no pulsatility, it does not seem likely that outflow obstruction is the source of his aneurysmal dilation. He may just have large veins with weaker tavares that easily dilate, which is not necessarily a pathology. He has no ulcerations over the aneurysmal areas of frequent access. He says he has lost a lot of weight lately, and with his arm being very thin, the aneurysmal segments are more noticeable. However, it does not bother him, but he says it does concern the nurses. The patient would prefer not to do a fistulogram today if possible. I think this is reasonable. I do not see obvious signs of outflow obstruction. His fistulas widely patent on ultrasound through to the lateral subclavian and I cannot seem more medial to this. He has no pulsatility. He says he is having good clearances and venous flows. Therefore, we will cancel his procedure for today at his request. I think this is perfectly fine. I would like to see him back in clinic with the vein mapping to see if we have any options for new access should one be needed for the left upper extremity. He says he's had his left upper extremity evaluated before and he did not have options for her left upper extremity autologous fistula. We will confirm this with the vein mapping. It is possible we could do a fistula if there are options available in the left upper extremity and allow this to mature while still using the right upper extremity fistula. However, if no good autologous options are open and we do have an option for a brachial axillary artery graft placement either on the right or the left, we would not need to do this urgently as that can be used within 1-2 weeks after placement and would not require us to do the surgery far in advance. He is agreeable to this plan. We will obtain vein mapping in the bilateral upper extremities and see the patient back in clinic. We will be happy to see him back for a fistulogram if he develops pulsatility, poor venous flows, signs of outflow obstruction at any time. We appreciate the opportunity to participate in the care of this patient. CASSIE BARONE MD Nov 10, 2019 17:15
== END ==
LOC: M IRPRO 14:31
PROVIDERS: ATTEND Surgery Vascular Surgery
DX: N18.6 End stage renal disease (principal); Z53.8 Procedure and treatment not carried out for other reasons

== ENCOUNTER → 2019-12-19 | Outpatient (CLI) | payer MEDICARE ==
[~2019-12-19] MED LIST changes: -AMIO200T PO; +AMIO200T3 PO; -COUM1TAB14 PO; +COUM4TAB8 PO; -ISOVUE-300 61% 50ML VIAL As Ordered ONE; -LIDOCAINE 1% MDV 20ML VIAL As Ordered ONE; -MIDAZOLAM INJ 2MG/2ML VIAL (J2250 PER 1MG) As Ordered ONE; +SENN1TAB96 PO; -fentaNYL 100 MCG/2 ML INJECTION (J3010) As Ordered ONE
== END ==
LOC: M LABSMTC 11:24
PROVIDERS: ATTEND Anesthesiology
DX: Z01.818 Encounter for other preprocedural examination (principal)
CPT/HCPCS: C9803; U0002

== ENCOUNTER 2019-12-20 13:12 | Day surgery (SDC) | payer MEDICARE ==
[~2019-12-20] VITALS: Ht 184.2 cm; Wt 75.2 kg
[~2019-12-20 13:12] MED LIST changes: +AMIO200T PO; -AMIO200T3 PO; +LIDOCAINE 1% MDV 20ML VIAL SQ PRN; +MIDAZOLAM INJ 2MG/2ML VIAL (J2250 PER 1MG) As Ordered ONE; +ONDANSETRON 4MG/2ML VIAL As Ordered ONE; +ceFAZolin SOD 1 GM in D5W MINI-BAG PLUS 50 ML IV ONE; +fentaNYL 100 MCG/2 ML INJECTION (J3010) As Ordered ONE
[2019-12-20] MEDS ORDERED: EMLA CREAM 5GM TUBE (LIDOCAINE/PRILOCAINE) As Ordered ONE (14:09)
[2019-12-20] MEDS ORDERED: D5W/0.2% SODIUM CHLORIDE 1,000 ML IV ONE (14:45)
[2019-12-20] MEDS ORDERED: EMLA CREAM 5GM TUBE (LIDOCAINE/PRILOCAINE) TOP ONE (15:00)
[2019-12-20] MEDS ORDERED: LIDOCAINE 1% SDV 30ML VIAL As Ordered ONE (15:09)
[2019-12-20] MEDS ORDERED: ISOVUE-300 61% 50ML VIAL As Ordered ONE ×2 (15:10→17:26)
[2019-12-20] MEDS ORDERED: BACITRACIN PWD 50,000 UNITS VIAL As Ordered ONE (15:10)
[2019-12-20] MEDS ORDERED: AMIODARONE 150MG/3ML INJ (J0282) As Ordered ONE (15:10)
[2019-12-20] MEDS ORDERED: propofoL 200 MG/20 ML VIAL As Ordered ONE (15:17)
[2019-12-20 16:23] VITALS: BP 122/65
--- NOTE | 2019-12-20 17:13 | RO ---
DATE OF PROCEDURE: 12/20/2019 PROCEDURE: 1. Explantation of depleted pacemaker pulse generator. 2. Testing of old atrial and ventricular pacing leads. 3. Implantation of new dual-chamber pulse generator. IMPLANTING TECHNICAL SERVICE ENGINEER: Dr. Chung Olivares ANESTHESIOLOGIST: Dr. Hayward PREOPERATIVE DIAGNOSES: 1. Depleted pacemaker battery. 2. Tachy-ruel syndrome. 3. AV block (first-degree). 4. Paroxysmal atrial fibrillation. 5. Recurrent nonsustained ventricular tachycardia. POSTOPERATIVE DIAGNOSES: 1. Depleted pacemaker battery. 2. Tachy-ruel syndrome. 3. AV block (first-degree). 4. Paroxysmal atrial fibrillation. 5. Recurrent nonsustained ventricular tachycardia. TYPE OF ANESTHESIA: Monitored local anesthesia. CLINICAL SUMMARY: This 79-year-old father, medically disabled resident of [place] is well-known to my cardiology practice with ischemic, hypertensive, pulmonary and valvular heart disease complicated by abnormal EKG, paroxysmal atrial fibrillation, tachy-ruel syndrome, first-degree AV block, and recurrent nonsustained ventricular tachycardia, currently on amiodarone antiarrhythmic therapy. He has been monitored on a regular basis through my office and was recently found to be showing pacemaker at the elective replacement indicator. His current surgery was arranged. At this point, his chief effort limitation is orthopedic. Denies chest discomfort but does have some shortness of breath with activity. Denies orthopnea. Has been unaware of his heart action. May have occasional dizzy spells with his dialysis but these are orthostatic in nature. Has been free of embolic phenomenon. On examination, he is a slim elderly male, bright and alert, comfortable lying flat. Heart rate 80 bpm and regular blood pressure 116/60 sitting, respiratory rate 16. BMI 21.8. No pallor or icterus. Normal oral moisture. Trachea midline. Jugular veins 2-3 cm above the sternal angle. Normal chest configuration and chest expansion with well-healed pacemaker incision left subclavian region. Good air entry over both lung iraheta with no abnormal adventitious sounds. Apical impulse palpable at the midclavicular line fifth costal space. S1 was soft, S2 was normal. No audible gallops with apical systolic murmur. Soft, nontender abdomen with no dependent edema. Normal pedal pulses. EKG: This showed consistent atrially paced rhythm at 69 bpm. Spontaneous AV conduction with marked first-degree AV block. 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 Somewhat low voltages with incomplete right bundle branch block and slow precordial R wave progression with persistent S waves in V5 and V6; body habitus versus pulmonary disease. ST/T wave abnormalities with prolonged QT interval - amiodarone effect. No significant change from May 09, 2019. DESCRIPTION OF PROCEDURE: In the fasting state following informed consent and with prophylactic Ancef 1 gram IV premedication, the patient was taken to the operating theater. Numerous skin electrodes were applied to facilitate continuous electrocardiographic monitoring. The left subclavian region was prepped and draped in usual fashion and the skin was infiltrated with 1% Xylocaine over the old pacemaker incision line. A 5 cm linear incision was made over the old pacemaker incision and careful dissection was then performed down to the level of his depleted pacemaker which was explanted ([employer] model number [id number], serial number [id number] originally implanted September 24, 2010) and the individual atrial and pacing leads were then disconnected and tested. The right ventricular lead ([employer] model number 2088TC/58, serial number [id number]) measurements were: Stimulation threshold 1.25 volts as 0.4 ms, lead impedance 410 ohms. The capital R wave amplitude measured 18.0 mV. The old atrial lead ([employer] model number 2088TC/52 serial number [id number]) measurements were: Stimulation threshold 0.75 V/0.4 ms/impedance 340 ohms. The P wave amplitude measured 3.1 small mV. These old pacing leads were then connected to the new rate responsive dual-chamber pulse generator ([employer] model number SD8332, serial number [id number]) and appropriate DDD pacing was documented. This device is MRI compatible. The old pacemaker pocket was thoroughly irrigated with a bacitracin solution. The new pulse generator was placed in the pocket and secured in position with a suture through the upper right-hand corner of the epoxy header. The subcutaneous tissues were approximated using a running chromic suture and the skin was closed using jaime. Dry dressing was applied, and the patient was returned to the recovery room in good condition. No apparent complications. Estimated blood loss 2 mL. We will be monitoring him until he is able to ambulate and he will be discharged home today. DISCHARGE MEDICATIONS AND RECOMMENDATIONS: The patient will resume his preoperative no added salt, low-fat, low-cholesterol diet with 1500 mL fluid intake restriction. His medications will resume: Amiodarone 2 mg daily, aspirin 81 mg daily, levofloxacin 100 mcg daily, Ventolin inhaler 2 puffs four times a day, magnesium 400 mg daily, midodrine 5 mg prior to dialysis three times a week, Uloric 40 mg by mouth three times weekly, Senexon-S 8.6-50 mg 1 tablet twice a day, Nephro-Nayla 0.8 mg once daily, lanthanum carbonate 1 gram 2-3 times daily, and Veltassa 8.4 grams three times a week. We have instructed him to perform activities as tolerated, but light activities with his left arm and avoid getting his incision wet until his jaime are removed in my office January 01, 2020 at 9:30 a.m. We have requested that he contact us promptly should he developed any abnormal erythema, swelling or discharge.
[2019-12-20] MEDS ORDERED: GLUCAGON INJ 1MG VIAL As Ordered ONE (17:20)
== END 2019-12-20 16:45 | disposition home or self-care (01) ==
LOC: M SDC 13:12
PROVIDERS: ATTEND Internal Medicine Cardiovascular Disease
DX: Z45.010 Encounter for checking and testing of cardiac pacemaker pulse generator [battery] (principal); I49.5 Sick sinus syndrome; I44.0 Atrioventricular block, first degree; I48.0 Paroxysmal atrial fibrillation; I47.2 Ventricular tachycardia; E03.9 Hypothyroidism, unspecified; J44.9 Chronic obstructive pulmonary disease, unspecified; N40.0 Benign prostatic hyperplasia without lower urinary tract symptoms; Z88.8 Allergy status to other drugs, medicaments and biological substances; Z98.61 Coronary angioplasty status; I25.10 Atherosclerotic heart disease of native coronary artery without angina pectoris; G47.30 Sleep apnea, unspecified; Z79.82 Long term (current) use of aspirin; Z79.899 Other long term (current) drug therapy
CPT/HCPCS: 33228; 36415; 84132; C1785; J0690; J1610; J2250; J2405; J3010; Q9967

== ENCOUNTER → 2019-12-20 | Outpatient (CLI) | payer MEDICARE ==
--- NOTE | 2019-12-20 13:38 | REP ---
BILATERAL UPPER EXTREMITY DUPLEX DOPPLER ARTERIAL AND VENOUS ULTRASOUND FOR A FISTULA MAPPING: Real-time ultrasound evaluation of bilateral upper extremity arterial venous systems is performed for AV fistula mapping. No thrombus is seen in the upper extremity deep veins bilaterally. Note is made of a complex solid mass in the left axilla with internal arterial blood flow with Doppler evaluation measuring 1.9 x 1.6 x 1.7 cm. Right-sided fistula is visualized with velocity at the venous anastomosis 100 cm/s, in the proximal fistula 81.9 cm/s, mid aspect 100 cm/s, distal arterial anastomosis 81.2 cm/s and in the ulnar artery 20 cm/s. Basilic vein at the level of the upper humerus measures 15 mm, at the lower humerus 12 mm and at the distal humerus 11 mm. Cephalic vein on the right measures 2 mm at the level of the humerus proximal and mid aspect and 3 mm at the distal humerus. Right axillary vein measures 14 mm and the distal subclavian venin measures 13 mm. Right subclavian artery distal aspect measures 12 mm, axillary artery 12 mm, brachial artery 11 mm. These all demonstrate monophasic waveforms. Velocity in the right brachial artery is 176.4 cm/s. Please note the right basilic vein to ulnar artery fistula is patent and at the antecubital fossa, is aneurysmal. On the left, the subclavian vein measures 7 mm as does the axillary vein, basilic vein measures 5 mm at the humerus, 4 mm at the distal humerus and 3 mm throughout the forearm, 2 mm at the wrist. The median cubital vein measures 3 mm. Left cephalic vein measures 2 mm throughout the level of the humerus and upper forearm and 1 mm at the wrist. Left subclavian artery measures 9 mm distally, axillary artery 9 mm, brachial artery 7 mm, radial artery 3 mm and ulnar artery 4 mm. Left upper extremity arterial system demonstrates biphasic waveforms and normal flow velocities. Electronically Signed by Sesar Gregory MD 12/20/2019 11:24 P
== END ==
LOC: M RAD 07:39
PROVIDERS: ATTEND Surgery Vascular Surgery
DX: Z01.818 Encounter for other preprocedural examination (principal); N18.6 End stage renal disease; Z99.2 Dependence on renal dialysis

== ENCOUNTER → 2020-03-26 | Outpatient (CLI) | payer MEDICARE ==
[~2020-03-26] MED LIST changes: -AMIO200T PO; +AMIO200T3 PO; +ISOVUE-300 61% 50ML VIAL As Ordered ONE; +LIDOCAINE 1% MDV 20ML VIAL As Ordered ONE; -LIDOCAINE 1% MDV 20ML VIAL SQ PRN; -ONDANSETRON 4MG/2ML VIAL As Ordered ONE; -ceFAZolin SOD 1 GM in D5W MINI-BAG PLUS 50 ML IV ONE
[2020-03-26 16:15] VITALS: BP 124/66
--- NOTE | 2020-03-26 16:22 | ROOPDOC ---
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 Ultrasound-guided access right basilic vein 2. Right upper extremity fistulogram and central venogram 3. Angioplasty basilic vein with 10 x 80 Ely balloon and 10 x 40 conquest balloon 4. Completion venogram SURGEON: Cassie Moya MD ANESTHESIA: Local anesthesia 3 mL lidocaine. Moderate intravenous conscious sedation was administered by Dr. Moya. The patient was independently monitored by registered nurse assigned to the Department of radiology using automated blood pressure, EKG, and pulse oximetry. The detailed sedation record is probably stored in the hospital information system. The following is a brief sedation record: Start time 15:26, stop time 15:43, fentanyl 25 g IV, Versed 0.5 mg IV. CONTRAST: 20 mL Isovue-300 INDICATION FOR PROCEDURE: This a very pleasant 80-year-old gentleman with end- stage renal disease currently experiencing increased pulsatility in his right brachiobasilic AV fistula as well as increased aneurysmal dilation. The patient is concerned that there may be something going on that is causing his fistula to deteriorate and continue to dilate. Risks benefits and alternatives to a fistulogram potential intervention were explained to the patient and he is agreeable to proceed. Informed consent was obtained. INTERPRETATION: 1. The AV anastomosis on ultrasound is widely patent. Color images saved. The basilic vein for 8 cm proximal to the AV anastomosis is also widely patent with no stenoses noted. 2. The basilic vein is quite tortuous over the bicep. It 6 access near the anastomosis, and also zigzags where returns to its normal anatomic position in the upper arm. There are a few areas of stenoses in these areas of angulation, but proximal to this through the axillary artery and central veins, the patient has widely patent flow with no stenoses. There is rapid flow back to the heart. The aneurysmal portions of the fistula and areas of frequent cannulation are partially thrombosed peripherally but otherwise widely patent. 3. After angioplasty of the basilic vein with a 10 x 80 Ely balloon, there is still some residual stenosis, but no extravasation noted. We exchange the balloon for high-pressure 10 x 40 conquest balloon, and following angioplasty with this there is widely patent inflow through the fistula, pulsatility had resolved, and there was an excellent thrill. No extravasation noted. REPORT OF OPERATION: The patient was brought to the angiographic suite in stable condition. His right upper extremity was prepped and draped in a sterile fashion. A timeout was performed. Local anesthesia was administered to skin and subcutaneous tissue over the basilic vein. Ultrasound was used to examine the AV anastomosis and it was found to be widely patent, as well as the basilic vein proximal to the and AV anastomosis. A microneedle was used to access the vein under ultrasound guidance. A wire was passed through this access and a 4 Slovenian sheath was placed and flushed with saline. Sedation was administered without complication. A fistulogram and central venogram were performed. Please see interpretation above. Glidewire was advanced through the fistula into the central system under fluoroscopic guidance. The sheath was exchanged for 7 Slovenian sheath and flushed with saline. A 10 x 80 Ely balloon was used to angioplasty the areas of angulation and stenosis for three-minute inflations. Following this, there is still a little bit of residual stenosis in the balloon was exchanged for a 10 x 40 conquest balloon. High-pressure inflations were used to open areas of stenosis. Following this there was no pulsatility in the fistula, and marched improved thrill in the fistula, and no significant residual stenosis present. No extravasation was noted. We then placed additional local anesthesia around the exit site of the sheath and a Prolene [id number] suture was placed around the sheath and the sheath was removed. The suture was secured in pressure was held for 2 minutes for good hemostasis. Sterile dressings were applied and the patient was taken to recovery in stable condition. He tolerated the procedure and the sedation well. ESTIMATED BLOOD LOSS: Approximately 2 mL. COMPLICATIONS: None. PLAN: It is okay to use the fistula for dialysis. The patient is concerned about the aneurysmal dilation of the fistula. Unfortunately, after 6 years, and with his advanced age, this is not unexpected. We have of couple options. We could place a new left upper extremity brachiobasilic AV fistula, which seems like a viable option based on his most recent vein mapping. He can continue to use his right upper extremity access in the interim, but eventually we can ligate it once the left upper extremity fistula was transposed and working well. Alternatively, we could place a PermCath, and then subsequently do a procedure where we do an interposition artegraft from the basilic vein near the AV anastomosis to the basilic vein near its normal anatomic lie in the mid upper forearm. We would then remove as much of the aneurysmal segment of vein and nonviable skin as we could. This is a little bit of a bigger surgery, and would require more effort for healing, and a little bit more risk. I presented both of these options to the patient. He has a little bit of sedation on board right now, so I'm not sure how much of our conversation he will remember. We will go over with him again in clinic. There is no urgency to new access as his current fistula is working well, so he has time to think about it. Okay to resume home diet medications. We appreciate the opportunity to his pain in the care of this patient. CASSIE MOYA MD Mar 26, 2020 16:22
== END ==
LOC: M IRPRO 13:47
PROVIDERS: ATTEND Surgery Vascular Surgery
DX: T82.590A Other mechanical complication of surgically created arteriovenous fistula, initial encounter (principal); N18.6 End stage renal disease; X58.XXXA Exposure to other specified factors, initial encounter
CPT/HCPCS: 36902; 99152; C1725; C1769; C1894; J1644; J2250; J3010; Q9967

== ENCOUNTER → 2020-04-30 | Outpatient (CLI) | payer MEDICARE ==
[~2020-04-30] MED LIST changes: -ISOVUE-300 61% 50ML VIAL As Ordered ONE; -LIDOCAINE 1% MDV 20ML VIAL As Ordered ONE; +LIDOCAINE W/EPINEPHRINE 1% 20ML VIAL As Ordered ONE; +ceFAZolin 2 GM/D5W 50 ML IV BAG (J0690 PER 500MG) As Ordered ONE
--- NOTE | 2020-04-30 16:56 | ROOPDOC ---
[facility] Report Of Operation Report of Operation DATE OF PROCEDURE: 04/30/20 PREPROCEDURE DIAGNOSES: End-stage renal disease requiring PermCath placement prior to AV fistula revision POSTPROCEDURE DIAGNOSES: Same PROCEDURE: 1. Ultrasound-guided access right internal jugular vein 2. Placement of a 23 cm tunneled PermCath right internal jugular vein SURGEON: Cassie Moya MD ANESTHESIA: Local anesthesia 18 cc lidocaine with epinephrine. Moderate intravenous conscious sedation was supervised by Dr. Moya. The patient was independent Mcallister or by registered nurses sign of the department of ra diology using automated blood pressure, EKG, and pulse oximetry. The details sedation record is permanently started in the hospital information system. The following is a brief sedation record: Start time 16:07, stop time 16:28, Versed 1 mg IV, fentanyl 25 g IV, Ancef 2 g IV. 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 Today we are placing a PermCath in preparation for a revision of his AV fistula in the near future. Risks benefits alternatives to PermCath placement were explained to the patient needs agreeable to proceed. Informed consent was obtained. INTERPRETATION: The right IJ PermCath is in good position with no kinks in the catheter, the tip freely mobile at the right atrial SVC junction, and no pneumothorax is present postprocedure. Okay to use PermCath for dialysis. REPORT OF OPERATION: Patient was brought the angiographic suite in stable condition. His right neck and chest were prepped and draped in a sterile fashion after examining his jugular vein with ultrasound. A timeout was performed. Sedation and antibiotics were administered without complication. Local anesthesia was administered to the skin and subcutaneous tissue over the right chest, over the clavicle to the right jugular access site. A microneedle was used to access the right jugular vein under ultrasound guidance. A wire was passed through this access into the central system under fluoroscopic guidance and a micro-sheath was placed. A small incision was made at the jugular access site and counterincision was made just distal to the clavicle on the right c hest. 23 cm PermCath was tunneled from the right chest to the jugular access site double-cuff was within the subcutaneous tissue. We then performed 2 serial dilations over the wire using the Seldinger technique and placed a peel-away sheath over the wire. The inner cannula and wire were removed and the tips of the catheter were advanced through the peel-away sheath into the central system under fluoroscopic guidance. The peel-away sheath was removed. Both ports sky back and flushed easily. They were heparin locked and appropriate caps were placed. The incisions were irrigated and the jugular access site was closed with deep and superficial interrupted Monocryl sutures. The skin was covered with Dermabond. The exit site on the right chest was closed with Prolene sutures in the catheter was secured to this chest wall a traditional Prolene sutures. Sterile dressings were applied. The patient was taken to recovery in stable condition. He tolerated the procedure and the sedation well. ESTIMATED BLOOD LOSS: Approximately 5 mL. COMPLICATIONS: None. PLAN: Okay to use PermCath for dialysis. Okay to resume home diet medications. Keep head elevated for the rest of the day, no lifting greater than 5 pounds, no strenuous exercise for 48 hours. The patient will be returning for the open revision of his fistula a later date. We appreciate the opportunity to produce patent care of this patient. CASSIE MOYA MD Apr 30, 2020 16:56
[2020-04-30 17:05] VITALS: BP 121/60
== END ==
LOC: M IRPRO 14:45
PROVIDERS: ATTEND Surgery Vascular Surgery
DX: N18.6 End stage renal disease (principal); T82.590A Other mechanical complication of surgically created arteriovenous fistula, initial encounter; I12.0 Hypertensive chronic kidney disease with stage 5 chronic kidney disease or end stage renal disease; E78.00 Pure hypercholesterolemia, unspecified; I25.2 Old myocardial infarction; I49.9 Cardiac arrhythmia, unspecified; X58.XXXA Exposure to other specified factors, initial encounter; Z79.82 Long term (current) use of aspirin; Z79.899 Other long term (current) drug therapy; Z99.2 Dependence on renal dialysis
CPT/HCPCS: 36558; 99152; C1750; C1894; J0690; J1644; J2250; J3010

== ENCOUNTER → 2020-05-30 | Outpatient (CLI) | payer MEDICARE ==
[~2020-05-30] MED LIST changes: +LANT1000 PO; -LIDOCAINE W/EPINEPHRINE 1% 20ML VIAL As Ordered ONE; -MIDAZOLAM INJ 2MG/2ML VIAL (J2250 PER 1MG) As Ordered ONE; +OXYC1TAB23 PO; -ceFAZolin 2 GM/D5W 50 ML IV BAG (J0690 PER 500MG) As Ordered ONE; -fentaNYL 100 MCG/2 ML INJECTION (J3010) As Ordered ONE
== END ==
LOC: M LABSMTC 12:53
PROVIDERS: ATTEND Anesthesiology
DX: Z01.812 Encounter for preprocedural laboratory examination (principal); Z20.828 Contact with and (suspected) exposure to other viral communicable diseases

== ENCOUNTER 2020-06-04 10:01 | Day surgery (SDC) | payer MEDICARE ==
[~2020-06-04] VITALS: Ht 185.4 cm; Wt 74.8 kg
[~2020-06-04 10:01] MED LIST changes: +D5W/0.2% SODIUM CHLORIDE 1,000 ML IV ONE; +LIDOCAINE 1% MDV 20ML VIAL SQ PRN; -OXYC1TAB23 PO
[2020-06-04 10:41] LABS: HEMATOCRIT 36.2 % (42.0-52.0); HEMOGLOBIN 10.9 g/dl (13.5-17.5); MEAN CORPUSCULAR HEMOGLOBIN 29.2 pg (27.0-33.0); MEAN CORPUSCULAR HGB CONC 30.1 g/dl (32.0-36.5); MEAN CORPUSCULAR VOLUME 97.1 fl (80.0-96.0); RED BLOOD COUNT 3.73 10^6/uL (4.30-6.10); WHITE BLOOD COUNT 2.8 10^3/uL (4.0-10.0)
[2020-06-04] MEDS ORDERED: EMLA CREAM 5GM TUBE (LIDOCAINE/PRILOCAINE) As Ordered ONE (10:46)
[2020-06-04 10:55] LABS: CALCIUM LEVEL 9.2 MG/DL (8.8-10.2); CREATININE FOR GFR 3.77 MG/DL (0.70-1.30); GLOMERULAR FILTRATION RATE 16.5 (>35); POTASSIUM SERUM 3.1 MEQ/L (3.5-5.1)
[2020-06-04 10:57] LABS: PLATELET COUNT, AUTOMATED 74 10^3/uL (150-450)
[2020-06-04] MEDS: ceFAZolin SOD 2 GM in IV 1 EA IV ONE (12:57)
[2020-06-04] MEDS ORDERED: LIDOCAINE 2% 100MG/5ML SDV (FOR ANES.) As Ordered ONE (13:27)
[2020-06-04] MEDS ORDERED: propofoL 200 MG/20 ML VIAL As Ordered ONE (13:27)
[2020-06-04] MEDS ORDERED: fentaNYL 100 MCG/2 ML INJECTION (J3010) As Ordered ONE (13:27)
[2020-06-04] MEDS ORDERED: ROCURONIUM BROMIDE 50 MG/5 ML VIAL As Ordered ONE (13:27)
[2020-06-04] MEDS: HEPARIN SOD (PORCINE) 5000UNITS/ML 1ML VIAL/SYRINGE As Ordered ONE ×3 (13:30→14:13)
[2020-06-04] MEDS ORDERED: dexameTHASONE 4 MG/ML 1ML VIAL (J1100 PER 1MG) As Ordered ONE (13:34)
[2020-06-04] MEDS: LIDOCAINE W/EPINEPHRINE 1% 20ML VIAL As Ordered ONE (13:51)
[2020-06-04] MEDS ORDERED: ACETAMINOPHEN 1000MG 100ML IV BTL (OFIRMEV) (J0131 PER 10MG) As Ordered ONE (13:59)
[2020-06-04] MEDS ORDERED: ONDANSETRON 4MG/2ML VIAL As Ordered ONE (14:03)
[2020-06-04] MEDS ORDERED: SUGAMMADEX SODIUM 500 MG/5 ML VIAL (BRIDION) As Ordered ONE (14:03)
[2020-06-04] MEDS ORDERED: PHENYLephrine HCL 500 MCG/5 ML (100MCG/ML) SYRINGE (J2370) As Ordered ONE ×2 (14:13→15:06)
[2020-06-04] MEDS: BUPIVACAINE HCL 0.5% 30 ML VIAL As Ordered ONE (15:20)
--- NOTE | 2020-06-04 15:43 | ROOPDOC ---
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 Tunneled interposition Artegraft jump graft from right basilic vein proximal to AV anastomosis to basilic vein near the axilla SURGEON: Cassie Moya MD ANESTHESIA: GETA and local INDICATION FOR PROCEDURE: This is a very pleasant 80-year-old gentleman with a long-standing history of right brachiobasilic transposed AV fistula that has significant aneurysmal changes in the areas of frequent access and very thin skin overlying the aneurysms, worrisome to the patient for possible rupture and limiting the nurses where they feel comfortable to access the fistula. The vein itself is large proximal to the AV anastomosis and large more proximal on the arm towards the axillary vein, so I discussed with the patient the option for a basilic basilic interposition graft with Artegraft excluding the aneurysmal segment, with removal of the largest aneurysm and ligation of the degenerated portion of the basilic vein. I told him we would remove as much of the aneurysms I could safely from her incision, but that some of it would be left behind him which is quite often resorb over time. He is agreeable to this plan. We went over the risks benefits alternatives, and I discussed with him he would need of PermCath for dialysis prior to the fistula revision and we have already place a PermCath and is working successfully for dialysis. Informed consent was obtained REPORT OF OPERATION: Patient was brought to the operating room in stable condition. General anesthesia and antibiotics were administered without complication. His right upper extremity was prepped and draped in sterile fashion. A timeout was performed. The basilic vein is somewhat tortuous after transposition, remain a longitudinal incision over the largest and tenderness skinned aneurysm and the basilic vein near the AV anastomosis. Due to the patient's very thin skin, great care was taken to dissected down through the minimal subcutaneous tissue to the vein. We first isolated the basilic vein near the AV anastomosis and it was skeletonized proximally and distally. A vessel loop was placed. Next we continued our dissection more proximally up the arm towards the aneurysmal segment. We carefully dissected out the largest of the aneurysms from the very tenuous skin overlying it, and then circumferentially dissected out the aneurysm as well. Next, a longitudinal incision was made over the basilic vein near the upper arm. This was carried down to the subcutaneous tissues Bovie cautery and the vein was identified, circumferentially skeletonized proximally and distally. Next, a profunda clamp was placed on the basilic vein near the AV anastomosis and we transected the vein and then beveled it for a widely patent anastomosis with Artegraft. The Artegraft was also beveled. We anastomosis the Artegraft to the arterial side of the basilic vein with running 5-0 Prolene suture, care taken not to narrow the anastomosis. This was done and an end-to-end fashion. Before the final sutures are placed, clamp was placed on the graft and we restarted flow to make sure we that we did not secure the suture too tight and that we did not pursestring the anastomosis. Good hemostasis was noted as the final sutures were placed. We removed the aneurysmal segment of vein and sent this for pathology. There was still a minimally aneurysmal segment that was left behind, which was exsanguinated and then suture ligated and oversewn. Although it filled slightly from likely small tributaries, it is no longer pressurized and is soft. Next, we tunneled the graft around the last bit of residual aneurysmal basilic vein towards her incision over the proximal basilic vein in the upper arm. We flushed the graft to make sure it was not twisted and then beveled the graft. The suture ligated the basilic vein distally as of profunda clamp was placed proximally. The vein was then beveled and an end-to-end anastomosis was performed making sure that this would be tension-free. 5-0 Prolene suture was used in a running fashion and before the final knots were placed, we restarted flow in order to flush the graft and make sure that we did not narrow the anastomosis with her closure. Following this, that hemostasis was noted and there was an excellent thrill and the graft. Doppler confirmed excellent flow in through and outflow for the graft. We irrigated with copious amounts of saline. Bovie cautery was used for hemostasis. There was an area of nonviable skin that was resected, approximately 5 cm length by 3 cm width. We then closed the deep tissues reapproximated with running Vicryl suture. The dermal layer was approximated with running Vicryl suture. The skin was closed with running subcuticular Monocryl suture. The other incision was also irrigated and closed with deep and superficial layers of 2-0 Vicryl suture and the skin was closed with running subcuticular Monocryl suture. Both incisions were cleaned and dried and were hemostatic. Mastisol and Steri- Strips replace the length the wound along with 4 x 4's and Tegaderms. The patient was allowed to awaken from anesthesia was taken to recovery in stable condition. He tolerated the procedure well. 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 COMPLICATIONS: None PLAN: It is okay for the patient to discharge home today. He should avoid strenuous exercise or lifting more than 5 pounds with his right arm until his incisions are completely healed. Steri-Strips get wet or down, they should be patent dry. Okay remove the Tegaderms and gauze after 48 hours believe the Steri-Strips intact for 7-10 days to help the incisions to heal. The patient should continue to use his PermCath for dialysis until I have cleared his new graft for use. Before that can happen, the patient has to completely heal his incisions. His skin is a little tenuous at baseline, so we want to be very careful to make sure he is healed prior to using the fistula. He should continue to use his squeeze ball to help with circulation in the right arm. We appreciate the opportunity to participate in the care of this patient. CASSIE MOYA MD Jun 04, 2020 15:43
[2020-06-04] MEDS ORDERED: OXYC1TAB23 PO (15:47)
[2020-06-04] MEDS ORDERED: ONDANSETRON 4MG/2ML VIAL IV PRN (16:00)
[2020-06-04] MEDS ORDERED: fentaNYL 100 MCG/2 ML INJECTION (J3010) IV PRN (16:00)
[2020-06-04] MEDS ORDERED: NS 1,000 ML IV SCH (16:00)
[2020-06-04 16:55] VITALS: BP 133/65
[2020-06-05] MEDS ORDERED: OXYC1TAB23 PO (17:04)
== END 2020-06-04 17:02 | disposition home or self-care (01) ==
LOC: M SDC 10:01
PROVIDERS: ATTEND Surgery Vascular Surgery
DX: T82.590A Other mechanical complication of surgically created arteriovenous fistula, initial encounter (principal); N18.6 End stage renal disease; I12.0 Hypertensive chronic kidney disease with stage 5 chronic kidney disease or end stage renal disease; N25.81 Secondary hyperparathyroidism of renal origin; D63.1 Anemia in chronic kidney disease; I25.10 Atherosclerotic heart disease of native coronary artery without angina pectoris; I25.2 Old myocardial infarction; I48.91 Unspecified atrial fibrillation; J44.9 Chronic obstructive pulmonary disease, unspecified; L40.9 Psoriasis, unspecified; E55.9 Vitamin D deficiency, unspecified; E78.5 Hyperlipidemia, unspecified; G47.33 Obstructive sleep apnea (adult) (pediatric); N40.0 Benign prostatic hyperplasia without lower urinary tract symptoms; M10.9 Gout, unspecified; Q61.3 Polycystic kidney, unspecified; Z79.82 Long term (current) use of aspirin; Z79.890 Hormone replacement therapy; Z79.899 Other long term (current) drug therapy; Z95.0 Presence of cardiac pacemaker; Z95.5 Presence of coronary angioplasty implant and graft; Z99.2 Dependence on renal dialysis
CPT/HCPCS: 36415; 36819; 37607; 80048; 85027; 85049; 85055; 88304; C1768; J0131; J0690; J1100; J1644; J2370; J2405; J3010

== ENCOUNTER → 2020-09-10 | Outpatient (CLI) | payer MEDICARE ==
[~2020-09-10] MED LIST changes: -D5W/0.2% SODIUM CHLORIDE 1,000 ML IV ONE; +ISOVUE-300 61% 50ML VIAL As Ordered ONE; +LIDOCAINE 1% MDV 20ML VIAL As Ordered ONE; -LIDOCAINE 1% MDV 20ML VIAL SQ PRN; +LIDOCAINE W/EPINEPHRINE 1% 20ML VIAL As Ordered ONE; -MAG400TA PO; +MAGN400T35 PO; +MIDAZOLAM INJ 2MG/2ML VIAL (J2250 PER 1MG) As Ordered ONE; +OXYC1TAB23 PO; +fentaNYL 100 MCG/2 ML INJECTION (J3010) As Ordered ONE
--- NOTE | 2020-09-10 16:12 | ROOPDOC ---
[facility] Report Of Operation Report of Operation DATE OF PROCEDURE: 09/10/20 PREPROCEDURE DIAGNOSES: End-stage renal disease with increased pulsatility right upper extremity AV access POSTPROCEDURE DIAGNOSES: Same PROCEDURE: 1. Ultrasound-guided access right upper extremity AV access 2. Right fistulogram and central venogram 3. Angioplasty right graft basilic vein anastomosis and proximal basilic vein with 9 x 40 [place] balloon 4. Completion venogram SURGEON: Cassie Moya MD ANESTHESIA: Local anesthesia 2 mL lidocaine. Moderate intravenous conscious sedation was administered by Dr. Moya. The patient was independently monitored by registered nurse assigned to the Department of radiology using automated blood pressure, EKG, and pulse oximetry. The detailed sedation record is permanently stored in the hospital information system. The following is a brief sedation record: Start time 15:21, stop time 15:46, Versed 0.5 mg IV, fentanyl 25 g IV. CONTRAST: 15 mL Isovue-300 INDICATION FOR PROCEDURE: This is a very pleasant 80-year-old gentleman with end-stage renal disease and recent history of excision of the aneurysmal portion of his right brachiobasilic AV fistula with an interposition graft from the brachial artery to the proximal basilic vein. He now has a little bit of increased bleeding time and pulsatility in his AV access, and before we remove his PermCath we'd like to perform a fistulogram and make sure there is no need for intervention to improve his outflow. We discussed the risks benefits and alternatives to the right upper extremity fistulogram, potential intervention, and also PermCath removal if timing is appropriate. The patient is agreeable to proceed. Informed consent was obtained. INTERPRETATION: 1. The AV anastomosis is widely patent with no stenosis noted on ultrasound, please see imaging. 2. Fistulogram of the right upper extremity reveals that the graft is widely patent over the bicep with no signs of stenosis or thrombosis. It graft venous anastomosis has a mild stenosis of about 20-30%. The basilic vein eek has a 30% stenosis where it returns to its normal anatomic lie and junctures with the axillary vein. The axillary vein, subclavian vein are widely patent with excellent flow back to the heart. 3. After angioplasty of the graft basilic vein anastomosis and the proximal basilic vein, there is widely patent flow within improve thrill and no significant residual stenosis noted. No extravasation. REPORT OF OPERATION: The patient was brought to the angiographic suite in stable condition. His right upper extremity was prepped and draped in a sterile fashion. A timeout was performed. All anesthesia was administered to the skin and subcutaneous tissue. Ultrasound was used to examine the AV anastomosis and it was noted to be widely patent. Ultrasound was used to gain access to the AV graft near the AV anastomosis with a microneedle. A wire was passed through this access and the needle was removed and a 4 [place] sheath was placed and flushed with saline. Sedation was administered without complication. Wire was passed through this access under fluoroscopic guidance and a fistulogram and central venogram were performed, please see interpretation above. We then exchange the sheath over the wire for some [place] sheath and flushed the sheath with saline. A 9 x 40 [place] balloon was advanced over the wire in use for three-minute inflations across both areas of mild stenosis. Following this, there was a marked improvement in thrill, no extravasation, no significant residual stenosis. [id number] Prolene suture was placed at the sheath site and the wire balloon and sheath were removed and good hemostasis was noted. Sterile dressings were applied. The patient was then taken to recovery in stable condition. In recovery with the head of bed elevated, the right neck and chest were prepped and draped in a sterile fashion. A timeout was performed. The external sutures were cut and removed. Blunt dissection was used to loosen the catheter from the subcutaneous tissue until the cuff was exposed. We then held pressure in the jugular access site and removed the catheter. It was inspected, and the entire catheter was removed, no portion was left behind. Pressure was held for 10 minutes for good hemostasis and sterile dressings were applied. The patient was monitored for 30 minutes post catheter removal to make sure he did not develop a hematoma or bleeding. He tolerated this procedure well. ESTIMATED BLOOD LOSS: Approximately 4 mL. COMPLICATIONS: None. PLAN: It is okay to use the AV access for dialysis. It is okay to resume home diet and medications. The patient should try to keep his head elevated for the rest of the day to diminish risk of bleeding or bruising from the jugular catheter removal. No lifting greater than 5 pounds, no strenuous exercise. We appreciate the opportunity to participate in the care of this patient. CASSIE MOYA MD Sep 10, 2020 16:12
[2020-09-10 16:30] VITALS: BP 109/63
== END ==
LOC: M IRPRO 14:25
PROVIDERS: ATTEND Surgery Vascular Surgery
DX: T82.590A Other mechanical complication of surgically created arteriovenous fistula, initial encounter (principal); N18.6 End stage renal disease; E78.00 Pure hypercholesterolemia, unspecified; I12.0 Hypertensive chronic kidney disease with stage 5 chronic kidney disease or end stage renal disease; I25.2 Old myocardial infarction; X58.XXXA Exposure to other specified factors, initial encounter; Z79.82 Long term (current) use of aspirin; Z79.890 Hormone replacement therapy; Z79.899 Other long term (current) drug therapy; Z87.891 Personal history of nicotine dependence; Z95.0 Presence of cardiac pacemaker; Z95.4 Presence of other heart-valve replacement; Z99.2 Dependence on renal dialysis
CPT/HCPCS: 36902; 99152; 99153; C1725; C1769; C1894; J1644; J2250; J3010; Q9967

== ENCOUNTER → 2021-08-05 | Outpatient (CLI) | payer MEDICARE ==
[~2021-08-05] MED LIST changes: +ACYC1CAP20 PO; -AMIO200T3 PO; +AMIO200T49 PO; +DIFL200T PO; +DOCU100C16 PO; -ISOVUE-300 61% 50ML VIAL As Ordered ONE; +LEVO250T3 PO; -LIDOCAINE 1% MDV 20ML VIAL As Ordered ONE; -LIDOCAINE W/EPINEPHRINE 1% 20ML VIAL As Ordered ONE; +LOKE5PAK PO; -MIDAZOLAM INJ 2MG/2ML VIAL (J2250 PER 1MG) As Ordered ONE; +VENTAER INH; -fentaNYL 100 MCG/2 ML INJECTION (J3010) As Ordered ONE
== END ==
LOC: M RAD 10:23
PROVIDERS: ATTEND Podiatrist Foot & Ankle Surgery
DX: I73.9 Peripheral vascular disease, unspecified (principal)

== ENCOUNTER → 2021-08-14 | Outpatient (CLI) | payer MEDICARE ==
[~2021-08-14] MED LIST changes: +ACETAMINOPHEN *IV* 1,000 MG IV ONE; +ISOVUE-300 61% 50ML VIAL As Ordered ONE; +LIDOCAINE 1% MDV 20ML VIAL As Ordered ONE; +MIDAZOLAM INJ 2MG/2ML VIAL (J2250 PER 1MG) As Ordered ONE; +NS 1,000 ML IV SCH; +ONDANSETRON 4MG/2ML VIAL IV PRN; +PERCOCET 5MG/325MG TAB As Ordered ONE; +PERCOCET 5MG/325MG TAB PO PRN; +SODI15SS PO; +diphenhydrAMINE 50MG/ML VIAL (J1200) As Ordered ONE; +fentaNYL 100 MCG/2 ML INJECTION As Ordered ONE
[2021-08-14 17:47] VITALS: BP 98/52
== END ==
LOC: M IRPRO 06:53
PROVIDERS: ATTEND Radiology Diagnostic Radiology
DX: I70.261 Atherosclerosis of native arteries of extremities with gangrene, right leg (principal)
CPT/HCPCS: 36246; C1769; C1887; C1894; J1644; Q9967